=== PATIENT | male | born 1955 | race Caucasian/White ===

== ENCOUNTER 2022-10-05 17:05 | Emergency (ER) | payer MEDICARE ==
--- NOTE | 2022-10-05 17:11 | ERPHSYRPT ---
- History of Present Illness Time Seen by Provider: 10/05/22 17:11 Source: patient, family Exam Limitations: no limitations Physician History: This is a 67 y/o white male s/p right bka who fell this morning after getting his left foot caught in a truck when he was trying to get out. Patient did not hit his head and has no other pain complaints. Patient has a history of peripheral vascular disease, peripheral neuropathy, hyperlipidemia, coronary disease, gastroesophageal reflux disease and insulin-dependent diabetes. Occurred: this morning Reason for Fall: lost balance Injuries/Pain Location: lower extremity (left foot and ankle) Loss of Consciousness: no loss of consciousness Quality: aching Severity of Pain-Max: moderate Severity of Pain-Current: mild (to modrate) Associated Symptoms (Fall): extremity injury ( left foot and ankle) Allergies/Adverse Reactions: No Known Drug Allergies Allergy (Unverified 10/05/22 17:31) Home Medications: Fenofibrate 160 mg PO DAILY 10/05/22 [History] Gabapentin [Neurontin ] 300 mg PO DAILY 10/05/22 [History] Insulin Lispro 35 unit SQ UD 10/05/22 [History] Insulin Regular, Human [Humulin R U-500 Kwikpen] 0 unit SQ TID 10/05/22 [History] Isosorbide Mononitrate [Isosorbide Mononitrate ER] 60 mg PO DAILY 10/05/22 [History] PANTOPRAZOLE 40 mg Tablet [Protonix 40MG Tablet] 40 mg PO DAILY 10/05/22 [History] Semaglutide [Ozempic] 1 mg SQ WEEKLY 10/05/22 [History] Travel Risk - International Travel Have you traveled outside of the country in past 3 weeks: No - Coronavirus Screening Are you exhibiting any of the following symptoms?: No Close contact with a COVID-19 positive Pt in past 14-21 Days: No - Review of Systems Constitutional: No Symptoms Eyes: No Symptoms Ears, Nose, & Throat: No Symptoms Respiratory: No Symptoms Cardiac: No Symptoms Abdominal/Gastrointestinal: No Symptoms Genitourinary Symptoms: No Symptoms Musculoskeletal: Fall, Injury (Left foot and ankle) Skin: No Symptoms Neurological: No Symptoms Psychological: No Symptoms Endocrine: No Symptoms Hematologic/Lymphatic: No Symptoms Immunological/Allergic: No Symptoms All Other Systems: Reviewed and Negative - Past Medical History Pertinent Past Medical History: Yes Neurological History: Peripheral Neuropathy Cardiac History: Coronary Artery Disease, High Cholesterol, Hypertension, Peripheral Vascular Disease Respiratory History: No Pertinent History Endocrine Medical History: Diabetes Type II Musculoskeletal History: Arthritis Other Medical History: CABG 2014, BKA 2019, sugar read in abdomen. - Nursing Vital Signs Nursing Vital Signs: Initial Vital Signs Temperature 97.5 F 10/05/22 17:14 Pulse Rate 101 H 10/05/22 17:14 Blood Pressure 106/73 10/05/22 17:14 O2 Sat by Pulse Oximetry 98 10/05/22 17:14 Pain Scale Pain Intensity 5 - Sahil Coma Score Best Eye Response ([place]): (4) open spontaneously Best Verbal Response (Sahil): (5) oriented Best Motor Response ([place]): (6) obeys commands Sahil Total: 15 - Physical Exam General Appearance: no apparent distress, alert, anxiety Head Injury: no evidence of injury Eye Exam: PERRL/EOMI, eyes nml inspection ENT Exam: airway nml, nml ext.inspection, No evidence of ENT injury Neck Exam: supple, trachea midline, full range of motion, normal alignment, normal inspection Respiratory/Chest Exam: No chest tenderness, No respiratory distress Gastrointestinal Exam: No tenderness Rectal Exam: not done Back Exam: normal inspection, normal range of motion, No CVA tenderness, No vertebral tenderness Extremity Exam: normal inspection, normal range of motion, capillary refill <3 sec, pelvis stable, tenderness (Left foot and ankle), No evidence of injury Neurologic Exam: alert, oriented x 3, cooperative, 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 interpreted by me xray left foot no acute fx or dislocation. interpreted by me This patient's medical issue is 1 of low complexity. This is based on the review of the patient's past medical history, review of the patient's medication list, review of the patient's medical allergy list, review of the history of present illness and physical examination. Work-up includes x-ray of the patient's left foot and left ankle. I interpreted the results of the x-ray. There are no acute findings. Discharge plan is to wear the Butch wrap for comfort. Keep the left leg elevated above the level of heart. Ice pack to the tender areas. Use Tylenol and ibuprofen for pain control and swelling control. Medical Desision Making - Discussion of managment Agreed on:: Treatment plan, need for follow-up - Diagnostic Testing Diagnostic test were ordered, analyzed, and reviewed by me: Yes Radiological Interpretation: Interpreted by me - Risk of complications Low Risk: Low risk of morbidity from additional dx testing or treatment - Departure Departure Disposition: Home Clinical Impression: Left ankle sprain, Sprain of left foot Condition: Stable Critical Care Time: No Referrals: FARHAN OCAMPO MD [Primary Care Provider] - Follow up/PCP as directed Additional Instructions: Ice pack to area 3 times a day for the next 48 hours. Use Tylenol and ibuprofen for pain control. Wear the Butch wrap for comfort. Elevate the left lower extremity above the level of your heart when not ambulating to help control pain and swelling. Follow-up with your primary care provider for persistent pain and swelling.
[2022-10-05 17:31] VITALS: BP 106/73; PULSE 101; O2SAT 98
--- NOTE | 2022-10-06 08:49 | XRAY ---
Indication: Status post fall. Limited range of motion. Comparison: None 3 view left ankle demonstrates osteopenia, tiny heel spurs, moderate scattered vascular calcifications, mild lateral soft tissue swelling, and medial lower leg vascular clip. No other bony, articular, or soft tissue abnormalities.
--- NOTE | 2022-10-06 08:51 | XRAY ---
Indication: Status post fall. Limited range of motion. Comparison: None 3 nonweightbearing views left foot demonstrates osteopenia, tiny heel spurs, moderate scattered vascular calcifications, mild diffuse soft tissue swelling, and 1 cm linear foreign body plantar soft tissues between 4th/5th metatarsals. No other bony, articular, or soft tissue abnormalities.
== END 2022-10-05 18:56 | disposition home or self-care (01) ==
LOC: ED 17:05
DX: S93.402A Sprain of unspecified ligament of left ankle, initial encounter (principal); S93.602A Unspecified sprain of left foot, initial encounter; V58.4XXA Person boarding or alighting a pick-up truck or van injured in noncollision transport accident, initial encounter; Z89.511 Acquired absence of right leg below knee; E11.42 Type 2 diabetes mellitus with diabetic polyneuropathy; E78.5 Hyperlipidemia, unspecified; I10 Essential (primary) hypertension; Z79.4 Long term (current) use of insulin; Z79.899 Other long term (current) drug therapy; Z79.85 Long-term (current) use of injectable non-insulin antidiabetic drugs
CPT/HCPCS: 73610; 73630; 99283

== ENCOUNTER 2023-08-17 13:30 | Emergency (ER) | payer MEDICARE ==
[2023-08-17 13:53] VITALS: RESP 20; TEMP 99
[2023-08-17] MEDS ORDERED: NORCO 5/325 MG ONE ×2 (16:44→19:20)
[2023-08-17] MEDS: NORCO 5/325 MG PO ONE ×2 (16:46→19:20)
[2023-08-17 17:14] LABS: Absolute Neutrophil Ct (ANC) 4.43 x10^3/uL (1.4-6.9); BASOPHIL % 0.9 % (0.0-0.4); Basophil (Absolute #) 0.07 x10^3/uL (0-0.4); Eosinophil % 2.5 % (0.00-5.0); Hematocrit 41.3 % (42-50); Hemoglobin 13.3 g/dL (12.5-18.0); IMMATURE GRAN # 0.04 x10^3u/L (0.00-0.03); IMMATURE GRAN % 0.5 % (0.00-0.4); Lymphocyte (Absolute #) 2.55 x10^3/uL (1.0-4.6); Lymphocytes % 32.4 % (24.0-44.0); Mean Cell Volume 85.7 fL (78-100); Mean Corpuscular Hemoglobin 27.6 pg (26-32); Mean Corpuscular Hgb Concent. 32.2 g/dL (32-36); Mean Platelet Volume 9.4 fL (7.5-11.0); Monocyte (Absolute #) 0.57 x10^3/uL (0.0-1.3); Monocytes % 7.3 % (0.0-12.0); Neutrophil % 56.4 % (36.0-66.0); Platelet Count 220 x10^3/uL (150-450); Red Blood Count 4.82 x10^6/uL (4.1-5.6); White Blood Count 7.9 x10^3/uL (4.0-10.5)
[2023-08-17 17:30] LABS: ALBUMIN 4.8 g/dL (3.5-5.0); ANION GAP 14.7 MEQ/L (5-15); BILIRUBIN,TOTAL 0.6 mg/dL (0.2-1.3); Calcium 10.9 mg/dL (8.4-10.2); Creatinine 1 1.2 mg/dL (0.66-1.25); EST GLOMERULAR FILTRATION RATE 65.5 ML/MIN; Potassium 4.2 mmol/L (3.5-5.1); Total Protein 7.5 g/dL (6.3-8.2)
--- NOTE | 2023-08-17 18:41 | ERPHSYRPT ---
- History of Present Illness Time Seen by Provider: 08/17/23 16:26 Source: patient, family Exam Limitations: physical impairment Patient Subjective Stated Complaint: Pt states "My left foot is red and I have been trying to take care of it but for the past two weeks the pain is horrible." Triage Nursing Assessment: Pt presented alert and oriented X 3, skin pwd. Pt able to speak in clear full sentences. Pt right foot amutated just above ankle, pt left foot has closed wounds with scabs and foot is red, hot, tender and swollen. Physician History: 68-year-old male with history of diabetes mellitus with right below-knee amputation, hypertension, contractures, limited mobility presented in the ER with 2 weeks history of left foot swelling and redness. He has been seen outpatient and has finished course of Omnicef with no significant relief. Patient denies any fever or chills but does report having increasing pain. No fall or trauma to the foot/ankle reported. No obvious skin break. Allergies/Adverse Reactions: No Known Drug Allergies Allergy (Verified 08/17/23 13:53) Home Medications: Fenofibrate 160 mg PO DAILY 10/05/22 [History] Gabapentin [Neurontin ] 300 mg PO DAILY 10/05/22 [History] Insulin Lispro 35 unit SQ UD 10/05/22 [History] Insulin Regular, Human [Humulin R U-500 Kwikpen] 0 unit SQ TID 10/05/22 [History] Isosorbide Mononitrate [Isosorbide Mononitrate ER] 60 mg PO DAILY 10/05/22 [History] PANTOPRAZOLE 40 mg Tablet [Protonix 40MG Tablet] 40 mg PO DAILY 10/05/22 [History] Clopidogrel Bisulfate [Clopidogrel] 75 mg PO DAILY 08/17/23 [History] Metoprolol Succinate [Toprol Xl] 25 mg PO DAILY 08/17/23 [History] Hx Tetanus, Diphtheria Vaccination/Date Given: No (couple years) Hx Influenza Vaccination/Date Given: Yes Hx Pneumococcal Vaccination/Date Given: Yes Immunizations Up to Date: Yes Travel Risk - International Travel Have you traveled outside of the country in past 3 weeks: No - Coronavirus Screening Are you exhibiting any of the following symptoms?: No Close contact with a COVID-19 positive Pt in past 14-21 Days: No - Vaccine Status Have you recieved a Covid-19 vaccination: Yes School Custodian: [employer] - Vaccination Dates Date of 2cond Vaccination (if applicable): 2020 - Review of Systems Constitutional: No Symptoms Eyes: No Symptoms Respiratory: No Symptoms Cardiac: No Symptoms Abdominal/Gastrointestinal: No Symptoms Genitourinary Symptoms: No Symptoms Skin: Cellulitis, Rash Neurological: No Symptoms Endocrine: No Symptoms Hematologic/Lymphatic: No Symptoms - Past Medical History Pertinent Past Medical History: Yes Neurological History: Other Cardiac History: Hypertension, Myocardial Infarction ([place]) Respiratory History: No Pertinent History Endocrine Medical History: Diabetes Type II, Other Musculoskeletal History: No Pertinent History Other Medical History: GABAPENTIN, MEDICATION FOR PHANTOM PAINS. CABCX3, STINTS. [place] X2. R BKA. - Past Surgical History Past Surgical History: Yes Cardiac: Other Musculoskeletal: Amputation Other Surgical History: Rt hand tendons. triple bypass. rt leg amputation 2019 - Social History Smoking Status: Former smoker Exposure to second hand smoke: No Drug Use: none Patient Lives Alone: Yes - Nursing Vital Signs Nursing Vital Signs: Initial Vital Signs Temperature 99.0 F 08/17/23 13:48 Pulse Rate 110 H 08/17/23 13:48 Respiratory Rate 20 08/17/23 13:48 Blood Pressure 112/63 08/17/23 13:48 O2 Sat by Pulse Oximetry 97 08/17/23 13:48 Pain Scale Pain Intensity 0 - Physical Exam General Appearance: no apparent distress, alert Eye Exam: PERRL/EOMI Ears, Nose, Throat Exam: normal ENT inspection Neck Exam: normal inspection, full range of motion Respiratory Exam: normal breath sounds, lungs clear Cardiovascular Exam: regular rate/rhythm, normal heart sounds Extremity Exam: other (Right below-knee amputation, left foot swelling with mild erythema. Mild tenderness. Minimal increase in the temperature. 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 Skin Exam: normal color SpO2 Interpretation: normal SpO2: 96 O2 Delivery: Room Air Ordered Tests: Active Orders 24 hr Category Date Time Status BLOOD CULTURE Stat Lab 08/17/23 16:58 Received CBC W DIFF Stat Lab 08/17/23 16:58 Completed CMP Stat Lab 08/17/23 16:58 Completed Lactic Acid Stat Lab 08/17/23 16:40 Completed PROCALCITONIN Stat Lab 08/17/23 16:58 Completed Medication Summary Discontinued Medications Generic Name Dose Route Start Last Admin Trade Name Claritza PRN Reason Stop Dose Admin Hydrocodone Bitart/Acetaminophen 2 tab 08/17/23 16:40 08/17/23 16:46 Hydrocodone/Apap 5/325 1 Tab Tablet PO 08/17/23 16:41 2 tab STAT ONE Administration Hydrocodone Bitart/Acetaminophen Confirm 08/17/23 16:44 Hydrocodone/Apap 5/325 1 Tab Tablet Administered 08/17/23 16:45 Dose 2 tab .ROUTE .STK-MED ONE Lab/Rad Data: Laboratory Result Diagrams 08/17/23 16:58 08/17/23 16:58 Laboratory Results 08/17/23 08/17/23 08/17/23 Range/Units 16:58 16:58 16:58 WBC 7.9 (4.0-10.5) x10^3/uL RBC 4.82 (4.1-5.6) x10^6/uL Hgb 13.3 (12.5-18.0) g/dL Hct 41.3 L (42-50) % MCV 85.7 (78-100) fL MCH 27.6 (26-32) pg MCHC 32.2 (32-36) g/dL RDW 14.0 (11.5-14.0) % Plt Count 220 (150-450) x10^3/uL MPV 9.4 (7.5-11.0) fL Gran % 56.4 (36.0-66.0) % Immature Gran % (Auto) 0.5 H (0.00-0.4) % Nucleat RBC Rel Count 0.0 (0.00-0.1) % Eos # (Auto) 0.20 (0-0.5) x10^3/uL Immature Gran # (Auto) 0.04 H (0.00-0.03) x10^3u/L Absolute Lymphs (auto) 2.55 (1.0-4.6) x10^3/uL Absolute Monos (auto) 0.57 (0.0-1.3) x10^3/uL Absolute Nucleated RBC 0.00 (0.00-0.01) x10^3u/L Lymphocytes % 32.4 (24.0-44.0) % Monocytes % 7.3 (0.0-12.0) % Eosinophils % 2.5 (0.00-5.0) % Basophils % 0.9 (0.0-0.4) % Absolute Granulocytes 4.43 (1.4-6.9) x10^3/uL Basophils # 0.07 (0-0.4) x10^3/uL Sodium 139 (137-145) mmol/L Potassium 4.2 (3.5-5.1) mmol/L Chloride 106 (98-107) mmol/L Carbon Dioxide 22 (22-30) mmol/L Anion Gap 14.7 (5-15) MEQ/L BUN 33 H (9-20) mg/dL Creatinine 1.20 (0.66-1.25) mg/dL Estimated GFR 65.5 ML/MIN Glucose 139 H (74-106) mg/dL Lactic Acid (0.4-2.0) Calcium 10.9 H (8.4-10.2) mg/dL Total Bilirubin 0.60 (0.2-1.3) mg/dL AST 36 (17-59) U/L ALT 41 (0-50) U/L Alkaline Phosphatase 60 (38-126) U/L Serum Total Protein 7.5 (6.3-8.2) g/dL Albumin 4.8 (3.5-5.0) g/dL Procalcitonin 0.120 H (0.030-0.080) ng/mL 08/17/23 Range/Units 16:40 WBC (4.0-10.5) x10^3/uL RBC (4.1-5.6) x10^6/uL Hgb (12.5-18.0) g/dL Hct (42-50) % MCV (78-100) fL MCH (26-32) pg MCHC (32-36) g/dL RDW (11.5-14.0) % Plt Count (150-450) x10^3/uL MPV (7.5-11.0) fL Gran % (36.0-66.0) % Immature Gran % (Auto) (0.00-0.4) % Nucleat RBC Rel Count (0.00-0.1) % Eos # (Auto) (0-0.5) x10^3/uL Immature Gran # (Auto) (0.00-0.03) x10^3u/L Absolute Lymphs (auto) (1.0-4.6) x10^3/uL Absolute Monos (auto) (0.0-1.3) x10^3/uL Absolute Nucleated RBC (0.00-0.01) x10^3u/L Lymphocytes % (24.0-44.0) % Monocytes % (0.0-12.0) % Eosinophils % (0.00-5.0) % Basophils % (0.0-0.4) % Absolute Granulocytes (1.4-6.9) x10^3/uL Basophils # (0-0.4) x10^3/uL Sodium (137-145) mmol/L Potassium (3.5-5.1) mmol/L Chloride (98-107) mmol/L Carbon Dioxide (22-30) mmol/L Anion Gap (5-15) MEQ/L BUN (9-20) mg/dL Creatinine (0.66-1.25) mg/dL Estimated GFR ML/MIN Glucose (74-106) mg/dL Lactic Acid 1.8 (0.4-2.0) Calcium (8.4-10.2) mg/dL Total Bilirubin (0.2-1.3) mg/dL AST (17-59) U/L ALT (0-50) U/L Alkaline Phosphatase (38-126) U/L Serum Total Protein (6.3-8.2) g/dL Albumin (3.5-5.0) g/dL Procalcitonin (0.030-0.080) ng/mL - Progress Progress: improved, pain not gone completely Progress Note: 08/17/23 18:38 68-year-old is evaluated in the ER for right foot swelling and concern for cellulitis. Patient has no fever. Mild tenderness and increased temperature. Minimal redness of the distal foot. Patient has finished course of Omnicef. Workup showed normal white count, normal lactate, mildly elevated procalcitonin. I will start him on doxycycline. Do not think patient needs to be admitted or needs imaging. Recommended outpatient follow-up. Discussed signs symptoms of worsening needing return to ER which she seems understanding. Stable for discharge. Counseled pt/family regarding: lab results, diagnosis, need for follow-up Medical Desision Making - Independent Historian Additional History obtained from: Relative/friend - Diagnostic Testing Diagnostic test were ordered, analyzed, and reviewed by me: Yes - Risk of complications The pt has a mod risk of morbidity or mortality based on: Need for prescription drug management - Departure Departure Disposition: Home Clinical Impression: Cellulitis of foot Condition: Stable Critical Care Time: No Referrals: BRIAN STONE MD [Primary Care Provider] - Follow up with PCP 1 day Instructions: Cellulitis (Skin Infection), Adult (DC) Additional Instructions: Tylenol/ibuprofen as needed. Keep it elevated. Follow-up with primary care for reevaluation in 1 to 2 days. Return to ER for increasing pain swelling redness, fever chills etc. Prescriptions: Doxycycline Hyclate 100 mg [Vibramycin 100 MG] 100 mg PO BID #14 tab
[2023-08-17] MEDS ORDERED: Vibramycin 100 MG ONE (19:15)
[2023-08-17] MEDS: Vibramycin 100 MG PO ONE (19:16)
[2023-08-17 19:18] VITALS: BP 124/65; PULSE 91; O2SAT 95
== END 2023-08-17 19:25 | disposition home or self-care (01) ==
LOC: ED 13:30
DX: L03.116 Cellulitis of left lower limb (principal); M79.605 Pain in left leg; E11.9 Type 2 diabetes mellitus without complications; I10 Essential (primary) hypertension; Z79.4 Long term (current) use of insulin; Z79.02 Long term (current) use of antithrombotics/antiplatelets; Z79.899 Other long term (current) drug therapy; Z89.511 Acquired absence of right leg below knee
CPT/HCPCS: 36415; 80053; 83605; 84145; 85025; 87040; 99283; A9270-GY

== ENCOUNTER 2023-12-15 10:37 | Emergency (ER) | payer MEDICARE ==
[2023-12-15 10:59] VITALS: TEMP 97.6
[2023-12-15 12:04] LABS: Absolute Neutrophil Ct (ANC) 5.12 x10^3/uL (1.78-5.38); BASOPHIL % 0.9 % (0.2-1.2); Basophil (Absolute #) 0.07 x10^3/uL (0.01-0.08); Eosinophil % 2.1 % (0.8-7.0); Eosinophil (Absolute #) 0.16 x10^3/uL (0.04-0.54); Hematocrit 41.4 % (40.1-51.0); Hemoglobin 13.4 g/dL (13.7-17.5); IMMATURE GRAN # 0.04 x10^3u/L (0.001-0.031); IMMATURE GRAN % 0.5 % (0.001-0.429); Lymphocyte (Absolute #) 1.69 x10^3/uL (1.32-3.57); Lymphocytes % 22.5 % (21.8-53.1); Mean Cell Volume 85.4 fL (79.0-92.2); Mean Corpuscular Hemoglobin 27.6 pg (25.7-32.2); Mean Corpuscular Hgb Concent. 32.4 g/dL (32.3-36.5); Mean Platelet Volume 9.2 fL (9.4-12.4); Monocyte (Absolute #) 0.42 x10^3/uL (0.30-0.82); Monocytes % 5.6 % (5.3-12.2); Neutrophil % 68.4 % (34.0-67.9); Platelet Count 211 x10^3/uL (163-337); Red Blood Count 4.85 x10^6/uL (4.63-6.08); White Blood Count 7.5 x10^3/uL (4.23-9.07)
--- NOTE | 2023-12-15 12:22 | XRAY ---
Indication: Swelling. Osteomyelitis. Comparison: October 05, 2022 3 portable views left foot unchanged again demonstrating osteopenia, tiny heel spurs, moderate scattered vascular calcifications, mild diffuse soft tissue swelling, and 1 cm linear foreign body plantar soft tissues. No new bony, articular, or soft tissue abnormalities.
[2023-12-15 12:26] LABS: ISTAT K 4.1 mmol/L (3.5-4.9); ISTAT iCA 1.31 mmol/L (1.12-1.32)
[2023-12-15 12:27] LABS: ISTAT CREA 1.4 mg/dL (0.6-1.3)
[2023-12-15 13:19] LABS: ALBUMIN 4.6 g/dL (3.5-5.0); ANION GAP 14.1 MEQ/L (5-15); BILIRUBIN,TOTAL 0.5 mg/dL (0.2-1.3); Calcium 10.6 mg/dL (8.4-10.2); Creatinine 1 1.3 mg/dL (0.66-1.25); EST GLOMERULAR FILTRATION RATE 59.5 ML/MIN; Potassium 4.2 mmol/L (3.5-5.1); Total Protein 7.5 g/dL (6.3-8.2)
--- NOTE | 2023-12-15 13:46 | ERPHSYRPT ---
- History of Present Illness Time Seen by Provider: 12/15/23 10:51 Source: patient Exam Limitations: no limitations Patient Subjective Stated Complaint: Pt c/o of left foot sores from diabetes and has pain that goes up to his left knee Triage Nursing Assessment: Pt was brought to the ER by nataliia Samuel, rates pain as 5/10, came to the hospital for a blood draw but decided to check into the ER to have his foot looked at due to last time he was here he was told that if it didn't improve that he would be placed in the hospital next time, pt has multiple ulcers on his left foot and has a BTK amputation on the right, left pulse barely felt, Physician History: 68-year-old male with a history of hypertension, hyperlipidemia, diabetes mellitus with right below-knee amputations who presented in the ER with complaint of left foot swelling and toes blisters. Patient reports dull aching mild to moderate pain at times on the distal foot with some redness and swelling. Occasionally pain radiates to the ankle and lower leg. Patient denies any fever or chills. Has multiple ulcers/lesions on the foot. Denies any fall or trauma recently. Patient was here for prior blood draw for routine workup and decided to be seen in the ER as he did get cellulitis few months ago. Allergies/Adverse Reactions: No Known Drug Allergies Allergy (Verified 12/15/23 10:58) Home Medications: Fenofibrate 180 mg PO DAILY 10/05/22 [History] Gabapentin [Neurontin ] 300 mg PO TID 10/05/22 [History] Insulin Lispro 40 unit SQ UD 10/05/22 [History] Insulin Regular, Human [Humulin R U-500 Kwikpen] 0 unit SQ TID 10/05/22 [History] Isosorbide Mononitrate [Isosorbide Mononitrate ER] 60 mg PO DAILY 10/05/22 [History] PANTOPRAZOLE 40 mg Tablet [Protonix 40MG Tablet] 40 mg PO DAILY 10/05/22 [History] Clopidogrel Bisulfate [Clopidogrel] 75 mg PO DAILY 08/17/23 [History] Metoprolol Succinate [Toprol Xl] 25 mg PO DAILY 08/17/23 [History] Aspirin 81 gm Chew [Baby Aspirin 81 mg Chew] 81 mg PO QAM 06/13/24 [History] Atorvastatin Calcium 80 mg PO DAILY 12/15/23 [History] Clopidogrel Bisulfate [Clopidogrel] 75 mg PO DAILY 12/15/23 [History] Dapagliflozin Propanediol [Farxiga] 10 mg PO DAILY 12/15/23 [History] Duloxetine HCl 60 mg PO DAILY 12/15/23 [History] Isosorbide Mononitrate [Isosorbide Mononitrate ER] 60 mg PO DAILY 12/15/23 [History] Lisinopril 10 mg [Zestril 10 MG] 10 mg PO DAILY 12/15/23 [History] Tamsulosin HCl 0.4 mg [Flomax 0.4 MG] 0.4 mg PO DAILY 12/15/23 [History] Hx Tetanus, Diphtheria Vaccination/Date Given: No (couple years) Hx Influenza Vaccination/Date Given: Yes Hx Pneumococcal Vaccination/Date Given: Yes Travel Risk - International Travel Have you traveled outside of the country in past 3 weeks: No - Emerging Infectious Disease Are you exhibiting symptoms associated with any current EIDs: No - Review of Systems Constitutional: No Symptoms Ears, Nose, & Throat: No Symptoms Respiratory: No Symptoms Cardiac: No Symptoms Abdominal/Gastrointestinal: No Symptoms Musculoskeletal: Arthralgias Skin: Cellulitis, Rash, Skin Lesions Neurological: No Symptoms Psychological: No Symptoms Endocrine: No Symptoms - Past Medical History Pertinent Past Medical History: Yes Neurological History: Other Cardiac History: Hypertension, Myocardial Infarction ([place]) Respiratory History: No Pertinent History Endocrine Medical History: Diabetes Type II, Other Musculoskeletal History: No Pertinent History Other Medical History: GABAPENTIN, MEDICATION FOR PHANTOM PAINS. CABCX3, STINTS. [place] X2. R BKA. - Past Surgical History Past Surgical History: Yes Cardiac: Other Musculoskeletal: Amputation Other Surgical History: Rt hand tendons. triple bypass. rt leg amputation 2019 - Social History Smoking Status: Former smoker Exposure to second hand smoke: No Drug Use: none Patient Lives Alone: Yes - Social Determinants of Health Will the patient participate in the screening: Yes Do you worry about a steady place to live?: No Do you have any problems with any of the following?: No known problems In the past 12 months,have you had to go without utilities?: No Transportation Issues: No Has anyone in your support network made you feel unsafe?: No Have you or anyone in your house had to go without enough: No - Nursing Vital Signs Nursing Vital Signs: Initial Vital Signs Temperature 97.6 F 12/15/23 10:46 Pulse Rate 96 H 12/15/23 10:46 Blood Pressure 136/68 12/15/23 10:46 O2 Sat by Pulse Oximetry 99 12/15/23 10:46 Pain Scale Pain Intensity 0 - Physical Exam General Appearance: no apparent distress, alert Eyes, Ears, Nose, Throat Exam: normal ENT inspection Neck Exam: normal inspection, supple, full range of motion Cardiovascular/Respiratory Exam: chest non-tender, normal breath sounds Gastrointestinal/Abdominal Exam: non-tender, soft Legs Exam: right leg: other (Right below-knee amputation) Knees Exam: bilateral knee: normal range of motion, no evidence of injury Ankle Exam: left ankle: non-tender, normal inspection, normal range of motion Foot Exam: left foot: abrasions/lacerations, pain, soft tissue tenderness, swelling (Distal foot and toes with blistering second and third toe) Neuro/Tendon Exam: normal motor functions Mental Status Exam: alert, oriented x 3, cooperative Skin Exam: normal color SpO2 Interpretation: normal SpO2: 98 O2 Delivery: Room Air Ordered Tests: Active Orders 24 hr Category Date Time Status FOOT (MINIMUM 3 VIEWS) Stat Exams 12/15/23 11:14 Completed BLOOD CULTURE Stat Lab 12/15/23 11:56 Received CBC W DIFF Stat Lab 12/15/23 11:44 Completed CMP Stat Lab 12/15/23 11:44 Completed Erythrocyte Sedimentation Rate Stat Lab 12/15/23 11:44 Completed Lactic Acid Stat Lab 12/15/23 11:14 Completed Lactic Acid Stat Lab 12/15/23 13:45 Received PROCALCITONIN Stat Lab 12/15/23 11:44 Received Medication Summary Discontinued Medications Generic Name Dose Route Start Last Admin Trade Name Freq PRN Reason Stop Dose Admin Doxycycline Hyclate 100 mg 12/15/23 13:44 Doxycycline Hyclate 100 Mg Tablet PO 12/15/23 13:45 STAT ONE Doxycycline Hyclate Confirm 12/15/23 13:49 Doxycycline Hyclate 100 Mg Tablet Administered 12/15/23 13:50 Dose 100 mg .ROUTE .[facility] Lab/Rad Data: Laboratory Result Diagrams 12/15/23 11:44 12/15/23 11:44 Laboratory Results 12/15/23 12/15/23 12/15/23 Range/Units 11:44 11:44 11:44 WBC (4.23-9.07) x10^3/uL RBC (4.63-6.08) x10^6/uL Hgb (13.7-17.5) g/dL Hct (40.1-51.0) % MCV (79.0-92.2) fL MCH (25.7-32.2) pg MCHC (32.3-36.5) g/dL RDW (11.6-14.4) % Plt Count (163-337) x10^3/uL MPV (9.4-12.4) fL Gran % (34.0-67.9) % Immature Gran % (Auto) (0.001-0.429) % Nucleat RBC Rel Count (0.00-0.2) % Eos # (Auto) (0.04-0.54) x10^3/uL Immature Gran # (Auto) (0.001-0.031) x10^3u/L Absolute Lymphs (auto) (1.32-3.57) x10^3/uL Absolute Monos (auto) (0.30-0.82) x10^3/uL Absolute Nucleated RBC (0.00-0.012) x10^3u/L Lymphocytes % (21.8-53.1) % Monocytes % (5.3-12.2) % Eosinophils % (0.8-7.0) % Basophils % (0.2-1.2) % Absolute Granulocytes (1.78-5.38) x10^3/uL Basophils # (0.01-0.08) x10^3/uL ESR 12 (0-15) mm/hr Sodium 142 (135-145) mmol/L Sodium Direct 141 (138-146) mmol/L Potassium 4.2 (3.5-5.1) mmol/L Chloride 105 (98-107) mmol/L Carbon Dioxide 27 (22-30) mmol/L Anion Gap 14.1 (5-15) MEQ/L BUN 26 H (9-20) mg/dL Venous BUN 31 H (8-26) mg/dL Creatinine 1.30 H (0.66-1.25) mg/dL Estimated GFR 59.5 ML/MIN Glucose 156 H (74-106) mg/dL Lactic Acid (0.4-2.0) Calcium 10.6 H (8.4-10.2) mg/dL Ionized Calcium 1.31 (1.12-1.32) mmol/L Total Bilirubin 0.50 (0.2-1.3) mg/dL AST 37 (17-59) U/L ALT 30 (0-50) U/L Alkaline Phosphatase 50 (38-126) U/L Serum Total Protein 7.5 (6.3-8.2) g/dL Albumin 4.6 (3.5-5.0) g/dL Procalcitonin 0.072 (0.030-0.080) ng/mL 12/15/23 12/15/23 Range/Units 11:44 11:14 WBC 7.5 (4.23-9.07) x10^3/uL RBC 4.85 (4.63-6.08) x10^6/uL Hgb 13.4 L (13.7-17.5) g/dL Hct 41.4 (40.1-51.0) % MCV 85.4 (79.0-92.2) fL MCH 27.6 (25.7-32.2) pg MCHC 32.4 (32.3-36.5) g/dL RDW 14.0 (11.6-14.4) % Plt Count 211 (163-337) x10^3/uL MPV 9.2 L (9.4-12.4) fL Gran % 68.4 H (34.0-67.9) % Immature Gran % (Auto) 0.5 H (0.001-0.429) % Nucleat RBC Rel Count 0.0 (0.00-0.2) % Eos # (Auto) 0.16 (0.04-0.54) x10^3/uL Immature Gran # (Auto) 0.04 H (0.001-0.031) x10^3u/L Absolute Lymphs (auto) 1.69 (1.32-3.57) x10^3/uL Absolute Monos (auto) 0.42 (0.30-0.82) x10^3/uL Absolute Nucleated RBC 0.00 (0.00-0.012) x10^3u/L Lymphocytes % 22.5 (21.8-53.1) % Monocytes % 5.6 (5.3-12.2) % Eosinophils % 2.1 (0.8-7.0) % Basophils % 0.9 (0.2-1.2) % Absolute Granulocytes 5.12 (1.78-5.38) x10^3/uL Basophils # 0.07 (0.01-0.08) x10^3/uL ESR (0-15) mm/hr Sodium (135-145) mmol/L Sodium Direct (138-146) mmol/L Potassium (3.5-5.1) mmol/L Chloride (98-107) mmol/L Carbon Dioxide (22-30) mmol/L Anion Gap (5-15) MEQ/L BUN (9-20) mg/dL Venous BUN (8-26) mg/dL Creatinine (0.66-1.25) mg/dL Estimated GFR ML/MIN Glucose (74-106) mg/dL Lactic Acid 2.1 H (0.4-2.0) Calcium (8.4-10.2) mg/dL Ionized Calcium (1.12-1.32) mmol/L Total Bilirubin (0.2-1.3) mg/dL AST (17-59) U/L ALT (0-50) U/L Alkaline Phosphatase (38-126) U/L Serum Total Protein (6.3-8.2) g/dL Albumin (3.5-5.0) g/dL Procalcitonin (0.030-0.080) ng/mL - Progress Progress: unchanged Progress Note: 12/15/23 13:52 68-year-old diabetic with history of right below-knee amputation is evaluated in the ER for left foot swelling, blistering of toes and some ulcerations. Patient has minimal tenderness. No increased temperature in the distal foot. Has fluid-filled blister on the toes which I believe is secondary to friction with the shoes. He is recommended to use soft shoes. Workup showed normal white count, lactate of 2.1 and a normal procalcitonin. Stable CKD. X-rays negative for acute osseous findings. Patient has mild cellulitis of the toes and distal foot, started on doxycycline. Outpatient podiatry follow-up recommended. Do not think patient needs to be admitted and can be discharged with outpatient follow-up. Discussed signs symptoms of worsening needing return to ER which she seems understanding. Stable for discharge. Medical Desision Making - Diagnostic Testing Diagnostic test were ordered, analyzed, and reviewed by me: Yes Radiological Interpretation: Reviewed by me - Risk of complications The pt has a mod risk of morbidity or mortality based on: Need for prescription drug management - Departure Departure Disposition: Home Clinical Impression: Cellulitis of foot Condition: Stable Critical Care Time: No Referrals: BRIAN STONE MD [Primary Care Provider] - Follow up with PCP 1 day JUAN MANUEL HIGH DPM [ACTIVE STAFF] - Follow up/PCP as directed Instructions: Cellulitis (skin infection) in adults - Discharge instructions Additional Instructions: Use soft shoes, follow-up with podiatry for reevaluation as recommended. Also follow-up with primary care. Monitor your glucose regularly with a strict control. Return to ER for increasing swelling redness, fever chills/pain etc. Prescriptions: Doxycycline Hyclate 100 mg [Vibramycin 100 MG] 100 mg PO BID #14 tab
[2023-12-15] MEDS ORDERED: Vibramycin 100 MG ONE (13:49)
[2023-12-15] MEDS: Vibramycin 100 MG PO ONE (13:50)
[2023-12-15 14:14] VITALS: BP 139/80; PULSE 86; O2SAT 99
== END 2023-12-15 14:23 | disposition home or self-care (01) ==
LOC: ED 10:37
DX: L03.116 Cellulitis of left lower limb (principal); M79.672 Pain in left foot; I10 Essential (primary) hypertension; E78.5 Hyperlipidemia, unspecified; E11.9 Type 2 diabetes mellitus without complications; Z79.4 Long term (current) use of insulin; Z79.02 Long term (current) use of antithrombotics/antiplatelets; Z79.84 Long term (current) use of oral hypoglycemic drugs; Z79.899 Other long term (current) drug therapy
CPT/HCPCS: 36415; 73630; 80047; 80053; 83605; 84145; 85025; 85652; 87040; 99283; A9270-GY

== ENCOUNTER 2024-01-25 13:20 | Inpatient (IN) | payer MEDICARE ==
--- NOTE | 2024-01-25 13:35 | PCM.HP ---
History of Present Illness - Chief Complaint Chief Complaint: Arterial ulcer/wet gangrene Date: 01/25/24 History of Present Illness: is a 68 year old male with a pmhx CAD, HTN, DM, right foot amputation, and CKD patient of Dr. Jacobsen (podiatry) direct admit for arterial ulcer with wet gangrene to the left foot. Patient reports that symptoms started approximately 6 months-1year ago with failed OP treatments. He voices no complaints at this time but does reports constant pain to the affected left foot. He describes the pain as aching/sharp/moderate. Denies trauma. Plan is for MRI LLE/ IV abx with vanc/zosyn, dressing changes, and possible amputation per podiatry. Denies fever,cough, sob, cp, abdominal pain, STRONG, dizziness, N/V/D. - Review of Systems Constitutional: No Symptoms Eyes: No Symptoms Ears, Nose, & Throat: No Symptoms Respiratory: No Symptoms Cardiac: No Symptoms Abdominal/Gastrointestinal: No Symptoms Genitourinary Symptoms: No Symptoms Musculoskeletal: Joint Pain (Left ext ) Skin: Cellulitis (LLE) Neurological: Other (neuropathy LLE) Psychological: No Symptoms Endocrine: No Symptoms Hematologic/Lymphatic: No Symptoms Immunological/Allergic: No Symptoms All Other Systems: Reviewed and Negative Medications & Allergies Home Medications: Home Medication List Fenofibrate 180 mg PO DAILY 10/05/22 [History Confirmed 12/15/23] Gabapentin [Neurontin ] 300 mg PO TID 10/05/22 [History Confirmed 12/15/23] Insulin Lispro 40 unit SQ UD 10/05/22 [History Confirmed 12/15/23] Insulin Regular, Human [Humulin R U-500 Kwikpen] 0 unit SQ TID 10/05/22 [History Confirmed 12/15/23] PANTOPRAZOLE 40 mg Tablet [Protonix 40MG Tablet] 40 mg PO DAILY 10/05/22 [History Confirmed 12/15/23] Metoprolol Succinate [Toprol Xl] 25 mg PO DAILY 08/17/23 [History Confirmed 12/15/23] Aspirin 81 gm Chew [Baby Aspirin 81 mg Chew] 81 mg PO QAM 12/15/23 [History Confirmed 12/15/23] Atorvastatin Calcium 80 mg PO DAILY 12/15/23 [History Confirmed 12/15/23] Clopidogrel Bisulfate [Clopidogrel] 75 mg PO DAILY 12/15/23 [History Confirmed 12/15/23] Dapagliflozin Propanediol [Farxiga] 10 mg PO DAILY 12/15/23 [History Confirmed 12/15/23] Doxycycline Hyclate 100 mg [Vibramycin 100 MG] 100 mg PO BID #14 tab 12/15/23 [Rx] Duloxetine HCl 60 mg PO DAILY 12/15/23 [History Confirmed 12/15/23] Isosorbide Mononitrate [Isosorbide Mononitrate ER] 60 mg PO DAILY 12/15/23 [History Confirmed 12/15/23] Lisinopril 10 mg [Zestril 10 MG] 10 mg PO DAILY 12/15/23 [History Confirmed 12/15/23] Tamsulosin HCl 0.4 mg [Flomax 0.4 MG] 0.4 mg PO DAILY 12/15/23 [History Confirmed 12/15/23] Allergies/Adverse Reactions: Allergies Allergy/AdvReac Type Severity Reaction Status Date / Time No Known Drug Allergies Allergy Verified 01/25/24 13:35 - Past Medical History Past Medical History: Yes Neurological History: Other Cardiac History: Hypertension, Myocardial Infarction ([place]) Respiratory History: No Pertinent History Endocrine Medical History: Diabetes Type II, Other Musculoskelatal History: No Pertinent History Comment: GABAPENTIN, MEDICATION FOR PHANTOM PAINS. CABCX3, STINTS. [place] X2. R BKA. - Past Surgical History Past Surgical History: Yes Cardiac History: Other Musculskeletal Surgical Hx: Amputation Other Surgical History: Rt hand tendons. triple bypass. rt leg amputation 2019 - Social History Smoking Status: Former smoker Exposure to second hand smoke: No Alcohol: None Drug Use: none - Social Determinants of Health Will the patient participate in the screening: Yes Do you worry about a steady place to live?: No In the past 12 months,have you had to go without utilities?: No Have you or anyone in your house had to go without enough: No Transportation Issues: No Has anyone in your support network made you feel unsafe?: No - Physical Exam General Appearance: no apparent distress Neurologic Exam: alert, oriented x 3, cooperative Eye Exam: PERRL/EOMI Ears, Nose, Throat Exam: normal ENT inspection Neck Exam: normal inspection Respiratory Exam: normal breath sounds, lungs clear Cardiovascular Exam: regular rate/rhythm, normal heart sounds Gastrointestinal/Abdomen Exam: soft, normal bowel sounds Rectal Exam: deferred Back Exam: normal inspection Extremity Exam: amputations (Right foot), other (LLE wrapped) Assessment/Plan (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 No new/acute bony, articular, or soft tissue abnormalities. -Arterial US showing Stable mild/moderate scattered arteriosclerotic disease throughout left leg as detailed. -MRI LLE pending -ativan 30 mins prior -cmp, cbc, pt, CXR Code(s): E11.52 - TYPE 2 DIABETES W DIABETIC PERIPHERAL ANGIOPATHY W GANGRENE (2) CAD (coronary artery disease) Current Visit: Yes Status: Acute Assessment & Plan: -noted, patient reports three bypass surgeries -continue home meds Code(s): I25.10 - ATHSCL HEART DISEASE OF [place] CORONARY ARTERY W/O ANG PCTRS (3) Type 2 diabetes mellitus Current Visit: Yes Status: Acute Assessment & Plan: -SSI -ADA diet -A1c (4) HTN (hypertension) Current Visit: Yes Status: Acute Code(s): I10 - ESSENTIAL (PRIMARY) HYPERTENSION (5) Chronic renal disease Current Visit: Yes Status: Acute Assessment & Plan: -baseline creat at 1.3 -follows with Dr. Jeffrey -Monitor renal/lytes daily -Avoid nephrotoxic meds VTE: hold for surgery PPI: protonix Dispo 3-5 days Code(s): N18.9 - CHRONIC KIDNEY DISEASE, UNSPECIFIED
[2024-01-25] MEDS ORDERED: Zofran 4 MG/2 ML VIAL IV PRN (13:59)
--- NOTE | 2024-01-25 14:27 | XRAY ---
Indication: Short of breath. Comparison: None Portable chest clear with incidental tiny right base calcified granuloma. Heart not enlarged with incidental CABG. Bony thorax intact with mild degenerative changes. Impression: Nonacute chest with chronic features.
[2024-01-25 14:28] LABS: Absolute Neutrophil Ct (ANC) 11.53 x10^3/uL (1.78-5.38); BASOPHIL % 0.4 % (0.2-1.2); Basophil (Absolute #) 0.06 x10^3/uL (0.01-0.08); Eosinophil % 0.1 % (0.8-7.0); Eosinophil (Absolute #) 0.02 x10^3/uL (0.04-0.54); Hematocrit 37.5 % (40.1-51.0); Hemoglobin 12.2 g/dL (13.7-17.5); IMMATURE GRAN # 0.07 x10^3u/L (0.001-0.031); IMMATURE GRAN % 0.5 % (0.001-0.429); Lymphocyte (Absolute #) 1.39 x10^3/uL (1.32-3.57); Lymphocytes % 9.9 % (21.8-53.1); Mean Cell Volume 84.3 fL (79.0-92.2); Mean Corpuscular Hemoglobin 27.4 pg (25.7-32.2); Mean Corpuscular Hgb Concent. 32.5 g/dL (32.3-36.5); Mean Platelet Volume 8.9 fL (9.4-12.4); Monocyte (Absolute #) 1.03 x10^3/uL (0.30-0.82); Monocytes % 7.3 % (5.3-12.2); Neutrophil % 81.8 % (34.0-67.9); Platelet Count 265 x10^3/uL (163-337); Red Blood Count 4.45 x10^6/uL (4.63-6.08); Red Cell Distribution Width 14.2 % (11.6-14.4); White Blood Count 14.1 x10^3/uL (4.23-9.07)
[2024-01-25] MEDS: PHARMACY DOSING REQUEST MC ONE (14:37)
[2024-01-25 14:44] LABS: ALBUMIN 4.6 g/dL (3.5-5.0); ANION GAP 16.7 MEQ/L (5-15); BILIRUBIN,TOTAL 1.1 mg/dL (0.2-1.3); Calcium 10.5 mg/dL (8.4-10.2); Creatinine 1 1.28 mg/dL (0.66-1.25); EST GLOMERULAR FILTRATION RATE 60.6 ML/MIN; Potassium 3.8 mmol/L (3.5-5.1); Total Protein 8.1 g/dL (6.3-8.2)
[2024-01-25 15:09] LABS: INR 1.07 (0.8-3.0); PROTIME 11.6 SECONDS (9.4-12.5); PTT 28.4 SECONDS (25.1-36.5)
[2024-01-25] MEDS: Cymbalta 30 MG Capsule PO SCH (16:26)
[2024-01-25] MEDS: NORCO 5/325 MG PO PRN (16:27)
[2024-01-25] MEDS: NEURONTIN PO SCH (16:27)
--- NOTE | 2024-01-25 17:28 | PCM.CONS ---
Podiatry HPI - Consult Date of Consultation Date: 01/25/24 Reason for Consult: Wet gangrene left leg Consulting Provider: JUAN MANUEL HIGH DPM - [facility] History of Present Illness: is a 68 year old male with a pmhx CAD, HTN, DM, right foot amputation, and CKD with direct admit for arterial ulcer with wet gangrene to the left foot. Patient reports that symptoms started approximately 6 months-1year ago with failed OP treatments. He voices no complaints at this time but does reports constant pain to the affected left foot. He describes the pain as aching/sharp/moderate. Denies trauma. Plan is for MRI LLE/ IV abx with vanc/zosyn, dressing changes, and possible amputation. Denies fever,cough, sob, cp, abdominal pain, STRONG, dizziness, N/V/D. Medications & Allergies Home Medications: Home Medication List Fenofibrate 180 mg PO HS 10/05/22 [History Confirmed 01/25/24] Gabapentin [Neurontin ] 300 mg PO TID 10/05/22 [History Confirmed 01/25/24] Insulin Lispro 40 unit SQ UD 10/05/22 [History Confirmed 01/25/24] Insulin Regular, Human [Humulin R U-500 Kwikpen] 0 unit SQ TID 10/05/22 [History Confirmed 01/25/24] PANTOPRAZOLE 40 mg Tablet [Protonix 40MG Tablet] 40 mg PO DAILY 10/05/22 [History Confirmed 01/25/24] Metoprolol Succinate [Toprol Xl] 25 mg PO DAILY 08/17/23 [History Confirmed 01/25/24] Aspirin 81 gm Chew [Baby Aspirin 81 mg Chew] 81 mg PO DAILY 12/15/23 [History Confirmed 01/25/24] Atorvastatin Calcium 80 mg PO HS 12/15/23 [History Confirmed 01/25/24] Clopidogrel Bisulfate [Clopidogrel] 75 mg PO DAILY 12/15/23 [History Confirmed 01/25/24] Dapagliflozin Propanediol [Farxiga] 10 mg PO DAILY 12/15/23 [History Confirmed 01/25/24] Doxycycline Hyclate 100 mg [Vibramycin 100 MG] 100 mg PO BID #14 tab 12/15/23 [Rx Confirmed 01/25/24] Duloxetine HCl 60 mg PO DAILY 12/15/23 [History Confirmed 01/25/24] Isosorbide Mononitrate [Isosorbide Mononitrate ER] 60 mg PO DAILY 12/15/23 [History Confirmed 01/25/24] Lisinopril 10 mg [Zestril 10 MG] 10 mg PO DAILY 12/15/23 [History Confirmed 01/25/24] Tamsulosin HCl 0.4 mg [Flomax 0.4 MG] 0.4 mg PO HS 12/15/23 [History Confirmed 01/25/24] Allergies/Adverse Reactions: Allergies Allergy/AdvReac Type Severity Reaction Status Date / Time No Known Drug Allergies Allergy Verified 01/25/24 13:35 - Past Medical History Past Medical History: Yes Neurological History: Other ENT History: Other Cardiac History: Hypertension, Myocardial Infarction (IN) Respiratory History: No Pertinent History Endocrine Medical History: Diabetes Type II, Other Musculoskelatal History: No Pertinent History GI Medical History: GERD History: Renal Disease Comment: GABAPENTIN, MEDICATION FOR PHANTOM PAINS. CABCX3, STINTS. IN X2. R BKA. - Past Surgical History Past Surgical History: Yes Cardiac History: Other GI Surgical History: No Pertinent History Genitourinary Surgical Hx: No Pertinent History Musculskeletal Surgical Hx: Amputation Male Surgical History: No Pertinent History Other Surgical History: Rt hand tendons. triple bypass. rt leg amputation 2019 - Social History Smoking Status: Former smoker How long have you smoked: 40+ Exposure to second hand smoke: No Alcohol: None Drug Use: none - Social Determinants of Health Will the patient participate in the screening: Yes Do you worry about a steady place to live?: No Do you have any problems with any of the following?: No known problems In the past 12 months,have you had to go without utilities?: No Have you or anyone in your house had to go without enough: No Transportation Issues: No Has anyone in your support network made you feel unsafe?: No Does the patient want assistance with any of the above?: No Physical Exam - Narrative Narrative Physical Exam: Podiatry Physical Exam Results - Labs Lab/Micro Results: Lab Results-Last 24 Hours 07/24/24 07/24/24 07/24/24 Range/Units 14:20 14:20 14:20 WBC 14.1 H (4.23-9.07) x10^3/uL RBC 4.45 L (4.63-6.08) x10^6/uL Hgb 12.2 L (13.7-17.5) g/dL Hct 37.5 L (40.1-51.0) % MCV 84.3 (79.0-92.2) fL MCH 27.4 (25.7-32.2) pg MCHC 32.5 (32.3-36.5) g/dL RDW 14.2 (11.6-14.4) % Plt Count 265 (163-337) x10^3/uL MPV 8.9 L (9.4-12.4) fL Gran % 81.8 H (34.0-67.9) % Immature Gran % (Auto) 0.5 H (0.001-0.429) % Nucleat RBC Rel Count 0.0 (0.00-0.2) % Eos # (Auto) 0.02 L (0.04-0.54) x10^3/uL Immature Gran # (Auto) 0.07 H (0.001-0.031) x10^3u/L Absolute Lymphs (auto) 1.39 (1.32-3.57) x10^3/uL Absolute Monos (auto) 1.03 H (0.30-0.82) x10^3/uL Absolute Nucleated RBC 0.00 (0.00-0.012) x10^3u/L Lymphocytes % 9.9 L (21.8-53.1) % Monocytes % 7.3 (5.3-12.2) % Eosinophils % 0.1 L (0.8-7.0) % Basophils % 0.4 (0.2-1.2) % Absolute Granulocytes 11.53 H (1.78-5.38) x10^3/uL Basophils # 0.06 (0.01-0.08) x10^3/uL ESR 82 H (0-15) mm/hr PT (9.4-12.5) SECONDS INR (0.8-3.0) APTT (25.1-36.5) SECONDS Sodium 138 (135-145) mmol/L Potassium 3.8 (3.5-5.1) mmol/L Chloride 102 (98-107) mmol/L Carbon Dioxide 23 (22-30) mmol/L Anion Gap 16.7 H (5-15) MEQ/L BUN 31 H (9-20) mg/dL Creatinine 1.28 H (0.66-1.25) mg/dL Estimated GFR 60.6 ML/MIN Glucose 123 H (74-106) mg/dL POC Glucometer (74 to 106) mg/dL Lactic Acid (0.4-2.0) Calcium 10.5 H (8.4-10.2) mg/dL Total Bilirubin 1.10 (0.2-1.3) mg/dL AST 38 (17-59) U/L ALT 37 (0-50) U/L Alkaline Phosphatase 82 (38-126) U/L Serum Total Protein 8.1 (6.3-8.2) g/dL Albumin 4.6 (3.5-5.0) g/dL 01/25/24 01/25/24 01/25/24 Range/Units 14:20 14:40 16:19 WBC (4.23-9.07) x10^3/uL RBC (4.63-6.08) x10^6/uL Hgb (13.7-17.5) g/dL Hct (40.1-51.0) % MCV (79.0-92.2) fL MCH (25.7-32.2) pg MCHC (32.3-36.5) g/dL RDW (11.6-14.4) % Plt Count (163-337) x10^3/uL MPV (9.4-12.4) fL Gran % (34.0-67.9) % Immature Gran % (Auto) (0.001-0.429) % Nucleat RBC Rel Count (0.00-0.2) % Eos # (Auto) (0.04-0.54) x10^3/uL Immature Gran # (Auto) (0.001-0.031) x10^3u/L Absolute Lymphs (auto) (1.32-3.57) x10^3/uL Absolute Monos (auto) (0.30-0.82) x10^3/uL Absolute Nucleated RBC (0.00-0.012) x10^3u/L Lymphocytes % (21.8-53.1) % Monocytes % (5.3-12.2) % Eosinophils % (0.8-7.0) % Basophils % (0.2-1.2) % Absolute Granulocytes (1.78-5.38) x10^3/uL Basophils # (0.01-0.08) x10^3/uL ESR (0-15) mm/hr PT 11.6 (9.4-12.5) SECONDS INR 1.07 (0.8-3.0) APTT 28.4 (25.1-36.5) SECONDS Sodium (135-145) mmol/L Potassium (3.5-5.1) mmol/L Chloride (98-107) mmol/L Carbon Dioxide (22-30) mmol/L Anion Gap (5-15) MEQ/L BUN (9-20) mg/dL Creatinine (0.66-1.25) mg/dL Estimated GFR ML/MIN Glucose (74-106) mg/dL POC Glucometer 108 H (74 to 106) mg/dL Lactic Acid 1.6 (0.4-2.0) Calcium (8.4-10.2) mg/dL Total Bilirubin (0.2-1.3) mg/dL AST (17-59) U/L ALT (0-50) U/L Alkaline Phosphatase (38-126) U/L Serum Total Protein (6.3-8.2) g/dL Albumin (3.5-5.0) g/dL Accuchecks Date 01/25/24 Time 16:21 - Radiology Impressions Radiology Exams & Impressions: Radiology Procedures Category Date Time Status CHEST 1 VIEW (PORTABLE) Routine Exams 01/25/24 13:59 Completed MRI LOW EXT JOINT W/O CONTRAST [MRI] Stat Exams 01/26/24 08:00 Ordered Assessment/Plan (1) Peripheral vascular disease due to secondary diabetes mellitus Current Visit: Yes Status: Acute Assessment & Plan: Patient examination and evaluation Direct admission to medicine PICC placement tomorrow. blood cultures anticipated Start Vancomycin/Zosyn once placed. WBCs elevated to ~14 trend Patient with severe peripheral vascular disease JOSLYN's measured to be .56 and monophasic pulses Will plan for source control at this time with likely open transmetatarsal amputation with plans for delayed closure of wound at a later date. Patient will need urgent follow up with his vascular specialist following discharge for intervention CTA with abdominal runoff following procedure NPO at midnight Consent for surgical intervention. Code(s): E13.51 - OTH DIABETES W DIABETIC PERIPHERAL ANGIOPATHY W/O GANGRENE (2) Sprain of left foot Current Visit: No Status: Acute Code(s): S93.602A - UNSPECIFIED SPRAIN OF LEFT FOOT, INITIAL ENCOUNTER (3) Cellulitis of foot Current Visit: No Status: Acute Code(s): L03.119 - CELLULITIS OF UNSPECIFIED PART OF LIMB (4) Diabetic wet gangrene of the foot Current Visit: Yes Status: Acute Code(s): E11.52 - TYPE 2 DIABETES W DIABETIC PERIPHERAL ANGIOPATHY W GANGRENE (5) CAD (coronary artery disease) Current Visit: Yes Status: Acute Code(s): I25.10 - ATHSCL HEART DISEASE OF [place] CORONARY ARTERY W/O ANG PCTRS
[2024-01-25] MEDS: Tricor 145 MG PO SCH (21:31)
[2024-01-25] MEDS: ZOCOR 20MG PO SCH (21:31)
[2024-01-25] MEDS: HUMALOG SQ PRN (21:31)
[2024-01-25] MEDS: Flomax 0.4 MG PO SCH (21:31)
[2024-01-25] MEDS: PIPERACILLIN/TAZOBACTAM 4.5 GM in Sodium Chloride 100ML MINI-BAG PLUS 100 ML IV SCH (21:36)
[2024-01-25] MEDS ORDERED: NON-FORMULARY ITEM (Atorvastatin Calcium [Atorvastatin Calcium] 80 MG Tablet) PO SCH (22:00)
[2024-01-25] MEDS ORDERED: NON-FORMULARY ITEM (Fenofibrate [Fenofibrate] 160 MG Tablet) PO SCH (22:00)
[2024-01-25] MEDS: VANCOMYCIN 1 GRAM/200 ML BAG 1 GM/200 ML PIGGYBACK IV SCH (22:05)
[2024-01-26 00:54] LABS: Appearance Clear (Clear); Bacteria None Seen /HPF (None Seen); Bilirubin Negative (Negative); Blood Negative (Negative); Epithelial Cells None Seen /HPF (None Seen); Glucose, Urine >=1000 mg/dL (Negative); Hyaline Casts NONE SEEN /LPF (0-2); Ketones Negative (Negative); Leukocyte Esterase Negative (Negative); Nitrite Negative (Negative); Protein,Urine Dip Negative (Negative); RBC 0-2 /HPF (0-5); Specific Gravity >=1.030 (1.005-1.030); WBC 0-2 /HPF (0-5)
[2024-01-26 01:02] LABS: ADD URINE CULTURE? NO (NO)
--- NOTE | 2024-01-26 05:09 | PCM.NOTE ---
Date and Time: 01/26/24 0504 Subjective Assessment: is a 68 year old male with a pmhx CAD, HTN, DM, right foot amputation, and CKD with direct admit for arterial ulcer with wet gangrene to the left foot. Patient reports that symptoms started approximately 6 months-1year ago with failed OP treatments. He voices no complaints at this time but does reports constant pain to the affected left foot. He describes the pain as aching/sharp/moderate. Denies trauma. Plan per podiatry is for MRI LLE/ IV abx with vanc/zosyn, dressing changes, and source control with likely open transmetatarsal amputation with plans for delayed closure of wound at a later date. Patient will need urgent follow up with his vascular specialist following discharge for intervention CTA with abdominal runoff following procedure 01/26/24: Met with patient bedside. Endorses continued LLE pain 8/ this morning. Was unable to tolerate MRI. Plan for surgical intervention today with podiatry. Denies fever,cough, sob, cp, abdominal pain, STRONG, dizziness, N/V/D. - Review of Systems Constitutional: No Symptoms Eyes: No Symptoms Ears, Nose, & Throat: No Symptoms Respiratory: No Symptoms Cardiac: No Symptoms Abdominal/Gastrointestinal: No Symptoms Genitourinary Symptoms: No Symptoms Musculoskeletal: Other (LLE/ foot pain) Skin: Skin Lesions, Other (see wound assessment/pics in chart) Neurological: No Symptoms Psychological: No Symptoms Endocrine: No Symptoms Hematologic/Lymphatic: No Symptoms Immunological/Allergic: No Symptoms Objective Exam General Appearance: no apparent distress Neurologic Exam: alert, oriented x 3, cooperative Skin Exam: other (LLE wrapped see wound assessment) Wound Assessment: Skin/Wound Assessment Wound/Incision Assessment Start: 01/25/24 17:18 Text: Status: Active Freq: Q6H Protocol: Document 01/26/24 02:00 AK (Rec: 01/26/24 02:29 AK [id number]) Wound/Incision Assessment Left 5th Toe Wound Assessment Shift Assessment Wound Type Scab Wound Stage Non Pressure Wound Dressing Status Dry & Intact Length (cm) (cm) 0.6 Width (cm) (cm) 1.1 Comment bulky dressing CDI - FÉLIX wound - remains true Left 3rd Toe Wound Assessment Shift Assessment Wound Type Scab Wound Stage Non Pressure Wound Length (cm) (cm) 0.5 Width (cm) (cm) 0.6 Comment bulky dressing CDI - FÉLIX wound - remains true Left 2nd Toe Wound Assessment Shift Assessment Wound Type arterial ulcer Wound Stage Non Pressure Wound Dressing Status Dry & Intact Length (cm) (cm) 1.7 Width (cm) (cm) 1.2 Comment bulky dressing CDI - FÉLIX wound - remains true Left 1st Toe Wound Assessment Shift Assessment Wound Type Ulcer Wound Stage Non Pressure Wound Dressing Status Dry & Intact Length (cm) (cm) 0.6 Width (cm) (cm) 0.6 Comment bulky dressing CDI - FÉLIX wound - remains true Left Medial Foot Wound Assessment Shift Assessment Wound Type Ulcer Wound Stage Non Pressure Wound Dressing Status Dry & Intact Length (cm) (cm) 1.5 Width (cm) (cm) 1.8 Comment bulky dresing CDI - FÉLIX wound - remains true Eye Exam: PERRL Ears, Nose, Throat Exam: normal ENT inspection Neck Exam: normal inspection Respiratory Exam: normal breath sounds, lungs clear Cardiovascular Exam: regular rate/rhythm, normal heart sounds Gastrointestinal/Abdomen Exam: soft, normal bowel sounds Extremity Exam: amputations Back Exam: normal inspection Male Genitalia Exam: deferred Rectal Exam: deferred Objective Data Vital Signs: Vital Signs - 24 hr Temp Pulse Resp BP Pulse Ox 01/26/24 03:52 97.8 F 104 H 20 144/65 95 01/26/24 00:00 97.7 F 108 H 20 163/71 96 01/25/24 19:51 97.3 F 94 H 19 125/71 94 L 01/25/24 15:44 98.0 F 102 H 16 141/63 95 01/25/24 13:41 97.9 F 113 H 16 132/67 93 L 01/25/24 13:26 97.9 F 113 H 16 132/67 93 L Pain Assessment - Last Documented Pain Intensity 0 Pain Scale Used 0-10 Pain Scale Intake and Output: Intake & Output 01/23/24 01/24/24 01/25/24 01/26/24 11:59 11:59 11:59 11:59 Intake Total 700 Output Total 1700 Balance -1000 Weight 109.2 kg Lab Results: Lab Results-Last 24 Hours 01/25/24 01/25/24 01/25/24 Range/Units 14:20 14:20 14:20 WBC 14.1 H (4.23-9.07) x10^3/uL RBC 4.45 L (4.63-6.08) x10^6/uL Hgb 12.2 L (13.7-17.5) g/dL Hct 37.5 L (40.1-51.0) % MCV 84.3 (79.0-92.2) fL MCH 27.4 (25.7-32.2) pg MCHC 32.5 (32.3-36.5) g/dL RDW 14.2 (11.6-14.4) % Plt Count 265 (163-337) x10^3/uL MPV 8.9 L (9.4-12.4) fL Gran % 81.8 H (34.0-67.9) % Immature Gran % (Auto) 0.5 H (0.001-0.429) % Nucleat RBC Rel Count 0.0 (0.00-0.2) % Eos # (Auto) 0.02 L (0.04-0.54) x10^3/uL Immature Gran # (Auto) 0.07 H (0.001-0.031) x10^3u/L Absolute Lymphs (auto) 1.39 (1.32-3.57) x10^3/uL Absolute Monos (auto) 1.03 H (0.30-0.82) x10^3/uL Absolute Nucleated RBC 0.00 (0.00-0.012) x10^3u/L Lymphocytes % 9.9 L (21.8-53.1) % Monocytes % 7.3 (5.3-12.2) % Eosinophils % 0.1 L (0.8-7.0) % Basophils % 0.4 (0.2-1.2) % Absolute Granulocytes 11.53 H (1.78-5.38) x10^3/uL Basophils # 0.06 (0.01-0.08) x10^3/uL ESR 82 H (0-15) mm/hr PT (9.4-12.5) SECONDS INR (0.8-3.0) APTT (25.1-36.5) SECONDS Sodium 138 (135-145) mmol/L Potassium 3.8 (3.5-5.1) mmol/L Chloride 102 (98-107) mmol/L Carbon Dioxide 23 (22-30) mmol/L Anion Gap 16.7 H (5-15) MEQ/L BUN 31 H (9-20) mg/dL Creatinine 1.28 H (0.66-1.25) mg/dL Estimated GFR 60.6 ML/MIN Glucose 123 H (74-106) mg/dL POC Glucometer (74 to 106) mg/dL Lactic Acid (0.4-2.0) Calcium 10.5 H (8.4-10.2) mg/dL Total Bilirubin 1.10 (0.2-1.3) mg/dL AST 38 (17-59) U/L ALT 37 (0-50) U/L Alkaline Phosphatase 82 (38-126) U/L Serum Total Protein 8.1 (6.3-8.2) g/dL Albumin 4.6 (3.5-5.0) g/dL Urine Color (Yellow) Urine Appearance (Clear) Urine pH (4.6-8.0) Ur Specific [place] (1.005-1.030) Urine Protein (Negative) Urine Glucose (UA) (Negative) mg/dL Urine Ketones (Negative) Urine Blood (Negative) Urine Nitrite (Negative) Urine Bilirubin (Negative) Urine Urobilinogen (0.2) mg/dL Ur Leukocyte Esterase (Negative) U Hyaline Cast (Auto) (0-2) /LPF Urine Microscopic RBC (0-5) /HPF Urine Microscopic WBC (0-5) /HPF Ur Epithelial Cells (None Seen) /HPF Urine Bacteria (None Seen) /HPF Urine Culture Reflexed (NO) 01/25/24 01/25/24 01/25/24 Range/Units 14:20 14:40 16:19 WBC (4.23-9.07) x10^3/uL RBC (4.63-6.08) x10^6/uL Hgb (13.7-17.5) g/dL Hct (40.1-51.0) % MCV (79.0-92.2) fL MCH (25.7-32.2) pg MCHC (32.3-36.5) g/dL RDW (11.6-14.4) % Plt Count (163-337) x10^3/uL MPV (9.4-12.4) fL Gran % (34.0-67.9) % Immature Gran % (Auto) (0.001-0.429) % Nucleat RBC Rel Count (0.00-0.2) % Eos # (Auto) (0.04-0.54) x10^3/uL Immature Gran # (Auto) (0.001-0.031) x10^3u/L Absolute Lymphs (auto) (1.32-3.57) x10^3/uL Absolute Monos (auto) (0.30-0.82) x10^3/uL Absolute Nucleated RBC (0.00-0.012) x10^3u/L Lymphocytes % (21.8-53.1) % Monocytes % (5.3-12.2) % Eosinophils % (0.8-7.0) % Basophils % (0.2-1.2) % Absolute Granulocytes (1.78-5.38) x10^3/uL Basophils # (0.01-0.08) x10^3/uL ESR (0-15) mm/hr PT 11.6 (9.4-12.5) SECONDS INR 1.07 (0.8-3.0) APTT 28.4 (25.1-36.5) SECONDS Sodium (135-145) mmol/L Potassium (3.5-5.1) mmol/L Chloride (98-107) mmol/L Carbon Dioxide (22-30) mmol/L Anion Gap (5-15) MEQ/L BUN (9-20) mg/dL Creatinine (0.66-1.25) mg/dL Estimated GFR ML/MIN Glucose (74-106) mg/dL POC Glucometer 108 H (74 to 106) mg/dL Lactic Acid 1.6 (0.4-2.0) Calcium (8.4-10.2) mg/dL Total Bilirubin (0.2-1.3) mg/dL AST (17-59) U/L ALT (0-50) U/L Alkaline Phosphatase (38-126) U/L Serum Total Protein (6.3-8.2) g/dL Albumin (3.5-5.0) g/dL Urine Color (Yellow) Urine Appearance (Clear) Urine pH (4.6-8.0) Ur Specific [place] (1.005-1.030) Urine Protein (Negative) Urine Glucose (UA) (Negative) mg/dL Urine Ketones (Negative) Urine Blood (Negative) Urine Nitrite (Negative) Urine Bilirubin (Negative) Urine Urobilinogen (0.2) mg/dL Ur Leukocyte Esterase (Negative) U Hyaline Cast (Auto) (0-2) /LPF Urine Microscopic RBC (0-5) /HPF Urine Microscopic WBC (0-5) /HPF Ur Epithelial Cells (None Seen) /HPF Urine Bacteria (None Seen) /HPF Urine Culture Reflexed (NO) 01/25/24 01/26/24 Range/Units 20:56 00:30 WBC (4.23-9.07) x10^3/uL RBC (4.63-6.08) x10^6/uL Hgb (13.7-17.5) g/dL Hct (40.1-51.0) % MCV (79.0-92.2) fL MCH (25.7-32.2) pg MCHC (32.3-36.5) g/dL RDW (11.6-14.4) % Plt Count (163-337) x10^3/uL MPV (9.4-12.4) fL Gran % (34.0-67.9) % Immature Gran % (Auto) (0.001-0.429) % Nucleat RBC Rel Count (0.00-0.2) % Eos # (Auto) (0.04-0.54) x10^3/uL Immature Gran # (Auto) (0.001-0.031) x10^3u/L Absolute Lymphs (auto) (1.32-3.57) x10^3/uL Absolute Monos (auto) (0.30-0.82) x10^3/uL Absolute Nucleated RBC (0.00-0.012) x10^3u/L Lymphocytes % (21.8-53.1) % Monocytes % (5.3-12.2) % Eosinophils % (0.8-7.0) % Basophils % (0.2-1.2) % Absolute Granulocytes (1.78-5.38) x10^3/uL Basophils # (0.01-0.08) x10^3/uL ESR (0-15) mm/hr PT (9.4-12.5) SECONDS INR (0.8-3.0) APTT (25.1-36.5) SECONDS Sodium (135-145) mmol/L Potassium (3.5-5.1) mmol/L Chloride (98-107) mmol/L Carbon Dioxide (22-30) mmol/L Anion Gap (5-15) MEQ/L BUN (9-20) mg/dL Creatinine (0.66-1.25) mg/dL Estimated GFR ML/MIN Glucose (74-106) mg/dL POC Glucometer 199 H (74 to 106) mg/dL Lactic Acid (0.4-2.0) Calcium (8.4-10.2) mg/dL Total Bilirubin (0.2-1.3) mg/dL AST (17-59) U/L ALT (0-50) U/L Alkaline Phosphatase (38-126) U/L Serum Total Protein (6.3-8.2) g/dL Albumin (3.5-5.0) g/dL Urine Color Yellow (Yellow) Urine Appearance Clear (Clear) Urine pH 5.0 (4.6-8.0) Ur Specific [place] >=1.030 A (1.005-1.030) Urine Protein Negative (Negative) Urine Glucose (UA) >=1000 A (Negative) mg/dL Urine Ketones Negative (Negative) Urine Blood Negative (Negative) Urine Nitrite Negative (Negative) Urine Bilirubin Negative (Negative) Urine Urobilinogen 1.0 A (0.2) mg/dL Ur Leukocyte Esterase Negative (Negative) U Hyaline Cast (Auto) NONE SEEN (0-2) /LPF Urine Microscopic RBC 0-2 (0-5) /HPF Urine Microscopic WBC 0-2 (0-5) /HPF Ur Epithelial Cells None Seen (None Seen) /HPF Urine Bacteria None Seen (None Seen) /HPF Urine Culture Reflexed NO (NO) Radiology Exams: Radiology Procedures Category Date Time Status CHEST 1 VIEW (PORTABLE) Routine Exams 01/25/24 13:59 Completed CHEST 1 VIEW (PORTABLE) Stat Exams 01/25/24 18:38 Taken MRI LOW EXT JOINT W/O CONTRAST [MRI] Stat Exams 01/26/24 08:00 Ordered Assessment/Plan (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 No new/acute bony, articular, or soft tissue abnormalities. -Arterial US showing Stable mild/moderate scattered arteriosclerotic disease throughout left leg as detailed. -severe peripheral vascular disease JOSLYN's measured to be .56 and monophasic pulses -MRI LLE pending -ativan 30 mins prior -cmp, cbc, pt, CXR 01/25: -Podiatry note reviewed, agree with plan for source control at this time with likely open transmetatarsal amputation with plans for delayed closure of wound at a later date. -urgent follow up with his vascular specialist following discharge for intervention CTA with abdominal runoff following procedure -Unable to obtain MRI Code(s): E11.52 - TYPE 2 DIABETES W DIABETIC PERIPHERAL ANGIOPATHY W GANGRENE (2) CAD (coronary artery disease) Current Visit: Yes Status: Acute Assessment & Plan: -noted, patient reports three bypass surgeries -continue home meds Code(s): I25.10 - ATHSCL HEART DISEASE OF [place] CORONARY ARTERY W/O ANG PCTRS (3) Type 2 diabetes mellitus Current Visit: Yes Status: Acute Assessment & Plan: -SSI -ADA diet -A1c 7.19 (4) HTN (hypertension) Current Visit: Yes Status: Acute Code(s): I10 - ESSENTIAL (PRIMARY) HYPERTENSION (5) Chronic renal disease Current Visit: Yes Status: Acute Assessment & Plan: -baseline creat at 1.3 - WNL today -follows with Dr. Jeffrey -Monitor renal/lytes daily -Avoid nephrotoxic meds VTE: hold for surgery PPI: protonix Dispo 3-5 days Code(s): E11.52 - TYPE 2 DIABETES W DIABETIC PERIPHERAL ANGIOPATHY W GANGRENE (2) CAD (coronary artery disease) Current Visit: Yes Status: Acute Code(s): I25.10 - ATHSCL HEART DISEASE OF [place] CORONARY ARTERY W/O ANG PCTRS (3) Type 2 diabetes mellitus Current Visit: Yes Status: Acute (4) HTN (hypertension) Current Visit: Yes Status: Acute Code(s): I10 - ESSENTIAL (PRIMARY) HYPERTENSION (5) Chronic renal disease Current Visit: Yes Status: Acute Code(s): N18.9 - CHRONIC KIDNEY DISEASE, UNSPECIFIED
[2024-01-26 06:17] LABS: Absolute Neutrophil Ct (ANC) 9.13 x10^3/uL (1.78-5.38); BASOPHIL % 0.4 % (0.2-1.2); Basophil (Absolute #) 0.05 x10^3/uL (0.01-0.08); Eosinophil % 0.5 % (0.8-7.0); Eosinophil (Absolute #) 0.06 x10^3/uL (0.04-0.54); Hematocrit 35.4 % (40.1-51.0); Hemoglobin 11.5 g/dL (13.7-17.5); IMMATURE GRAN # 0.04 x10^3u/L (0.001-0.031); IMMATURE GRAN % 0.4 % (0.001-0.429); Lymphocyte (Absolute #) 1.22 x10^3/uL (1.32-3.57); Lymphocytes % 10.7 % (21.8-53.1); Mean Cell Volume 85.7 fL (79.0-92.2); Mean Corpuscular Hemoglobin 27.8 pg (25.7-32.2); Mean Corpuscular Hgb Concent. 32.5 g/dL (32.3-36.5); Monocyte (Absolute #) 0.92 x10^3/uL (0.30-0.82); Monocytes % 8.1 % (5.3-12.2); Neutrophil % 79.9 % (34.0-67.9); Platelet Count 154 x10^3/uL (163-337); Red Blood Count 4.13 x10^6/uL (4.63-6.08); Red Cell Distribution Width 14.3 % (11.6-14.4); White Blood Count 11.4 x10^3/uL (4.23-9.07)
[2024-01-26 06:21] LABS: ALBUMIN 3.5 g/dL (3.5-5.0); ANION GAP 14.4 MEQ/L (5-15); Calcium 9.3 mg/dL (8.4-10.2); Creatinine 1 0.97 mg/dL (0.66-1.25); EST GLOMERULAR FILTRATION RATE 84.5 ML/MIN; Total Protein 6.1 g/dL (6.3-8.2)
[2024-01-26 06:27] LABS: Potassium 4.6 mmol/L (3.5-5.1)
[2024-01-26] MEDS: Ativan 2 MG/1 ML VIAL IV ONE (07:18)
[2024-01-26] MEDS: HUMALOG SQ SCH (07:31)
--- NOTE | 2024-01-26 08:41 | XRAY ---
Indication: PICC line placement. Comparison: Taken earlier in the day. Portable chest demonstrates new left arm PICC line with tip projecting over atriocaval junction. Remaining heart and lungs unremarkable again with incidental right base calcified granuloma and CABG.
[2024-01-26] MEDS: Imdur 60MG PO SCH (08:57)
[2024-01-26] MEDS: Protonix 40MG Tablet PO SCH (08:57)
[2024-01-26] MEDS: Zestril 10 MG PO SCH (08:57)
[2024-01-26] MEDS: Toprol-Xl 25MG Tablets PO SCH (08:57)
[2024-01-26] MEDS ORDERED: NON-FORMULARY ITEM (Duloxetine Hcl [Duloxetine Hcl] 60 MG Capsule.Dr) PO SCH (10:00)
[2024-01-26] MEDS: Lactated Ringers 1,000 ML IV SCH (10:23)
[2024-01-26] MEDS ORDERED: DIPRIVAN 200 MG/20 ML IV ONE (10:42)
[2024-01-26] MEDS ORDERED: SUBLIMAZE 100 MCG/2 ML ONE (10:42)
[2024-01-26] MEDS ORDERED: Xylocaine 1% Vial 30 ML PF IJ ONE (10:59)
[2024-01-26] MEDS ORDERED: Sensorcaine 0.25% 10 ML ONE (10:59)
[2024-01-26] MEDS ORDERED: VANCOCIN INJECTION IV ONE (10:59)
[2024-01-26] MEDS ORDERED: Marcaine Mpf 0.5% Vial 30 Ml ONE (10:59)
[2024-01-26] MEDS ORDERED: LOPRESSOR INJECTION IV ONE (11:16)
--- NOTE | 2024-01-26 11:51 | XRAY ---
Indication: Left foot transmetatarsal amputation. Intraoperative fluoroscopy provided for 1 second. Single digital spot image submitted for interpretation demonstrates amputation all mid to distal metatarsals and all phalanges. Correlate with intraoperative findings/report.
[2024-01-26] MEDS ORDERED: PHENYLEPHRINE HCL ONE (12:00)
--- NOTE | 2024-01-26 13:12 | XRAY ---
One second of fluoroscopy was used in surgery for a left foot transmetatarsal amputation.
--- NOTE | 2024-01-27 05:05 | PCM.NOTE ---
Date and Time: 01/27/24 0504 Subjective Assessment: is a 68 year old male with a pmhx CAD, HTN, DM, right foot amputation, and CKD with direct admit for arterial ulcer with wet gangrene to the left foot. Patient reports that symptoms started approximately 6 months-1year ago with failed OP treatments. He voices no complaints at this time but does reports constant pain to the affected left foot. He describes the pain as aching/sharp/moderate. Denies trauma. Plan per podiatry is for MRI LLE/ IV abx with vanc/zosyn, dressing changes, and source control with likely open transmetatarsal amputation with plans for delayed closure of wound at a later date. Patient will need urgent follow up with his vascular specialist following discharge for intervention CTA with abdominal runoff following procedure 01/26/24: Met with patient bedside. Endorses continued LLE pain 8/10 this morning. Was unable to tolerate MRI. Plan for surgical intervention today with podiatry. Denies fever,cough, sob, cp, abdominal pain, STRONG, dizziness, N/V/D. 01/26: No overnight events noted. S/P transmetatarsal amputation PODS#1. Patient endorsing 7/10 sharp/aching pain. Cultures showing enterobacter clocae complex and raulotella kleb ornithinolytica - both which are sensitive to levaquin. Discussed case with podiatry. Will start levaquin. PT to evaluate patient today, will most likely need placement for rehab. DC vanc/zosyn. - Review of Systems Constitutional: No Symptoms Eyes: No Symptoms Ears, Nose, & Throat: No Symptoms Respiratory: No Symptoms Cardiac: No Symptoms Abdominal/Gastrointestinal: No Symptoms Genitourinary Symptoms: No Symptoms Musculoskeletal: Other (Left foot pain ) Skin: Other (transmetatarsal amputation to the left foot covered in surgical dressing) Neurological: No Symptoms Psychological: No Symptoms Endocrine: No Symptoms Hematologic/Lymphatic: No Symptoms Immunological/Allergic: No Symptoms Objective Exam General Appearance: no apparent distress Neurologic Exam: alert, oriented x 3, cooperative Skin Exam: other (see wound assessment) Wound Assessment: Skin/Wound Assessment Wound/Incision Assessment Start: 01/25/24 17:18 Text: Status: Active Freq: Q6H Protocol: Document 01/27/24 02:00 MP (Rec: 01/27/24 02:49 MP [id number]) Wound/Incision Assessment Left Ankle Wound Assessment Shift Assessment Wound Type Incision Wound Stage Non Pressure Wound Dressing Status Dry & Intact Drainage Amount None Drainage Odor None/Absent Comment TRANSMETATARSAL AMPUTATION POST OP DESSING INTACT PER DR ZAMBRANO, ORDERS TO NOT ALTER DRESSING, MAY REINFORCE IF NEEDED Wound Photo Photo Taken No Date: 01/25/24 Time: 14:00 Comment: PRE SURGERY PICS IN CHART, Eye Exam: PERRL Ears, Nose, Throat Exam: normal ENT inspection Neck Exam: normal inspection Respiratory Exam: normal breath sounds, lungs clear Cardiovascular Exam: regular rate/rhythm, normal heart sounds Gastrointestinal/Abdomen Exam: soft, normal bowel sounds Extremity Exam: amputations (BLE), other (transmetatarsal amputation to the left foot covered in surgical dressing) Back Exam: normal inspection Male Genitalia Exam: deferred Rectal Exam: deferred Objective Data Vital Signs: Vital Signs - 24 hr Temp Pulse Resp BP BP Pulse Ox 01/27/24 04:00 97.8 F 91 H 19 120/55 94 L 01/27/24 00:00 97.7 F 85 19 115/54 97 01/26/24 19:50 97.7 F 85 19 98/53 98 01/26/24 16:58 97.1 F 73 19 100/55 96 01/26/24 14:52 97.2 F 86 18 99/54 96 01/26/24 14:22 97.2 F 86 18 99/54 96 01/26/24 13:52 96.8 F 87 18 107/60 95 01/26/24 13:37 97.2 F 91 H 19 124/58 96 01/26/24 13:22 97 F 89 20 119/55 96 01/26/24 10:24 100 H 18 139/70 01/26/24 07:18 100 H 18 139/70 01/26/24 06:58 96.0 F 100 H 17 139/70 94 L Pain Assessment - Last Documented Pain Intensity 4 Pain Scale Used 0-10 Pain Scale Intake and Output: Intake & Output 01/24/24 01/25/24 01/26/24 01/27/24 11:59 11:59 11:59 11:59 Intake Total 1091 2685 Output Total 2100 25 Balance -1009 2660 Weight 109 kg Lab Results: Lab Results-Last 24 Hours 01/25/24 01/26/24 01/26/24 Range/Units 14:20 04:45 04:45 WBC 11.4 H (4.23-9.07) x10^3/uL RBC 4.13 L (4.63-6.08) x10^6/uL Hgb 11.5 L (13.7-17.5) g/dL Hct 35.4 L (40.1-51.0) % MCV 85.7 (79.0-92.2) fL MCH 27.8 (25.7-32.2) pg MCHC 32.5 (32.3-36.5) g/dL RDW 14.3 (11.6-14.4) % Plt Count 154 L D (163-337) x10^3/uL MPV 10.0 (9.4-12.4) fL Gran % 79.9 H (34.0-67.9) % Immature Gran % (Auto) 0.4 (0.001-0.429) % Nucleat RBC Rel Count 0.0 (0.00-0.2) % Eos # (Auto) 0.06 (0.04-0.54) x10^3/uL Immature Gran # (Auto) 0.04 H (0.001-0.031) x10^3u/L Absolute Lymphs (auto) 1.22 L (1.32-3.57) x10^3/uL Absolute Monos (auto) 0.92 H (0.30-0.82) x10^3/uL Absolute Nucleated RBC 0.00 (0.00-0.012) x10^3u/L Lymphocytes % 10.7 L (21.8-53.1) % Monocytes % 8.1 (5.3-12.2) % Eosinophils % 0.5 L (0.8-7.0) % Basophils % 0.4 (0.2-1.2) % Absolute Granulocytes 9.13 H (1.78-5.38) x10^3/uL Basophils # 0.05 (0.01-0.08) x10^3/uL Sodium 134 L (135-145) mmol/L Potassium 4.6 D (3.5-5.1) mmol/L Chloride 103 (98-107) mmol/L Carbon Dioxide 20 L (22-30) mmol/L Anion Gap 14.4 (5-15) MEQ/L BUN 24 H (9-20) mg/dL Creatinine 0.97 (0.66-1.25) mg/dL Estimated GFR 84.5 ML/MIN Glucose 181 H (74-106) mg/dL POC Glucometer (74 to 106) mg/dL Hemoglobin A1c (4.5-6.0) % Calcium 9.3 (8.4-10.2) mg/dL Total Bilirubin 1.00 (0.2-1.3) mg/dL AST 79 H (17-59) U/L ALT 44 (0-50) U/L Alkaline Phosphatase 108 (38-126) U/L C-Reactive Prot, Quant 260 H (0-10) mg/L Serum Total Protein 6.1 L (6.3-8.2) g/dL Albumin 3.5 (3.5-5.0) g/dL 01/26/24 01/26/24 01/26/24 Range/Units 04:45 06:47 12:26 WBC (4.23-9.07) x10^3/uL RBC (4.63-6.08) x10^6/uL Hgb (13.7-17.5) g/dL Hct (40.1-51.0) % MCV (79.0-92.2) fL MCH (25.7-32.2) pg MCHC (32.3-36.5) g/dL RDW (11.6-14.4) % Plt Count (163-337) x10^3/uL MPV (9.4-12.4) fL Gran % (34.0-67.9) % Immature Gran % (Auto) (0.001-0.429) % Nucleat RBC Rel Count (0.00-0.2) % Eos # (Auto) (0.04-0.54) x10^3/uL Immature Gran # (Auto) (0.001-0.031) x10^3u/L Absolute Lymphs (auto) (1.32-3.57) x10^3/uL Absolute Monos (auto) (0.30-0.82) x10^3/uL Absolute Nucleated RBC (0.00-0.012) x10^3u/L Lymphocytes % (21.8-53.1) % Monocytes % (5.3-12.2) % Eosinophils % (0.8-7.0) % Basophils % (0.2-1.2) % Absolute Granulocytes (1.78-5.38) x10^3/uL Basophils # (0.01-0.08) x10^3/uL Sodium (135-145) mmol/L Potassium (3.5-5.1) mmol/L Chloride (98-107) mmol/L Carbon Dioxide (22-30) mmol/L Anion Gap (5-15) MEQ/L BUN (9-20) mg/dL Creatinine (0.66-1.25) mg/dL Estimated GFR ML/MIN Glucose (74-106) mg/dL POC Glucometer 188 H 181 H (74 to 106) mg/dL Hemoglobin A1c 7.09 H (4.5-6.0) % Calcium (8.4-10.2) mg/dL Total Bilirubin (0.2-1.3) mg/dL AST (17-59) U/L ALT (0-50) U/L Alkaline Phosphatase (38-126) U/L C-Reactive Prot, Quant (0-10) mg/L Serum Total Protein (6.3-8.2) g/dL Albumin (3.5-5.0) g/dL 01/26/24 01/26/24 01/26/24 Range/Units 13:31 16:48 21:08 WBC (4.23-9.07) x10^3/uL RBC (4.63-6.08) x10^6/uL Hgb (13.7-17.5) g/dL Hct (40.1-51.0) % MCV (79.0-92.2) fL MCH (25.7-32.2) pg MCHC (32.3-36.5) g/dL RDW (11.6-14.4) % Plt Count (163-337) x10^3/uL MPV (9.4-12.4) fL Gran % (34.0-67.9) % Immature Gran % (Auto) (0.001-0.429) % Nucleat RBC Rel Count (0.00-0.2) % Eos # (Auto) (0.04-0.54) x10^3/uL Immature Gran # (Auto) (0.001-0.031) x10^3u/L Absolute Lymphs (auto) (1.32-3.57) x10^3/uL Absolute Monos (auto) (0.30-0.82) x10^3/uL Absolute Nucleated RBC (0.00-0.012) x10^3u/L Lymphocytes % (21.8-53.1) % Monocytes % (5.3-12.2) % Eosinophils % (0.8-7.0) % Basophils % (0.2-1.2) % Absolute Granulocytes (1.78-5.38) x10^3/uL Basophils # (0.01-0.08) x10^3/uL Sodium (135-145) mmol/L Potassium (3.5-5.1) mmol/L Chloride (98-107) mmol/L Carbon Dioxide (22-30) mmol/L Anion Gap (5-15) MEQ/L BUN (9-20) mg/dL Creatinine (0.66-1.25) mg/dL Estimated GFR ML/MIN Glucose (74-106) mg/dL POC Glucometer 193 H 204 H 181 H (74 to 106) mg/dL Hemoglobin A1c (4.5-6.0) % Calcium (8.4-10.2) mg/dL Total Bilirubin (0.2-1.3) mg/dL AST (17-59) U/L ALT (0-50) U/L Alkaline Phosphatase (38-126) U/L C-Reactive Prot, Quant (0-10) mg/L Serum Total Protein (6.3-8.2) g/dL Albumin (3.5-5.0) g/dL Radiology Exams: Radiology Procedures Category Date Time Status CHEST 1 VIEW (PORTABLE) Routine Exams 01/25/24 13:59 Completed CHEST 1 VIEW (PORTABLE) Stat Exams 01/25/24 18:38 Completed FLUOROSCOPY UP TO 1 HR Routine Exams 01/26/24 11:06 Completed FOOT (MINIMUM 3 VIEWS) Routine Exams 01/26/24 11:06 Completed Multi-Disciplinary Progress Notes: Multi-Disciplinary Progress Notes 01/26/24 19:40 Physical Therapy Note by Marie(L#[id number]),Nevin WILL EVAL FOR P.T. ON 01/27/24. Initialized on 01/26/24 19:40 - END OF NOTE Assessment/Plan (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 No new/acute bony, articular, or soft tissue abnormalities. -Arterial US showing Stable mild/moderate scattered arteriosclerotic disease throughout left leg as detailed. -severe peripheral vascular disease JOSLYN's measured to be .56 and monophasic pulses -MRI LLE pending -ativan 30 mins prior -cmp, cbc, pt, CXR 01/25: -Podiatry note reviewed, agree with plan for source control at this time with likely open transmetatarsal amputation with plans for delayed closure of wound at a later date. -urgent follow up with his vascular specialist following discharge for intervention CTA with abdominal runoff following procedure -Unable to obtain MRI 01/26: -Cultures showing enterobacter clocae complex and raulotella kleb ornithinolytica - both which are sensitive to levaquin. Discussed case with podiatry. Will start levaquin. -Antimicrobal history: -Vanc/Zosyn 01/25/24-01/27/24 -Levaquin 01/27/24 -PT to evaluate patient today, will most likely need placement for rehab. DC vanc/zosyn. -Podiatry to reach out to vascular regarding patient Code(s): E11.52 - TYPE 2 DIABETES W DIABETIC PERIPHERAL ANGIOPATHY W GANGRENE (2) CAD (coronary artery disease) Current Visit: Yes Status: Acute Assessment & Plan: -noted, patient reports three bypass surgeries -continue home meds Code(s): I25.10 - ATHSCL HEART DISEASE OF [place] CORONARY ARTERY W/O ANG PCTRS (3) Type 2 diabetes mellitus Current Visit: Yes Status: Acute Assessment & Plan: -SSI -ADA diet -A1c 7.19 (4) HTN (hypertension) Current Visit: Yes Status: Acute Code(s): I10 - ESSENTIAL (PRIMARY) HYPERTENSION (5) Chronic renal disease Current Visit: Yes Status: Acute Assessment & Plan: -baseline creat at 1.3 - WNL today -follows with Dr. Jeffrey -Monitor renal/lytes daily -Avoid nephrotoxic meds VTE: hold for surgery PPI: protonix Dispo 3-5 days Code(s): E11.52 - TYPE 2 DIABETES W DIABETIC PERIPHERAL ANGIOPATHY W GANGRENE Code(s): E11.52 - TYPE 2 DIABETES W DIABETIC PERIPHERAL ANGIOPATHY W GANGRENE (2) CAD (coronary artery disease) Current Visit: Yes Status: Acute Code(s): I25.10 - ATHSCL HEART DISEASE OF [place] CORONARY ARTERY W/O [place]AV[place] PCTRS (3) Type 2 diabetes mellitus Current Visit: Yes Status: Acute (4) HTN (hypertension) Current Visit: Yes Status: Acute Code(s): I10 - ESSENTIAL (PRIMARY) HYPERTENSION (5) Chronic renal disease Current Visit: Yes Status: Acute Code(s): N18.9 - CHRONIC KIDNEY DISEASE, UNSPECIFIED
[2024-01-27 05:24] LABS: Absolute Neutrophil Ct (ANC) 7.52 x10^3/uL (1.78-5.38); BASOPHIL % 0.5 % (0.2-1.2); Basophil (Absolute #) 0.05 x10^3/uL (0.01-0.08); Eosinophil % 1.5 % (0.8-7.0); Eosinophil (Absolute #) 0.14 x10^3/uL (0.04-0.54); Hematocrit 31.7 % (40.1-51.0); Hemoglobin 10.2 g/dL (13.7-17.5); IMMATURE GRAN # 0.03 x10^3u/L (0.001-0.031); IMMATURE GRAN % 0.3 % (0.001-0.429); Lymphocyte (Absolute #) 1.05 x10^3/uL (1.32-3.57); Mean Cell Volume 84.8 fL (79.0-92.2); Mean Corpuscular Hemoglobin 27.3 pg (25.7-32.2); Mean Corpuscular Hgb Concent. 32.2 g/dL (32.3-36.5); Mean Platelet Volume 9.5 fL (9.4-12.4); Monocyte (Absolute #) 0.76 x10^3/uL (0.30-0.82); Neutrophil % 78.7 % (34.0-67.9); Platelet Count 242 x10^3/uL (163-337); Red Blood Count 3.74 x10^6/uL (4.63-6.08); Red Cell Distribution Width 14.1 % (11.6-14.4); White Blood Count 9.6 x10^3/uL (4.23-9.07)
[2024-01-27 05:27] LABS: ALBUMIN 3.5 g/dL (3.5-5.0); ANION GAP 12.4 MEQ/L (5-15); BILIRUBIN,TOTAL 0.6 mg/dL (0.2-1.3); Calcium 8.9 mg/dL (8.4-10.2); Creatinine 1 1.22 mg/dL (0.66-1.25); EST GLOMERULAR FILTRATION RATE 64.2 ML/MIN; Potassium 4.1 mmol/L (3.5-5.1); Total Protein 6.1 g/dL (6.3-8.2)
[2024-01-27] MEDS: ENOXAPARIN SODIUM SQ SCH (08:14)
[2024-01-27] MEDS: NORCO 10-325 MG PO PRN (17:17)
[2024-01-27] MEDS: TYLENOL 325 MG PO PRN (21:30)
[2024-01-28 05:48] LABS: Absolute Neutrophil Ct (ANC) 7.12 x10^3/uL (1.78-5.38); BASOPHIL % 0.4 % (0.2-1.2); Basophil (Absolute #) 0.04 x10^3/uL (0.01-0.08); Eosinophil % 1.6 % (0.8-7.0); Eosinophil (Absolute #) 0.15 x10^3/uL (0.04-0.54); Hemoglobin 10.1 g/dL (13.7-17.5); IMMATURE GRAN # 0.03 x10^3u/L (0.001-0.031); IMMATURE GRAN % 0.3 % (0.001-0.429); Lymphocyte (Absolute #) 1.26 x10^3/uL (1.32-3.57); Lymphocytes % 13.5 % (21.8-53.1); Mean Cell Volume 83.8 fL (79.0-92.2); Mean Corpuscular Hemoglobin 27.3 pg (25.7-32.2); Mean Corpuscular Hgb Concent. 32.6 g/dL (32.3-36.5); Mean Platelet Volume 9.2 fL (9.4-12.4); Monocyte (Absolute #) 0.73 x10^3/uL (0.30-0.82); Monocytes % 7.8 % (5.3-12.2); Neutrophil % 76.4 % (34.0-67.9); Platelet Count 237 x10^3/uL (163-337); Red Cell Distribution Width 14.1 % (11.6-14.4); White Blood Count 9.3 x10^3/uL (4.23-9.07)
[2024-01-28 05:57] LABS: ALBUMIN 3.5 g/dL (3.5-5.0); ANION GAP 10.8 MEQ/L (5-15); BILIRUBIN,TOTAL 0.5 mg/dL (0.2-1.3); Calcium 9.2 mg/dL (8.4-10.2); Creatinine 1 0.9 mg/dL (0.66-1.25); EST GLOMERULAR FILTRATION RATE 92.5 ML/MIN; Total Protein 6.3 g/dL (6.3-8.2)
[2024-01-28] MEDS: HUMALOG SQ SCH (08:44)
--- NOTE | 2024-01-28 10:44 | PCM.NOTE ---
Date and Time: 01/28/24 1039 Subjective Assessment: is a 68 year old male with a pmhx CAD, HTN, DM, right foot amputation, and CKD with direct admit for arterial ulcer with wet gangrene to the left foot. Patient reports that symptoms started approximately 6 months-1year ago with failed OP treatments. He voices no complaints at this time but does reports constant pain to the affected left foot. He describes the pain as aching/sharp/moderate. Denies trauma. Plan per podiatry is for MRI LLE/ IV abx with vanc/zosyn, dressing changes, and source control with likely open transmetatarsal amputation with plans for delayed closure of wound at a later date. Patient will need urgent follow up with his vascular specialist following discharge for intervention CTA with abdominal runoff following procedure 01/26/24: Met with patient bedside. Endorses continued LLE pain 8/10 this morning. Was unable to tolerate MRI. Plan for surgical intervention today with podiatry. Denies fever,cough, sob, cp, abdominal pain, STRONG, dizziness, N/V/D. 01/26: No overnight events noted. S/P transmetatarsal amputation PODS#1. Patient endorsing 7/10 sharp/aching pain. Cultures showing enterobacter clocae complex and raulotella kleb ornithinolytica - both which are sensitive to levaquin. Discussed case with podiatry. Will start levaquin. PT to evaluate patient today, will most likely need placement for rehab. DC vanc/zosyn. 01/28/24: Pain much improved today. S/P transmetatarsal amputation PODS#2. Plan for transfer to [facility] for vascular intervention. Dr. Sammy You accepting - bed pending. Continue levofloxacin for now. - Review of Systems Constitutional: No Symptoms Eyes: No Symptoms Ears, Nose, & Throat: No Symptoms Respiratory: No Symptoms Cardiac: No Symptoms Abdominal/Gastrointestinal: No Symptoms Genitourinary Symptoms: No Symptoms Musculoskeletal: Joint Pain (Left foot) Skin: Other (surgical wound to Left foot s/p transmetatarsal amputation-covered ) Neurological: No Symptoms Psychological: No Symptoms Endocrine: No Symptoms Hematologic/Lymphatic: No Symptoms Immunological/Allergic: No Symptoms Objective Exam General Appearance: no apparent distress Neurologic Exam: alert, oriented x 3, cooperative Skin Exam: normal color, other (surgical wound to Left foot s/p transmetatarsal amputation-covered) Wound Assessment: Skin/Wound Assessment Wound/Incision Assessment Start: 01/25/24 17:18 Text: Status: Active Freq: Q6H Protocol: Document 01/28/24 08:00 AR (Rec: 01/28/24 08:55 AR [id number]) Wound/Incision Assessment Left Ankle Wound Assessment Shift Assessment Wound Type Incision Wound Stage Non Pressure Wound Dressing Status Dry & Intact Comment cdi Wound Photo Photo Taken No Date: 01/25/24 Time: 14:00 Comment: PRE SURGERY PICS IN CHART, Eye Exam: PERRL Ears, Nose, Throat Exam: normal ENT inspection Neck Exam: normal inspection Respiratory Exam: normal breath sounds, lungs clear Cardiovascular Exam: regular rate/rhythm, normal heart sounds Gastrointestinal/Abdomen Exam: soft, normal bowel sounds Extremity Exam: amputations, other (see wound assessment) Back Exam: normal inspection Male Genitalia Exam: deferred Rectal Exam: deferred Objective Data Vital Signs: Vital Signs - 24 hr Temp Pulse Resp BP Pulse Ox 01/28/24 08:00 97.8 F 96 H 18 145/68 98 01/28/24 04:00 96.2 F 90 16 133/67 98 01/28/24 00:00 87 16 95 01/27/24 20:00 96.1 F 83 16 128/60 97 01/27/24 16:00 97.2 F 90 19 122/58 97 01/27/24 11:26 96.1 F 91 H 19 124/58 97 Pain Assessment - Last Documented Pain Intensity 2 Pain Scale Used 0-10 Pain Scale Intake and Output: Intake & Output 01/25/24 01/26/24 01/27/24 01/28/24 11:59 11:59 11:59 11:59 Intake Total 1091 3105 2360 Output Total 2100 525 1600 Balance -1009 2580 760 Weight 109 kg 111.8 kg 111.1 kg Lab Results: Lab Results-Last 24 Hours 01/27/24 01/27/24 01/27/24 Range/Units 11:13 16:21 21:17 WBC (4.23-9.07) x10^3/uL RBC (4.63-6.08) x10^6/uL Hgb (13.7-17.5) g/dL Hct (40.1-51.0) % MCV (79.0-92.2) fL MCH (25.7-32.2) pg MCHC (32.3-36.5) g/dL RDW (11.6-14.4) % Plt Count (163-337) x10^3/uL MPV (9.4-12.4) fL Gran % (34.0-67.9) % Immature Gran % (Auto) (0.001-0.429) % Nucleat RBC Rel Count (0.00-0.2) % Eos # (Auto) (0.04-0.54) x10^3/uL Immature Gran # (Auto) (0.001-0.031) x10^3u/L Absolute Lymphs (auto) (1.32-3.57) x10^3/uL Absolute Monos (auto) (0.30-0.82) x10^3/uL Absolute Nucleated RBC (0.00-0.012) x10^3u/L Lymphocytes % (21.8-53.1) % Monocytes % (5.3-12.2) % Eosinophils % (0.8-7.0) % Basophils % (0.2-1.2) % Absolute Granulocytes (1.78-5.38) x10^3/uL Basophils # (0.01-0.08) x10^3/uL Sodium (135-145) mmol/L Potassium (3.5-5.1) mmol/L Chloride (98-107) mmol/L Carbon Dioxide (22-30) mmol/L Anion Gap (5-15) MEQ/L BUN (9-20) mg/dL Creatinine (0.66-1.25) mg/dL Estimated GFR ML/MIN Glucose (74-106) mg/dL POC Glucometer 241 H 164 H 211 H (74 to 106) mg/dL Calcium (8.4-10.2) mg/dL Total Bilirubin (0.2-1.3) mg/dL AST (17-59) U/L ALT (0-50) U/L Alkaline Phosphatase (38-126) U/L Serum Total Protein (6.3-8.2) g/dL Albumin (3.5-5.0) g/dL 01/28/24 01/28/24 01/28/24 Range/Units 05:35 05:35 06:55 WBC 9.3 H (4.23-9.07) x10^3/uL RBC 3.70 L (4.63-6.08) x10^6/uL Hgb 10.1 L (13.7-17.5) g/dL Hct 31.0 L (40.1-51.0) % MCV 83.8 (79.0-92.2) fL MCH 27.3 (25.7-32.2) pg MCHC 32.6 (32.3-36.5) g/dL RDW 14.1 (11.6-14.4) % Plt Count 237 (163-337) x10^3/uL MPV 9.2 L (9.4-12.4) fL Gran % 76.4 H (34.0-67.9) % Immature Gran % (Auto) 0.3 (0.001-0.429) % Nucleat RBC Rel Count 0.0 (0.00-0.2) % Eos # (Auto) 0.15 (0.04-0.54) x10^3/uL Immature Gran # (Auto) 0.03 (0.001-0.031) x10^3u/L Absolute Lymphs (auto) 1.26 L (1.32-3.57) x10^3/uL Absolute Monos (auto) 0.73 (0.30-0.82) x10^3/uL Absolute Nucleated RBC 0.00 (0.00-0.012) x10^3u/L Lymphocytes % 13.5 L (21.8-53.1) % Monocytes % 7.8 (5.3-12.2) % Eosinophils % 1.6 (0.8-7.0) % Basophils % 0.4 (0.2-1.2) % Absolute Granulocytes 7.12 H (1.78-5.38) x10^3/uL Basophils # 0.04 (0.01-0.08) x10^3/uL Sodium 137 (135-145) mmol/L Potassium 4.0 (3.5-5.1) mmol/L Chloride 105 (98-107) mmol/L Carbon Dioxide 25 (22-30) mmol/L Anion Gap 10.8 (5-15) MEQ/L BUN 16 (9-20) mg/dL Creatinine 0.90 (0.66-1.25) mg/dL Estimated GFR 92.5 ML/MIN Glucose 229 H (74-106) mg/dL POC Glucometer 237 H (74 to 106) mg/dL Calcium 9.2 (8.4-10.2) mg/dL Total Bilirubin 0.50 (0.2-1.3) mg/dL AST 65 H (17-59) U/L ALT 73 H (0-50) U/L Alkaline Phosphatase 113 (38-126) U/L Serum Total Protein 6.3 (6.3-8.2) g/dL Albumin 3.5 (3.5-5.0) g/dL Radiology Exams: Radiology Procedures Category Date Time Status FLUOROSCOPY UP TO 1 HR Routine Exams 01/26/24 11:06 Completed FOOT (MINIMUM 3 VIEWS) Routine Exams 01/26/24 11:06 Completed Multi-Disciplinary Progress Notes: Multi-Disciplinary Progress Notes 01/27/24 12:56 Case Management Note by Natalie Parikh PATIENT WISHES TO GO TO REHAB AT [facility], REFERRAL WITH [facility] FAXED TO THEM WITH ANTICIPATED DC DATE OF 01/29 Initialized on 01/27/24 12:56 - END OF NOTE Assessment/Plan (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 No new/acute bony, articular, or soft tissue abnormalities. -Arterial US showing Stable mild/moderate scattered arteriosclerotic disease throughout left leg as detailed. -severe peripheral vascular disease JOSLYN's measured to be .56 and monophasic pulses -MRI LLE pending -ativan 30 mins prior -cmp, cbc, pt, CXR 01/25: -Podiatry note reviewed, agree with plan for source control at this time with likely open transmetatarsal amputation with plans for delayed closure of wound at a later date. -urgent follow up with his vascular specialist following discharge for intervention CTA with abdominal runoff following procedure -Unable to obtain MRI 01/26: -Cultures showing enterobacter clocae complex and raulotella kleb ornithinolytica - both which are sensitive to levaquin. Discussed case with podiatry. Will start levaquin. -Antimicrobal history: -Vanc/Zosyn 01/25/24-01/27/24 -Levaquin 01/27/24 -PT to evaluate patient today, will most likely need placement for rehab. DC vanc/zosyn. -Podiatry to reach out to vascular regarding patient 01/27: -Patient to transfer for vascular intervention - Dr. Elias You accepting at [facility] - may be Tuesday before bed is available -continue pain control/levaquin Code(s): E11.52 - TYPE 2 DIABETES W DIABETIC PERIPHERAL ANGIOPATHY W GANGRENE (2) CAD (coronary artery disease) Current Visit: Yes Status: Acute Assessment & Plan: -noted, patient reports three bypass surgeries -continue home meds Code(s): I25.10 - ATHSCL HEART DISEASE OF [place] CORONARY ARTERY W/O ANG PCTRS (3) Type 2 diabetes mellitus Current Visit: Yes Status: Acute Assessment & Plan: -SSI -ADA diet -A1c 7.19 -Blood glucose levels elevated, will add meal time insulin - monitor (4) HTN (hypertension) Current Visit: Yes Status: Acute Code(s): I10 - ESSENTIAL (PRIMARY) HYPERTENSION (5) Chronic renal disease Current Visit: Yes Status: Acute Assessment & Plan: -baseline creat at 1.3 - WNL today -follows with Dr. Jeffrey -Monitor renal/lytes daily -Avoid nephrotoxic meds VTE: hold for surgery PPI: protonix Dispo 3-5 days Code(s): E11.52 - TYPE 2 DIABETES W DIABETIC PERIPHERAL ANGIOPATHY W GANGRENE (2) CAD (coronary artery disease) Current Visit: Yes Status: Acute Code(s): I25.10 - ATHSCL HEART DISEASE OF [place] CORONARY ARTERY W/O ANG PCTRS (3) Type 2 diabetes mellitus Current Visit: Yes Status: Acute (4) HTN (hypertension) Current Visit: Yes Status: Acute Code(s): I10 - ESSENTIAL (PRIMARY) HYPERTENSION (5) Chronic renal disease Current Visit: Yes Status: Acute Code(s): N18.9 - CHRONIC KIDNEY DISEASE, UNSPECIFIED
[2024-01-28] MEDS: LEVOFLOXACIN 750MG/150ML D5W 750 MG/150 ML BAG IV SCH (11:03)
--- NOTE | 2024-01-28 15:07 | PCM.DS ---
Discharge Summary Date of Admission: 01/25/24 13:20 Date of Discharge: 01/28/24 Admitting Physician: LIZETTE HERBERT MD Primary Care Provider: BRIAN STONE Allergies Allergies No Known Drug Allergies Allergy (Verified 01/25/24 13:35) Hospital Summary - Hospital Course Hospital Course: is a 68 year old male with a pmhx CAD, HTN, DM, right foot amputation, and CKD with direct admit for arterial ulcer with wet gangrene to the left foot. Patient reports that symptoms started approximately 6 months-1year ago with failed OP treatments. He voices no complaints at this time but does reports constant pain to the affected left foot. He describes the pain as aching/sharp/moderate. Denies trauma. Plan per podiatry is for MRI LLE/ IV abx with vanc/zosyn, dressing changes, and source control with likely open transmetatarsal amputation with plans for delayed closure of wound at a later date. Patient will need urgent follow up with his vascular specialist following discharge for intervention CTA with abdominal runoff following procedure 01/26/24: Met with patient bedside. Endorses continued LLE pain 8/10 this morning. Was unable to tolerate MRI. Plan for surgical intervention today with podiatry. Denies fever,cough, sob, cp, abdominal pain, STRONG, dizziness, N/V/D. 01/26: No overnight events noted. S/P transmetatarsal amputation PODS#1. Patient endorsing 7/10 sharp/aching pain. Cultures showing enterobacter clocae complex and raulotella kleb ornithinolytica - both which are sensitive to levaquin. Discussed case with podiatry. Will start levaquin. PT to evaluate patient today, will most likely need placement for rehab. DC vanc/zosyn. 01/28/24: Pain much improved today. S/P transmetatarsal amputation PODS#2. Plan for transfer to [facility] for vascular intervention. Dr. Annalee You accepting - bed pending. Continue levofloxacin for now Discharge Note (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 No new/acute bony, articular, or soft tissue abnormalities. -Arterial US showing Stable mild/moderate scattered arteriosclerotic disease throughout left leg as detailed. -severe peripheral vascular disease JOSLYN's measured to be .56 and monophasic pulses -MRI LLE pending -ativan 30 mins prior -cmp, cbc, pt, CXR 01/25: -Podiatry note reviewed, agree with plan for source control at this time with likely open transmetatarsal amputation with plans for delayed closure of wound at a later date. -urgent follow up with his vascular specialist following discharge for intervention CTA with abdominal runoff following procedure -Unable to obtain MRI 01/26: -Cultures showing enterobacter clocae complex and raulotella kleb ornithinolytica - both which are sensitive to levaquin. Discussed case with podiatry. Will start levaquin. -Antimicrobal history: -Vanc/Zosyn 01/25/24-01/27/24 -Levaquin 01/27/24 -PT to evaluate patient today, will most likely need placement for rehab. DC vanc/zosyn. -Podiatry to reach out to vascular regarding patient 01/27: -Patient to transfer for vascular intervention - Dr. Elias You accepting at [facility] - may be Tuesday before bed is available -continue pain control/levaquin Code(s): E11.52 - TYPE 2 DIABETES W DIABETIC PERIPHERAL ANGIOPATHY W [place] (2) CAD (coronary artery disease) Current Visit: Yes Status: Acute Assessment & Plan: -noted, patient reports three bypass surgeries -continue home meds Code(s): I25.10 - ATHSCL HEART DISEASE OF [place] CORONARY ARTERY W/O ANG PCTRS (3) Type 2 diabetes mellitus Current Visit: Yes Status: Acute Assessment & Plan: -SSI -ADA diet -A1c 7.19 -Blood glucose levels elevated, will add meal time insulin - monitor (4) HTN (hypertension) Current Visit: Yes Status: Acute Code(s): I10 - ESSENTIAL (PRIMARY) HYPERTENSION (5) Chronic renal disease Current Visit: Yes Status: Acute Assessment & Plan: -baseline creat at 1.3 - WNL today -follows with Dr. Jeffrey -Monitor renal/lytes daily -Avoid nephrotoxic meds VTE: hold for surgery PPI: protonix Dispo 3-5 days Code(s): E11.52 - TYPE 2 DIABETES W DIABETIC PERIPHERAL ANGIOPATHY W [place] I spent 35 minutes [id number] with the patient on the day of discharge performing discharge exam, discussing hospital stay and discharge instructions with patient and caregivers, preparation of discharge records, prescriptions & referral forms and addressing any questions/concerns the patient had as docume nted above. - Vitals & Intake/Output Vital Signs: Vital Signs Temperature 96.6 F 01/28/24 11:42 Pulse Rate 88 01/28/24 11:42 Respiratory Rate 20 01/28/24 11:42 Blood Pressure 138/84 01/28/24 11:42 O2 Sat by Pulse Oximetry 97 01/28/24 11:42 Intake & Output: Intake & Output 01/26/24 01/27/24 01/28/24 01/29/24 11:59 11:59 11:59 11:59 Intake Total 1091 3105 2360 360 Output Total 2100 525 1600 600 Balance -1009 2580 760 -240 Weight 109 kg 111.8 kg 111.1 kg - Lab Result Diagrams: 01/28/24 05:35 01/28/24 05:35 Lab Results-Last 24 Hrs: Lab Results-Last 24 Hours 01/27/24 01/27/24 01/28/24 Range/Units 16:21 21:17 05:35 WBC 9.3 H (4.23-9.07) x10^3/uL RBC 3.70 L (4.63-6.08) x10^6/uL Hgb 10.1 L (13.7-17.5) g/dL Hct 31.0 L (40.1-51.0) % MCV 83.8 (79.0-92.2) fL MCH 27.3 (25.7-32.2) pg MCHC 32.6 (32.3-36.5) g/dL RDW 14.1 (11.6-14.4) % Plt Count 237 (163-337) x10^3/uL MPV 9.2 L (9.4-12.4) fL Gran % 76.4 H (34.0-67.9) % Immature Gran % (Auto) 0.3 (0.001-0.429) % Nucleat RBC Rel Count 0.0 (0.00-0.2) % Eos # (Auto) 0.15 (0.04-0.54) x10^3/uL Immature Gran # (Auto) 0.03 (0.001-0.031) x10^3u/L Absolute Lymphs (auto) 1.26 L (1.32-3.57) x10^3/uL Absolute Monos (auto) 0.73 (0.30-0.82) x10^3/uL Absolute Nucleated RBC 0.00 (0.00-0.012) x10^3u/L Lymphocytes % 13.5 L (21.8-53.1) % Monocytes % 7.8 (5.3-12.2) % Eosinophils % 1.6 (0.8-7.0) % Basophils % 0.4 (0.2-1.2) % Absolute Granulocytes 7.12 H (1.78-5.38) x10^3/uL Basophils # 0.04 (0.01-0.08) x10^3/uL Sodium (135-145) mmol/L Potassium (3.5-5.1) mmol/L Chloride (98-107) mmol/L Carbon Dioxide (22-30) mmol/L Anion Gap (5-15) MEQ/L BUN (9-20) mg/dL Creatinine (0.66-1.25) mg/dL Estimated GFR ML/MIN Glucose (74-106) mg/dL POC Glucometer 164 H 211 H (74 to 106) mg/dL Calcium (8.4-10.2) mg/dL Total Bilirubin (0.2-1.3) mg/dL AST (17-59) U/L ALT (0-50) U/L Alkaline Phosphatase (38-126) U/L Serum Total Protein (6.3-8.2) g/dL Albumin (3.5-5.0) g/dL 01/28/24 01/28/24 01/28/24 Range/Units 05:35 06:55 11:05 WBC (4.23-9.07) x10^3/uL RBC (4.63-6.08) x10^6/uL Hgb (13.7-17.5) g/dL Hct (40.1-51.0) % MCV (79.0-92.2) fL MCH (25.7-32.2) pg MCHC (32.3-36.5) g/dL RDW (11.6-14.4) % Plt Count (163-337) x10^3/uL MPV (9.4-12.4) fL Gran % (34.0-67.9) % Immature Gran % (Auto) (0.001-0.429) % Nucleat RBC Rel Count (0.00-0.2) % Eos # (Auto) (0.04-0.54) x10^3/uL Immature Gran # (Auto) (0.001-0.031) x10^3u/L Absolute Lymphs (auto) (1.32-3.57) x10^3/uL Absolute Monos (auto) (0.30-0.82) x10^3/uL Absolute Nucleated RBC (0.00-0.012) x10^3u/L Lymphocytes % (21.8-53.1) % Monocytes % (5.3-12.2) % Eosinophils % (0.8-7.0) % Basophils % (0.2-1.2) % Absolute Granulocytes (1.78-5.38) x10^3/uL Basophils # (0.01-0.08) x10^3/uL Sodium 137 (135-145) mmol/L Potassium 4.0 (3.5-5.1) mmol/L Chloride 105 (98-107) mmol/L Carbon Dioxide 25 (22-30) mmol/L Anion Gap 10.8 (5-15) MEQ/L BUN 16 (9-20) mg/dL Creatinine 0.90 (0.66-1.25) mg/dL Estimated GFR 92.5 ML/MIN Glucose 229 H (74-106) mg/dL POC Glucometer 237 H 233 H (74 to 106) mg/dL Calcium 9.2 (8.4-10.2) mg/dL Total Bilirubin 0.50 (0.2-1.3) mg/dL AST 65 H (17-59) U/L ALT 73 H (0-50) U/L Alkaline Phosphatase 113 (38-126) U/L Serum Total Protein 6.3 (6.3-8.2) g/dL Albumin 3.5 (3.5-5.0) g/dL Micro Results-Entire Visit: Microbiology 01/25/24 17:50 Blood Culture - Preliminary Blood 01/25/24 14:20 Blood Culture - Preliminary Blood Accuchecks Date 01/28/24 Date 01/28/24 Date 01/27/24 Date 01/27/24 Time 21:00 Time 16:31 - Procedures and Test Procedures and Tests throughout Hospitalization: Therapy Orders & Screens 01/25/24 16:53 PT Eval & Treat (MD Order) ONCE Reason for Eval:: weakness Diagnosis: Arterial ulcer/wet gangrene 01/26/24 10:50 EKG ONCE Comment: Diagnosis: Arterial ulcer/wet gangrene Discharge Exam General Appearance: no apparent distress Neurologic Exam: alert, oriented x 3, cooperative Eye Exam: PERRL Ears, Nose, Throat Exam: normal ENT inspection Neck Exam: normal inspection Respiratory Exam: normal breath sounds, lungs clear Cardiovascular Exam: regular rate/rhythm, normal heart sounds Gastrointestinal/Abdomen Exam: soft, normal bowel sounds Male Genitalia Exam: deferred Rectal Exam: deferred Back Exam: normal inspection Extremity Exam: amputations, other (surgical wound to Left foot s/p transmetatarsal amputation-covered) Wound Assessment: Skin/Wound Assessment Wound/Incision Assessment Start: 01/25/24 17:18 Text: Status: Active Freq: Q6H Protocol: Document 01/28/24 08:00 AR (Rec: 01/28/24 08:55 AR [id number]) Wound/Incision Assessment Left Ankle Wound Assessment Shift Assessment Wound Type Incision Wound Stage Non Pressure Wound Dressing Status Dry & Intact Comment cdi Wound Photo Photo Taken No Date: 01/25/24 Time: 14:00 Comment: PRE SURGERY PICS IN CHART, Final Diagnosis/Problem List - Final Discharge Diagnosis/Problem (1) Diabetic wet gangrene of the foot Current Visit: Yes Status: Acute Code(s): E11.52 - TYPE 2 DIABETES W DIABETIC PERIPHERAL ANGIOPATHY W [place]GR[place] (2) CAD (coronary artery disease) Current Visit: Yes Status: Acute Code(s): I25.10 - ATHSCL HEART DISEASE OF [place] CORONARY ARTERY W/O ANG PCTRS (3) Type 2 diabetes mellitus Current Visit: Yes Status: Acute (4) HTN (hypertension) Current Visit: Yes Status: Acute Code(s): I10 - ESSENTIAL (PRIMARY) HYPERTENSION (5) Chronic renal disease Current Visit: Yes Status: Acute Code(s): N18.9 - CHRONIC KIDNEY DISEASE, UNSPECIFIED - Discharge Disposition: DC TO [facility] Condition: Stable Prescriptions: New Enoxaparin Sodium [Enoxaparin Sodium] 40 mg SQ DAILY Levofloxacin [Levofloxacin 750Mg/150Ml D5w] 750 mg IV Q24H10 Ondansetron HCl 4 mg/2 ml [Zofran 4 MG/2 ML VIAL] 4 mg IV Q6H PRN PRN PRN Reason: Nausea/Vomiting Continue Insulin Lispro 40 unit SQ UD Insulin Regular, Human [Humulin R U-500 Kwikpen] 0 unit SQ TID Gabapentin [Neurontin ] 300 mg PO TID Fenofibrate 180 mg PO HS PANTOPRAZOLE 40 mg Tablet [Protonix 40MG Tablet] 40 mg PO DAILY Metoprolol Succinate [Toprol Xl] 25 mg PO DAILY Tamsulosin HCl 0.4 mg [Flomax 0.4 MG] 0.4 mg PO HS Atorvastatin Calcium 80 mg PO HS Lisinopril 10 mg [Zestril 10 MG] 10 mg PO DAILY Clopidogrel Bisulfate [Clopidogrel] 75 mg PO DAILY Duloxetine HCl 60 mg PO DAILY Dapagliflozin Propanediol [Farxiga] 10 mg PO DAILY Aspirin 81 gm Chew [Baby Aspirin 81 mg Chew] 81 mg PO DAILY Isosorbide Mononitrate [Isosorbide Mononitrate ER] 60 mg PO DAILY Tirzepatide [Mounjaro] 0 ml SQ WEEKLY Discontinued Doxycycline Hyclate 100 mg [Vibramycin 100 MG] 100 mg PO BID #14 tab Follow up with: JUAN MANUEL HIGH DPM [ACTIVE STAFF] - ANNALEE YOU MD [CONSULTING PHYSICIAN] - Office will call patient BRIAN STONE MD [Primary Care Provider] - 02/06/24 2:00 pm
--- NOTE | 2024-01-29 05:11 | PCM.NOTE ---
Date and Time: 01/29/24 0510 Subjective Assessment: is a 68 year old male with a pmhx CAD, HTN, DM, right foot amputation, and CKD with direct admit for arterial ulcer with wet gangrene to the left foot. Patient reports that symptoms started approximately 6 months-1year ago with failed OP treatments. He voices no complaints at this time but does reports constant pain to the affected left foot. He describes the pain as aching/sharp/moderate. Denies trauma. Plan per podiatry is for MRI LLE/ IV abx with vanc/zosyn, dressing changes, and source control with likely open transmetatarsal amputation with plans for delayed closure of wound at a later date. Patient will need urgent follow up with his vascular specialist following discharge for intervention CTA with abdominal runoff following procedure 01/26/24: Met with patient bedside. Endorses continued LLE pain 8/10 this morning. Was unable to tolerate MRI. Plan for surgical intervention today with podiatry. Denies fever,cough, sob, cp, abdominal pain, STRONG, dizziness, N/V/D. 01/26: No overnight events noted. S/P transmetatarsal amputation PODS#1. Patient endorsing 7/10 sharp/aching pain. Cultures showing enterobacter clocae complex and raulotella kleb ornithinolytica - both which are sensitive to levaquin. Discussed case with podiatry. Will start levaquin. PT to evaluate patient today, will most likely need placement for rehab. DC vanc/zosyn. 01/28/24: Pain much improved today. S/P transmetatarsal amputation PODS#2. Plan for transfer to [place] for vascular intervention. Dr. Sammy You accepting - bed pending. Continue levofloxacin for now Objective Exam Wound Assessment: Skin/Wound Assessment Wound/Incision Assessment Start: 01/25/24 17:18 Text: Status: Active Freq: Q6H Protocol: Document 01/29/24 02:00 MP (Rec: 01/29/24 04:24 MP [id number]) Wound/Incision Assessment Left Ankle Wound Assessment Shift Assessment Wound Type Incision Wound Stage Non Pressure Wound Dressing Status Dry & Intact Comment cdi Wound Photo Photo Taken No Date: 01/25/24 Time: 14:00 Comment: PRE SURGERY PICS IN CHART, Objective Data Vital Signs: Vital Signs - 24 hr Temp Pulse Resp BP Pulse Ox 01/29/24 03:53 97.0 F 86 22 156/68 95 01/28/24 23:58 97.8 F 93 H 24 156/71 96 01/28/24 20:00 97.6 F 94 H 26 H 141/60 95 01/28/24 16:00 97.5 F 93 H 18 135/60 96 01/28/24 11:42 96.6 F 88 20 138/84 97 01/28/24 08:00 97.8 F 96 H 18 145/68 98 Pain Assessment - Last Documented Pain Intensity 4 Pain Scale Used 0-10 Pain Scale Intake and Output: Intake & Output 01/26/24 01/27/24 01/28/24 01/29/24 11:59 11:59 11:59 11:59 Intake Total 1091 3105 2360 1091 Output Total 2100 525 1600 1375 Balance -1009 2580 760 -284 Weight 109 kg 111.8 kg 111.1 kg Lab Results: Lab Results-Last 24 Hours 01/28/24 01/28/24 01/28/24 Range/Units 05:35 05:35 06:55 WBC 9.3 H (4.23-9.07) x10^3/uL RBC 3.70 L (4.63-6.08) x10^6/uL Hgb 10.1 L (13.7-17.5) g/dL Hct 31.0 L (40.1-51.0) % MCV 83.8 (79.0-92.2) fL MCH 27.3 (25.7-32.2) pg MCHC 32.6 (32.3-36.5) g/dL RDW 14.1 (11.6-14.4) % Plt Count 237 (163-337) x10^3/uL MPV 9.2 L (9.4-12.4) fL Gran % 76.4 H (34.0-67.9) % Immature Gran % (Auto) 0.3 (0.001-0.429) % Nucleat RBC Rel Count 0.0 (0.00-0.2) % Eos # (Auto) 0.15 (0.04-0.54) x10^3/uL Immature Gran # (Auto) 0.03 (0.001-0.031) x10^3u/L Absolute Lymphs (auto) 1.26 L (1.32-3.57) x10^3/uL Absolute Monos (auto) 0.73 (0.30-0.82) x10^3/uL Absolute Nucleated RBC 0.00 (0.00-0.012) x10^3u/L Lymphocytes % 13.5 L (21.8-53.1) % Monocytes % 7.8 (5.3-12.2) % Eosinophils % 1.6 (0.8-7.0) % Basophils % 0.4 (0.2-1.2) % Absolute Granulocytes 7.12 H (1.78-5.38) x10^3/uL Basophils # 0.04 (0.01-0.08) x10^3/uL Sodium 137 (135-145) mmol/L Potassium 4.0 (3.5-5.1) mmol/L Chloride 105 (98-107) mmol/L Carbon Dioxide 25 (22-30) mmol/L Anion Gap 10.8 (5-15) MEQ/L BUN 16 (9-20) mg/dL Creatinine 0.90 (0.66-1.25) mg/dL Estimated GFR 92.5 ML/MIN Glucose 229 H (74-106) mg/dL POC Glucometer 237 H (74 to 106) mg/dL Calcium 9.2 (8.4-10.2) mg/dL Total Bilirubin 0.50 (0.2-1.3) mg/dL AST 65 H (17-59) U/L ALT 73 H (0-50) U/L Alkaline Phosphatase 113 (38-126) U/L Serum Total Protein 6.3 (6.3-8.2) g/dL Albumin 3.5 (3.5-5.0) g/dL 01/28/24 01/28/24 01/28/24 Range/Units 11:05 16:58 21:24 WBC (4.23-9.07) x10^3/uL RBC (4.63-6.08) x10^6/uL Hgb (13.7-17.5) g/dL Hct (40.1-51.0) % MCV (79.0-92.2) fL MCH (25.7-32.2) pg MCHC (32.3-36.5) g/dL RDW (11.6-14.4) % Plt Count (163-337) x10^3/uL MPV (9.4-12.4) fL Gran % (34.0-67.9) % Immature Gran % (Auto) (0.001-0.429) % Nucleat RBC Rel Count (0.00-0.2) % Eos # (Auto) (0.04-0.54) x10^3/uL Immature Gran # (Auto) (0.001-0.031) x10^3u/L Absolute Lymphs (auto) (1.32-3.57) x10^3/uL Absolute Monos (auto) (0.30-0.82) x10^3/uL Absolute Nucleated RBC (0.00-0.012) x10^3u/L Lymphocytes % (21.8-53.1) % Monocytes % (5.3-12.2) % Eosinophils % (0.8-7.0) % Basophils % (0.2-1.2) % Absolute Granulocytes (1.78-5.38) x10^3/uL Basophils # (0.01-0.08) x10^3/uL Sodium (135-145) mmol/L Potassium (3.5-5.1) mmol/L Chloride (98-107) mmol/L Carbon Dioxide (22-30) mmol/L Anion Gap (5-15) MEQ/L BUN (9-20) mg/dL Creatinine (0.66-1.25) mg/dL Estimated GFR ML/MIN Glucose (74-106) mg/dL POC Glucometer 233 H 241 H 248 H (74 to 106) mg/dL Calcium (8.4-10.2) mg/dL Total Bilirubin (0.2-1.3) mg/dL AST (17-59) U/L ALT (0-50) U/L Alkaline Phosphatase (38-126) U/L Serum Total Protein (6.3-8.2) g/dL Albumin (3.5-5.0) g/dL Assessment/Plan (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 No new/acute bony, articular, or soft tissue abnormalities. -Arterial US showing Stable mild/moderate scattered arteriosclerotic disease throughout left leg as detailed. -severe peripheral vascular disease JOSLYN's measured to be .56 and monophasic pulses -MRI LLE pending -ativan 30 mins prior -cmp, cbc, pt, CXR 01/25: -Podiatry note reviewed, agree with plan for source control at this time with likely open transmetatarsal amputation with plans for delayed closure of wound at a later date. -urgent follow up with his vascular specialist following discharge for intervention CTA with abdominal runoff following procedure -Unable to obtain MRI 01/26: -Cultures showing enterobacter clocae complex and raulotella kleb ornithinolytica - both which are sensitive to levaquin. Discussed case with podiatry. Will start levaquin. -Antimicrobal history: -Vanc/Zosyn 01/25/24-01/27/24 -Levaquin 01/27/24 -PT to evaluate patient today, will most likely need placement for rehab. DC vanc/zosyn. -Podiatry to reach out to vascular regarding patient 01/27: -Patient to transfer for vascular intervention - Dr. Elias You accepting at [facility] - may be Tuesday before bed is available -continue pain control/levaquin Code(s): E11.52 - TYPE 2 DIABETES W DIABETIC PERIPHERAL ANGIOPATHY W [place] (2) CAD (coronary artery disease) Current Visit: Yes Status: Acute Assessment & Plan: -noted, patient reports three bypass surgeries -continue home meds Code(s): I25.10 - ATHSCL HEART DISEASE OF [place] CORONARY ARTERY W/O ANG PCTRS (3) Type 2 diabetes mellitus Current Visit: Yes Status: Acute Assessment & Plan: -SSI -ADA diet -A1c 7.19 -Blood glucose levels elevated, will add meal time insulin - monitor (4) HTN (hypertension) Current Visit: Yes Status: Acute Code(s): I10 - ESSENTIAL (PRIMARY) HYPERTENSION -stable -continue home meds (5) Chronic renal disease Current Visit: Yes Status: Acute Assessment & Plan: -baseline creat at 1.3 - WNL today -follows with Dr. Jeffrey -Monitor renal/lytes daily -Avoid nephrotoxic meds VTE: hold for surgery PPI: protonix Dispo 3-5 days Code(s): E11.52 - TYPE 2 DIABETES W DIABETIC PERIPHERAL ANGIOPATHY W [place] (2) CAD (coronary artery disease) Current Visit: Yes Status: Acute Code(s): I25.10 - ATHSCL HEART DISEASE OF [place] CORONARY ARTERY W/O ANG PCTRS (3) Type 2 diabetes mellitus Current Visit: Yes Status: Acute (4) HTN (hypertension) Current Visit: Yes Status: Acute Code(s): I10 - ESSENTIAL (PRIMARY) HYPERTENSION (5) Chronic renal disease Current Visit: Yes Status: Acute Code(s): N18.9 - CHRONIC KIDNEY DISEASE, UNSPECIFIED
[2024-01-29 05:36] LABS: Absolute Neutrophil Ct (ANC) 7.56 x10^3/uL (1.78-5.38); BASOPHIL % 0.4 % (0.2-1.2); Basophil (Absolute #) 0.04 x10^3/uL (0.01-0.08); Eosinophil % 1.2 % (0.8-7.0); Eosinophil (Absolute #) 0.12 x10^3/uL (0.04-0.54); Hemoglobin 9.9 g/dL (13.7-17.5); IMMATURE GRAN # 0.08 x10^3u/L (0.001-0.031); IMMATURE GRAN % 0.8 % (0.001-0.429); Lymphocyte (Absolute #) 1.51 x10^3/uL (1.32-3.57); Mean Cell Volume 84.5 fL (79.0-92.2); Mean Corpuscular Hgb Concent. 31.9 g/dL (32.3-36.5); Mean Platelet Volume 8.6 fL (9.4-12.4); Monocyte (Absolute #) 0.78 x10^3/uL (0.30-0.82); Monocytes % 7.7 % (5.3-12.2); Neutrophil % 74.9 % (34.0-67.9); Platelet Count 246 x10^3/uL (163-337); Red Blood Count 3.67 x10^6/uL (4.63-6.08); Red Cell Distribution Width 14.3 % (11.6-14.4); White Blood Count 10.1 x10^3/uL (4.23-9.07)
[2024-01-29 05:52] LABS: ALBUMIN 3.5 g/dL (3.5-5.0); ANION GAP 11.6 MEQ/L (5-15); BILIRUBIN,TOTAL 0.5 mg/dL (0.2-1.3); Calcium 9.4 mg/dL (8.4-10.2); Creatinine 1 1.01 mg/dL (0.66-1.25); EST GLOMERULAR FILTRATION RATE 80.5 ML/MIN; Potassium 4.2 mmol/L (3.5-5.1); Total Protein 6.3 g/dL (6.3-8.2)
--- NOTE | 2024-01-29 07:57 | PCM.DS ---
Discharge Summary Date of Admission: 01/25/24 13:20 Date of Discharge: 01/29/24 Admitting Physician: LIZETTE HERBERT MD Primary Care Provider: BRIAN STONE Allergies Allergies No Known Drug Allergies Allergy (Verified 01/25/24 13:35) Hospital Summary - Hospital Course Hospital Course: is a 68 year old male with a pmhx CAD, HTN, DM, right foot amputation, and CKD with direct admit for arterial ulcer with wet gangrene to the left foot. Patient reports that symptoms started approximately 6 months-1year ago with failed OP treatments. He voices no complaints at this time but does reports constant pain to the affected left foot. He describes the pain as aching/sharp/moderate. Denies trauma. Plan per podiatry is for MRI LLE/ IV abx with vanc/zosyn, dressing changes, and source control with likely open transmetatarsal amputation with plans for delayed closure of wound at a later date. Patient will need urgent follow up with his vascular specialist following discharge for intervention CTA with abdominal runoff following procedure 01/26/24: Met with patient bedside. Endorses continued LLE pain 8/10 this morning. Was unable to tolerate MRI. Plan for surgical intervention today with podiatry. Denies fever,cough, sob, cp, abdominal pain, STRONG, dizziness, N/V/D. 01/26: No overnight events noted. S/P transmetatarsal amputation PODS#1. Patient endorsing 7/10 sharp/aching pain. Cultures showing enterobacter clocae complex and raulotella kleb ornithinolytica - both which are sensitive to levaquin. Discussed case with podiatry. Will start levaquin. PT to evaluate patient today, will most likely need placement for rehab. DC vanc/zosyn. 01/28/24: Pain much improved today. S/P transmetatarsal amputation PODS#2. Plan for transfer to [place] for vascular intervention. Dr. Annalee You accepting - bed pending. Continue levofloxacin for now Discharge Note (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 No new/acute bony, articular, or soft tissue abnormalities. -Arterial US showing Stable mild/moderate scattered arteriosclerotic disease throughout left leg as detailed. -severe peripheral vascular disease JOSLYN's measured to be .56 and monophasic pulses -MRI LLE pending -ativan 30 mins prior -cmp, cbc, pt, CXR 01/25: -Podiatry note reviewed, agree with plan for source control at this time with likely open transmetatarsal amputation with plans for delayed closure of wound at a later date. -urgent follow up with his vascular specialist following discharge for intervention CTA with abdominal runoff following procedure -Unable to obtain MRI 01/26: -Cultures showing enterobacter clocae complex and raulotella kleb ornithinolytica - both which are sensitive to levaquin. Discussed case with podiatry. Will start levaquin. -Antimicrobal history: -Vanc/Zosyn 01/25/24-01/27/24 -Levaquin 01/27/24 -PT to evaluate patient today, will most likely need placement for rehab. DC vanc/zosyn. -Podiatry to reach out to vascular regarding patient 01/27: -Patient to transfer for vascular intervention - Dr. Elias You accepting at [place] - may be Tuesday before bed is available -continue pain control/levaquin Code(s): E11.52 - TYPE 2 DIABETES W DIABETIC PERIPHERAL ANGIOPATHY W GANGRENE (2) CAD (coronary artery disease) Current Visit: Yes Status: Acute Assessment & Plan: -noted, patient reports three bypass surgeries -continue home meds Code(s): I25.10 - ATHSCL HEART DISEASE OF [place] CORONARY ARTERY W/O ANG PCTRS (3) Type 2 diabetes mellitus Current Visit: Yes Status: Acute Assessment & Plan: -SSI -ADA diet -A1c 7.19 -Blood glucose levels elevated, will add meal time insulin - monitor (4) HTN (hypertension) Current Visit: Yes Status: Acute Code(s): I10 - ESSENTIAL (PRIMARY) HYPERTENSION (5) Chronic renal disease Current Visit: Yes Status: Acute Assessment & Plan: -baseline creat at 1.3 - WNL today -follows with Dr. Jeffrey -Monitor renal/lytes daily -Avoid nephrotoxic meds VTE: hold for surgery PPI: protonix Dispo 3-5 days - Vitals & Intake/Output Vital Signs: Vital Signs Temperature 97.0 F 01/29/24 03:53 Pulse Rate 86 01/29/24 03:53 Respiratory Rate 22 01/29/24 03:53 Blood Pressure 156/68 01/29/24 03:53 O2 Sat by Pulse Oximetry 95 01/29/24 03:53 Intake & Output: Intake & Output 01/26/24 01/27/24 01/28/24 01/29/24 11:59 11:59 11:59 11:59 Intake Total 1091 3105 2360 1091 Output Total 2100 525 1600 1375 Balance -1009 5430 760 -284 Weight 109 kg 111.8 kg 111.1 kg - Lab Result Diagrams: 01/29/24 05:36 01/29/24 05:36 Lab Results-Last 24 Hrs: Lab Results-Last 24 Hours 01/28/24 01/28/24 01/28/24 Range/Units 11:05 16:58 21:24 WBC (4.23-9.07) x10^3/uL RBC (4.63-6.08) x10^6/uL Hgb (13.7-17.5) g/dL Hct (40.1-51.0) % MCV (79.0-92.2) fL MCH (25.7-32.2) pg MCHC (32.3-36.5) g/dL RDW (11.6-14.4) % Plt Count (163-337) x10^3/uL MPV (9.4-12.4) fL Gran % (34.0-67.9) % Immature Gran % (Auto) (0.001-0.429) % Nucleat RBC Rel Count (0.00-0.2) % Eos # (Auto) (0.04-0.54) x10^3/uL Immature Gran # (Auto) (0.001-0.031) x10^3u/L Absolute Lymphs (auto) (1.32-3.57) x10^3/uL Absolute Monos (auto) (0.30-0.82) x10^3/uL Absolute Nucleated RBC (0.00-0.012) x10^3u/L Lymphocytes % (21.8-53.1) % Monocytes % (5.3-12.2) % Eosinophils % (0.8-7.0) % Basophils % (0.2-1.2) % Absolute Granulocytes (1.78-5.38) x10^3/uL Basophils # (0.01-0.08) x10^3/uL Sodium (135-145) mmol/L Potassium (3.5-5.1) mmol/L Chloride (98-107) mmol/L Carbon Dioxide (22-30) mmol/L Anion Gap (5-15) MEQ/L BUN (9-20) mg/dL Creatinine (0.66-1.25) mg/dL Estimated GFR ML/MIN Glucose (74-106) mg/dL POC Glucometer 233 H 241 H 248 H (74 to 106) mg/dL Calcium (8.4-10.2) mg/dL Total Bilirubin (0.2-1.3) mg/dL AST (17-59) U/L ALT (0-50) U/L Alkaline Phosphatase (38-126) U/L Serum Total Protein (6.3-8.2) g/dL Albumin (3.5-5.0) g/dL 01/29/24 01/29/24 01/29/24 Range/Units 05:36 05:36 06:53 WBC 10.1 H (4.23-9.07) x10^3/uL RBC 3.67 L (4.63-6.08) x10^6/uL Hgb 9.9 L (13.7-17.5) g/dL Hct 31.0 L (40.1-51.0) % MCV 84.5 (79.0-92.2) fL MCH 27.0 (25.7-32.2) pg MCHC 31.9 L (32.3-36.5) g/dL RDW 14.3 (11.6-14.4) % Plt Count 246 (163-337) x10^3/uL MPV 8.6 L (9.4-12.4) fL Gran % 74.9 H (34.0-67.9) % Immature Gran % (Auto) 0.8 H (0.001-0.429) % Nucleat RBC Rel Count 0.0 (0.00-0.2) % Eos # (Auto) 0.12 (0.04-0.54) x10^3/uL Immature Gran # (Auto) 0.08 H (0.001-0.031) x10^3u/L Absolute Lymphs (auto) 1.51 (1.32-3.57) x10^3/uL Absolute Monos (auto) 0.78 (0.30-0.82) x10^3/uL Absolute Nucleated RBC 0.00 (0.00-0.012) x10^3u/L Lymphocytes % 15.0 L (21.8-53.1) % Monocytes % 7.7 (5.3-12.2) % Eosinophils % 1.2 (0.8-7.0) % Basophils % 0.4 (0.2-1.2) % Absolute Granulocytes 7.56 H (1.78-5.38) x10^3/uL Basophils # 0.04 (0.01-0.08) x10^3/uL Sodium 138 (135-145) mmol/L Potassium 4.2 (3.5-5.1) mmol/L Chloride 103 (98-107) mmol/L Carbon Dioxide 27 (22-30) mmol/L Anion Gap 11.6 (5-15) MEQ/L BUN 16 (9-20) mg/dL Creatinine 1.01 (0.66-1.25) mg/dL Estimated GFR 80.5 ML/MIN Glucose 235 H (74-106) mg/dL POC Glucometer 210 H (74 to 106) mg/dL Calcium 9.4 (8.4-10.2) mg/dL Total Bilirubin 0.50 (0.2-1.3) mg/dL AST 49 (17-59) U/L ALT 67 H (0-50) U/L Alkaline Phosphatase 117 (38-126) U/L Serum Total Protein 6.3 (6.3-8.2) g/dL Albumin 3.5 (3.5-5.0) g/dL Micro Results-Entire Visit: Microbiology 01/25/24 17:50 Blood Culture - Preliminary Blood 01/25/24 14:20 Blood Culture - Preliminary Blood Accuchecks Date 01/28/24 Date 01/28/24 - Procedures and Test Procedures and Tests throughout Hospitalization: Therapy Orders & Screens 01/25/24 16:53 PT Eval & Treat (MD Order) ONCE Reason for Eval:: weakness Diagnosis: Arterial ulcer/wet gangrene 01/26/24 10:50 EKG ONCE Comment: Diagnosis: Arterial ulcer/wet gangrene Discharge Exam General Appearance: no apparent distress Neurologic Exam: alert, oriented x 3, cooperative Eye Exam: PERRL Ears, Nose, Throat Exam: normal ENT inspection Neck Exam: normal inspection Respiratory Exam: normal breath sounds, lungs clear Cardiovascular Exam: regular rate/rhythm, normal heart sounds Gastrointestinal/Abdomen Exam: soft, normal bowel sounds Male Genitalia Exam: deferred Rectal Exam: deferred Back Exam: normal inspection Extremity Exam: amputations, other (LLE s/p transmetatarsal amputation covered in dressing) Skin Exam: other (see wound assessment) Wound Assessment: Skin/Wound Assessment Wound/Incision Assessment Start: 01/25/24 17:18 Text: Status: Active Freq: Q6H Protocol: Document 01/29/24 02:00 MP (Rec: 01/29/24 04:24 MP [id number]) Wound/Incision Assessment Left Ankle Wound Assessment Shift Assessment Wound Type Incision Wound Stage Non Pressure Wound Dressing Status Dry & Intact Comment cdi Wound Photo Photo Taken No Date: 01/25/24 Time: 14:00 Comment: PRE SURGERY PICS IN CHART, Final Diagnosis/Problem List - Final Discharge Diagnosis/Problem (1) Diabetic wet gangrene of the foot Current Visit: Yes Status: Acute Code(s): E11.52 - TYPE 2 DIABETES W MARY BETIC PERIPHERAL ANGIOPATHY W GANGRENE (2) CAD (coronary artery disease) Current Visit: Yes Status: Acute Code(s): I25.10 - ATHSCL HEART DISEASE OF [place] CORONARY ARTERY W/O ANG PCTRS (3) Type 2 diabetes mellitus Current Visit: Yes Status: Acute (4) HTN (hypertension) Current Visit: Yes Status: Acute Code(s): I10 - ESSENTIAL (PRIMARY) H YPERTENSION (5) Chronic renal disease Current Visit: Yes Status: Acute Code(s): N18.9 - CHRONIC KIDNEY DISEASE, UNSPECIFIED - Discharge Disposition: DC TO [facility] Condition: Stable Prescriptions: New Enoxaparin Sodium [Enoxaparin Sodium] 40 mg SQ DAILY Levofloxacin [Levofloxacin 750Mg/150Ml D5w] 750 mg IV Q24H10 Ondansetron HCl 4 mg/2 ml [Zofran 4 MG/2 ML VIAL] 4 mg IV Q6H PRN PRN PRN Reason: Nausea/Vomiting Continue Insulin Lispro 40 unit SQ UD Insulin Regular, Human [Humulin R U-500 Kwikpen] 0 unit SQ TID Gabapentin [Neurontin ] 300 mg PO TID Fenofibrate 180 mg PO HS PANTOPRAZOLE 40 mg Tablet [Protonix 40MG Tablet] 40 mg PO DAILY Metoprolol Succinate [Toprol Xl] 25 mg PO DAILY Tamsulosin HCl 0.4 mg [Flomax 0.4 MG] 0.4 mg PO HS Atorvastatin Calcium 80 mg PO HS Lisinopril 10 mg [Zestril 10 MG] 10 mg PO DAILY Clopidogrel Bisulfate [Clopidogrel] 75 mg PO DAILY Duloxetine HCl 60 mg PO DAILY Dapagliflozin Propanediol [Farxiga] 10 mg PO DAILY Aspirin 81 gm Chew [Baby Aspirin 81 mg Chew] 81 mg PO DAILY Isosorbide Mononitrate [Isosorbide Mononitrate ER] 60 mg PO DAILY Tirzepatide [Mounjaro] 0 ml SQ WEEKLY Discontinued Doxycycline Hyclate 100 mg [Vibramycin 100 MG] 100 mg PO BID #14 tab Follow up with: JUAN MANUEL HIGH DPM [ACTIVE STAFF] - ANNALEE YOU MD [CONSULTING PHYSICIAN] - Office will call patient BRIAN STONE MD [Primary Care Provider] - 02/06/24 2:00 pm
[2024-01-29 07:58] VITALS: BP 169/77; PULSE 87; RESP 18; TEMP 96.9; O2SAT 94
--- NOTE | 2024-01-30 08:39 | OP ---
SURGERY DATE/TIME: 01/26/2024 1624 - 1195 PREOPERATIVE DIAGNOSES: 1) Diabetes mellitus. 2) Diabetic foot infection. 3) Severe peripheral vascular disease. 4) Osteomyelitis. 5) Sepsis. 6) Right lower extremity below-knee amputation. POSTOPERATIVE DIAGNOSES: 1) Diabetes mellitus. 2) Diabetic foot infection. 3) Severe peripheral vascular disease. 4) Osteomyelitis. 5) Sepsis. 6) Right lower extremity below-knee amputation. PROCEDURE: Open transmetatarsal amputation, left foot. SURGEON: Shaheen Jacobsen DPM CONSTITUTIONAL LAW PROFESSOR: None. ANESTHESIA: General. HEMOSTASIS: Pressure dressing. ESTIMATED BLOOD LOSS: Approximately 5 mL. MATERIALS: 2-0 nylon, 1/4-inch Iodoform packing. INJECTABLES: 30 mL of 1:1 mixture of 1% lidocaine plain and 0.5% bupivacaine plain injected in an ankle block-type fashion. INDICATIONS: The patient is a very pleasant 68-year-old male who presented to my service last week. At that time, patient had a longstanding history of complicated issues with a below-knee amputation to the right as a result of complications of diabetes and ulcerations that had started to the left lower extremity. The left lower extremity ulcers were arterial and there were no palpable pulses at that time; therefore, patient was set up for vascular studies to assess. In the short period of time in between visits and possible referral to vascular specialist, an infection took place aggressively. On his presentation to my service 1 week later, he had significant malodor to the wounds as well as purple discoloration to the wounds indicating some form of endotoxin and bacterial infection. From that standpoint, a decision was made for direct admission for IV antibiotics and an attempt at an MRI. Two attempts were made, one with no sedation and one with mild sedation; however, due to patient's severe neuropathy, patient was unable to stay still during the procedure. Clinical discussion was held with the patient and his sister, who at this time decided for aggressive source control and immediate referral to a vascular specialist following the procedure. Patient has been made aware of the risks and complications of this procedure. Unfortunately, given the patient's severe peripheral vascular disease, the infection has already entered his bloodstream and he is mounting an immune response so we do necessitate source control with an amputation at this time. However, there are no guarantees that this is where the procedure and/or amputation stop. There is a higher necessity for an attempt at limb salvage in this patient's case, given he already has a below-knee amputation to the right lower extremity. Patient at this time has been made aware of all risks, complications and benefits. At this time, it is planned to be a staged procedure and from that standpoint, multiple specialities will be working on him in order to save this leg. However, there are no guarantees at the end of this course, and a below-knee amputation may be the inevitable conclusion. Patient understands this risk. He has had plenty of time allowed for questions, which were answered to his apparent satisfaction. No guarantees were provided as to the outcome. It is at this time we decided to proceed. DESCRIPTION OF PROCEDURE AND FINDINGS: Patient was brought into the operating room, placed on the operating room table in the supine position. At this time, general anesthesia was administered until the patient was adequately sedated. At this time, the left lower extremity was prepped and draped in the typical sterile fashion and lowered onto the surgical field. At this time, surgical planning took place, identifying where the fishmouth incision would be planned out, being respective to where the infection is and making sure that the margins are outside of these landmarks. From that standpoint, a 10 blade was taken down to the level of bone following the line of this fishmouth incision circumferentially. Following this, disarticulation of the toes took place and this was handed off the field for pathological and microbiological assessment. At this time, Quiroz and Davis elevator were utilized to elevate the soft tissue in a full-thickness flap to the base of the metatarsals. A total joint saw was then utilized to resect the metatarsals, approximately one-third of the length of the metatarsal, resecting the metatarsals and then once again, handing them off the field for pathological assessment. At this time, attention was directed to the remaining soft tissue where any indications of infection or discolored tissue were resected. It was noted at this time that there was minor bleeding of the plantar medial and plantar lateral arteries; however, none at the dorsalis pedis. In respects to these types of amputations done without tourniquet, the blood flow was extraordinarily minimal. From that standpoint, copious Bactisure was utilized to flush the surgical site, and then 3 L of sterile saline were utilized to flush the remaining soft tissue. An elevation of the intrinsic musculature was performed at this time, making sure that we had enough distance on the musculature for a possible flap if patient was to proceed with the second stage of this procedure, which was adequate at that time. Following this, gloves were changed and all instrumentation was taken off the back table from a clean standpoint. Following this, loose approximation of the edges were carried out utilizing an [id number] stitch or a trauma suture 2-0 nylon, leaving the medial aspect of the wound slightly open for 1/4-inch Iodoform packing. Following this, dressing consisting of Betadine, Adaptic, 4 x 4, Kerlix, ABD and Butch was applied to the patient's left lower extremity. Patient was then reversed from anesthesia and returned to the postoperative anesthesia care unit with vital signs stable and vascular status intact. Patient handled the anesthesia as well as the procedure without significant complication. Postoperative orders as indicated in the patient's discharge chart.
== END 2024-01-29 10:38 | disposition home or self-care (01) | DRG 239 ==
LOC: MED SURG 13:20
PROVIDERS: ADMIT Internal Medicine; ATTEND Internal Medicine
PROC: 0Y6N0Z0 Detachment at Left Foot, Complete, Open Approach (ICD-10-PCS; principal; 2024-01-26)
DX: E11.52 Type 2 diabetes mellitus with diabetic peripheral angiopathy with gangrene (principal); A41.9 Sepsis, unspecified organism; M86.9 Osteomyelitis, unspecified; I25.10 Atherosclerotic heart disease of native coronary artery without angina pectoris; E11.22 Type 2 diabetes mellitus with diabetic chronic kidney disease; I12.9 Hypertensive chronic kidney disease with stage 1 through stage 4 chronic kidney disease, or unspecified chronic kidney disease; N18.9 Chronic kidney disease, unspecified; E11.51 Type 2 diabetes mellitus with diabetic peripheral angiopathy without gangrene; Z89.431 Acquired absence of right foot
CPT/HCPCS: 36415; 36573; 71045; 73630; 76000; 80053; 81001; 82947; 83036; 83605; 85025; 85610; 85652; 85730; 86140; 87040; 93005; 97161; 97530; A6260; Q3014; 28805; J1650; J1817; J1956; J2060; J2371; J2543; J2704; J3010; J3370; A9270-GY

== ENCOUNTER 2024-02-14 05:50 | Day surgery (SDC) | payer MEDICARE ==
[2024-02-14 06:19] VITALS: RESP 16
[2024-02-14 06:20] LABS: Absolute Neutrophil Ct (ANC) 5.56 x10^3/uL (1.78-5.38); BASOPHIL % 0.9 % (0.2-1.2); Basophil (Absolute #) 0.08 x10^3/uL (0.01-0.08); Eosinophil % 1.6 % (0.8-7.0); Eosinophil (Absolute #) 0.14 x10^3/uL (0.04-0.54); Hematocrit 35.9 % (40.1-51.0); Hemoglobin 11.5 g/dL (13.7-17.5); IMMATURE GRAN # 0.04 x10^3u/L (0.001-0.031); IMMATURE GRAN % 0.5 % (0.001-0.429); Lymphocyte (Absolute #) 2.23 x10^3/uL (1.32-3.57); Lymphocytes % 25.5 % (21.8-53.1); Mean Cell Volume 84.1 fL (79.0-92.2); Mean Corpuscular Hemoglobin 26.9 pg (25.7-32.2); Mean Platelet Volume 8.9 fL (9.4-12.4); Monocyte (Absolute #) 0.69 x10^3/uL (0.30-0.82); Monocytes % 7.9 % (5.3-12.2); Neutrophil % 63.6 % (34.0-67.9); Platelet Count 379 x10^3/uL (163-337); Red Blood Count 4.27 x10^6/uL (4.63-6.08); Red Cell Distribution Width 13.9 % (11.6-14.4); White Blood Count 8.7 x10^3/uL (4.23-9.07)
[2024-02-14] MEDS: TYLENOL EXTRA STRENGTH 500 MG PO ONE (06:20)
[2024-02-14] MEDS: Lactated Ringers 1,000 ML IV SCH (06:20)
[2024-02-14] MEDS ORDERED: Marcaine Mpf 0.5% Vial 30 Ml ONE (06:29)
[2024-02-14] MEDS ORDERED: Xylocaine 1% Vial 30 ML PF IJ ONE (06:29)
[2024-02-14] MEDS: CEFAZOLIN 2 GM/100 ML NaCl 2 GM/100 ML IVPB IV SCH (06:31)
[2024-02-14 06:35] LABS: INR 1.09 (0.8-3.0); PROTIME 11.8 SECONDS (9.4-12.5); PTT 29.4 SECONDS (25.1-36.5)
[2024-02-14 06:47] LABS: BILIRUBIN,TOTAL 0.6 mg/dL (0.2-1.3); Calcium 10.1 mg/dL (8.4-10.2); Creatinine 1 1.1 mg/dL (0.66-1.25); EST GLOMERULAR FILTRATION RATE 72.7 ML/MIN; Potassium 4.2 mmol/L (3.5-5.1); Total Protein 7.2 g/dL (6.3-8.2)
[2024-02-14] MEDS ORDERED: SUBLIMAZE 100 MCG/2 ML ONE (07:14)
[2024-02-14] MEDS ORDERED: Zofran 4 MG/2 ML VIAL ONE (07:14)
[2024-02-14] MEDS ORDERED: DIPRIVAN 200 MG/20 ML IV ONE (07:14)
[2024-02-14] MEDS ORDERED: Decadron 4 MG INJ ONE (07:14)
[2024-02-14] MEDS ORDERED: Xylocaine-Mpf 2% 5 Ml Vial ONE (07:14)
[2024-02-14] MEDS ORDERED: Versed 2 MG/2 ML Injection ONE (07:14)
[2024-02-14] MEDS ORDERED: Sodium Chloride 0.9% 1000 ML 1,000 ML ONE (08:23)
[2024-02-14] MEDS ORDERED: PITRESSIN 20 UNITS ONE (09:05)
--- NOTE | 2024-02-14 09:21 | XRAY ---
Indication: Surgery. Partial amputation left foot metatarsals. Intraoperative fluoroscopy was provided for 8 seconds. 3 digital spot images submitted for interpretation demonstrates total amputation of remaining metatarsals. Correlate with intraoperative findings/report.
[2024-02-14 10:35] VITALS: BP 116/59; PULSE 95; TEMP 97.4; O2SAT 95
--- NOTE | 2024-02-14 11:37 | XRAY ---
8 seconds of fluoroscopy was used in surgery for a partial amputation of left foot metatarsals.
--- NOTE | 2024-02-16 10:04 | OP ---
SURGERY DATE/TIME: 02/14/2024 PREOPERATIVE DIAGNOSES: 1) Osteomyelitis, left foot. 2) Status post transmetatarsal amputation, open. 3) Diabetes mellitus, uncontrolled. 4) Diabetic peripheral neuropathy. 5) Peripheral vascular disease (severe). 6) Difficulty with ambulation. 7) Below-knee amputation to the right lower extremity. POSTOPERATIVE DIAGNOSES: 1) Osteomyelitis, left foot. 2) Status post transmetatarsal amputation, open. 3) Diabetes mellitus, uncontrolled. 4) Diabetic peripheral neuropathy. 5) Peripheral vascular disease (severe). 6) Difficulty with ambulation. 7) Below-knee amputation to the right lower extremity. PROCEDURES: 1) Revision transmetatarsal amputation with partial metatarsal excision, left foot. 2) Intrinsic muscle flap, left foot. 3) Delayed primary closure of surgical wound, left foot. SURGEON: Shaheen Jacobsen DPM CABLE TECHNICIAN: None. ANESTHESIA: Monitored anesthesia care with a postoperative block. See injectables for details. HEMOSTASIS: Pressure dressing ESTIMATED BLOOD LOSS: Approximately 10 mL. MATERIALS: 2-0 Vicryl, 3-0 nylon, 2-0 nylon INJECTABLES: 20 mL of a 1:1 mixture of 1% lidocaine plain and 0.5% bupivacaine plain injected in an ankle block-type fashion. INDICATIONS: The patient is a very pleasant 68-year-old male who is well known to my service for peripheral vascular disease and diabetes. The patient presented to my office for the first time 1 week before his index procedure where there was seemingly no infection and only concern for peripheral vascular disease. At that time, the patient was set up for noninvasive vascular studies which demonstrated significant reduction in the blood flow past the level of the knee. The patient was scheduled for consultation with his vascular surgeon, Dr. Sammy You, at [place]. However, during this period of time, he developed an aggressive form of anaerobic infection and presented to my office with the infection. At that time, we decided to proceed with intervention given the patient was unable to sit still for an MRI. There was a positive probe to bone at the aspect of the first metatarsophalangeal joint as well as the second metatarsal. Given this, the best option for function if we were to limb salvage this patient's leg was to proceed with a transmetatarsal amputation. At that time, we went with an open amputation, and he was sent to Dr. You for an urgent revascularization. According to Dr. You's notes and discussion with him, he did have successful intervention resulting in fairly robust posterior tibial artery blood supply to the plantar aspect of the foot as well as to perforating peroneal. The dorsalis pedis does show some indications of blockage. However, 2-blood vessel runoff at this time should be adequate for the patient to heal. At this time, the patient has been made aware of all risks, complications, and benefits of surgical intervention at this time including, but not limited to, infection, hematoma, seroma, possibility of delayed wound healing, non-wound healing, possibility of failure of surgical intervention, possible need for further surgical intervention at a later date, possible loss of limb, and possible loss of life. The patient has been made aware of all of these. He has had plenty of time to ask questions, which were answered to his apparent satisfaction. We have also discussed risks with his sister, Dorothy, and she understands the potential risks and complications as well as the benefits of the procedure. It is at this time we decided to proceed. DESCRIPTION OF PROCEDURE AND FINDINGS: The patient was brought into the operating room and placed on the operating room table in the supine position. At this time, monitored anesthesia care was administered until the patient was adequately sedated. At this time, the left lower extremity was prepped and draped in typical sterile fashion and lowered onto the surgical field. At this time, a time-out was called identifying patient factors and antibiotics and the procedure to be performed. Following this, the procedure commenced. A 10-blade was utilized to remove the sutures from the surgical site revealing the intrinsic muscles. From that standpoint, a 10-blade was utilized to excise any demarcation of the dorsal aspect of the foot where there was approximately 1 to 1.5 cm of demarcation inspected at this time. Following this, inspection of the wound edges where all edges were incised utilizing the 10-blade and adequate blood flow was assessed upon incision. From that standpoint, closure planning was assessed. Decision was made utilizing a total joint saw to resect a further portion of the metatarsals. Once again this was assessed and deemed to be inadequate for closure. From that standpoint, we decided to go ahead and proceed with partial disarticulation of the first metatarsal and a further resection with the total joint saw until minimal tension was experienced over the closure of the site. From that standpoint, copious amounts of sterile saline were utilized to flush the surgical site utilizing Pulsavac. Once this was accomplished, 2-0 Vicryl was utilized to mobilize the intrinsic muscles and sutures to the dorsal aspect of the periosteum of the midfoot. Once secure, this was once again assessed. Edges were incised and checked for healthy bleeding as well as assessing for dog-ears. From that standpoint, 2-0 Vicryl was then utilized to coapt the subcutaneous edges in a simple buried interrupted-type fashion. Following this, a 3-0 nylon was utilized in a horizontal mattress-type fashion which was interposed with a simple interrupted utilizing 2-0 nylon through the remainder of the incision closure. Following this, the foot was cleansed with sterile saline and dried. A dressing consisting of Betadine, Adaptic, 4 x 4, Kerlix, ABD, and 4-inch and 6-inch Butch applied with minimal compression was applied to the lower extremity. Prior to the dressing being placed, a block consisting of 20 mL of a 1:1 mixture of 1% lidocaine plain and 0.5% bupivacaine plain was injected in an ankle block-type fashion, then we put the dressing on. The patient was then reversed from anesthesia and returned to the postoperative anesthesia care unit with vital signs stable and vascular status intact. The patient handled the anesthesia as well as the procedure without significant complication. Postoperative orders as indicated in the patient's discharge chart.
== END 2024-02-14 11:04 | disposition home or self-care (01) ==
LOC: SDC 05:50
PROVIDERS: ATTEND Podiatrist Foot & Ankle Surgery
DX: M86.9 Osteomyelitis, unspecified (principal); E11.65 Type 2 diabetes mellitus with hyperglycemia; E11.42 Type 2 diabetes mellitus with diabetic polyneuropathy; I73.9 Peripheral vascular disease, unspecified; R26.2 Difficulty in walking, not elsewhere classified; Z89.511 Acquired absence of right leg below knee; Z47.81 Encounter for orthopedic aftercare following surgical amputation; Z79.01 Long term (current) use of anticoagulants
CPT/HCPCS: 13160; 15738; 28122; 36415; 73630; 76000; 80053; 82947; 85025; 85610; 85730; 93005; J0690; J1100; J2250; J2405; J2704; J3010; A9270-GY

== ENCOUNTER 2024-03-13 07:18 | Day surgery (SDC) | payer MEDICARE ==
[2024-03-13] MEDS ORDERED: Sodium Chloride 0.9% 1000 ML 1,000 ML ONE (07:48)
[2024-03-13] MEDS ORDERED: CEFAZOLIN 2 GM/100 ML NaCl 2 GM/100 ML IVPB IV ONE (07:48)
[2024-03-13] MEDS: Sodium Chloride 0.9% 1000 ML 1,000 ML IV STA (08:00)
[2024-03-13] MEDS: CEFAZOLIN 2 GM/100 ML NaCl 2 GM/100 ML IVPB IV SCH (08:00)
[2024-03-13 08:30] LABS: Absolute Neutrophil Ct (ANC) 3.98 x10^3/uL (1.78-5.38); BASOPHIL % 0.9 % (0.2-1.2); Basophil (Absolute #) 0.06 x10^3/uL (0.01-0.08); Eosinophil % 2.2 % (0.8-7.0); Eosinophil (Absolute #) 0.14 x10^3/uL (0.04-0.54); Hematocrit 30.2 % (40.1-51.0); Hemoglobin 9.3 g/dL (13.7-17.5); IMMATURE GRAN # 0.06 x10^3u/L (0.001-0.031); IMMATURE GRAN % 0.9 % (0.001-0.429); Lymphocyte (Absolute #) 1.71 x10^3/uL (1.32-3.57); Lymphocytes % 26.7 % (21.8-53.1); Mean Corpuscular Hemoglobin 25.5 pg (25.7-32.2); Mean Corpuscular Hgb Concent. 30.8 g/dL (32.3-36.5); Mean Platelet Volume 8.7 fL (9.4-12.4); Monocyte (Absolute #) 0.46 x10^3/uL (0.30-0.82); Monocytes % 7.2 % (5.3-12.2); Neutrophil % 62.1 % (34.0-67.9); Platelet Count 304 x10^3/uL (163-337); Red Blood Count 3.64 x10^6/uL (4.63-6.08); Red Cell Distribution Width 14.6 % (11.6-14.4); White Blood Count 6.4 x10^3/uL (4.23-9.07)
[2024-03-13 08:34] LABS: ALBUMIN 3.4 g/dL (3.5-5.0); ANION GAP 12.3 MEQ/L (5-15); BILIRUBIN,TOTAL 0.4 mg/dL (0.2-1.3); Calcium 9.8 mg/dL (8.4-10.2); Creatinine 1 0.94 mg/dL (0.66-1.25); EST GLOMERULAR FILTRATION RATE 87.8 ML/MIN; Potassium 4.2 mmol/L (3.5-5.1); Total Protein 6.8 g/dL (6.3-8.2)
[2024-03-13] MEDS ORDERED: Marcaine Mpf 0.5% Vial 30 Ml ONE (08:40)
[2024-03-13] MEDS ORDERED: XYLOCAINE 1% HCL 20 ML MDV ONE (08:41)
[2024-03-13] MEDS ORDERED: SUBLIMAZE 100 MCG/2 ML ONE ×2 (09:47→13:19)
[2024-03-13] MEDS ORDERED: DIPRIVAN 200 MG/20 ML IV ONE (09:47)
[2024-03-13] MEDS ORDERED: Xylocaine-Mpf 2% 5 Ml Vial ONE (09:47)
[2024-03-13] MEDS ORDERED: Versed 2 MG/2 ML Injection ONE (09:47)
[2024-03-13] MEDS ORDERED: Zofran 4 MG/2 ML VIAL ONE (09:47)
[2024-03-13] MEDS ORDERED: Decadron 4 MG INJ ONE (09:47)
[2024-03-13] MEDS ORDERED: PHENYLEPHRINE HCL ONE (10:40)
[2024-03-13] MEDS ORDERED: XYLOCAINE 1%/Epi 1:100000 MDV 20 ML ONE (11:03)
[2024-03-13] MEDS ORDERED: MINERAL OIL LIGHT 10 ML FOR SURGERY ONE (11:03)
[2024-03-13] MEDS ORDERED: Thrombin-JMI 5000 UNITS TP ONE (11:04)
--- NOTE | 2024-03-13 12:41 | XRAY ---
Indication: Revision left foot transmetatarsal amputation. Possible synthetic skin graft, Achilles tendon lengthening, and extensor tendon transfer. Intraoperative fluoroscopy provided for 42 seconds. 8 digital spot images submitted for interpretation ultimately demonstrates total amputation of the remaining metatarsal, cuneiforms, navicular, and cuboid bones. Last images demonstrates orthopedic button lateral to talocalcaneal articulation. Correlate with intraoperative findings/report.
--- NOTE | 2024-03-13 13:33 | XRAY ---
42 seconds of fluoroscopy was used in surgery for a revision left foot transmetatarsal amputation. Possible synthetic skin graft, Achilles tendon lengthening, and extensor tendon transfer.
[2024-03-13 14:47] VITALS: TEMP 96.6; O2SAT 97
[2024-03-13 16:15] VITALS: BP 86/47
[2024-03-13 16:49] VITALS: PULSE 85; RESP 16
--- NOTE | 2024-03-15 11:42 | OP ---
SURGERY DATE/TIME: 03/13/2024 [id number] PREOPERATIVE DIAGNOSES: 1) Osteomyelitis. 2) Peripheral vascular disease. 3) Diabetes mellitus. 4) Diabetic foot ulcer. 5) Below-knee amputation to the right. 6) Difficulty with ambulation. POSTOPERATIVE DIAGNOSES: 1) Osteomyelitis. 2) Peripheral vascular disease. 3) Diabetes mellitus. 4) Diabetic foot ulcer. 5) Below-knee amputation to the right. 6) Difficulty with ambulation. PROCEDURE: 1) Incision and drainage of foot, left. 2) Chopart amputation, left foot. 3) Tibialis anterior tendon transfer to talar neck. 4) Intrinsic muscle flap. 5) Delayed primary closure. 6) Synthetic skin substitute application less than 100 sq cm. 7) Split-thickness skin graft from left thigh to left foot. 8) Tendo-Achilles lengthening of left ankle. SURGEON: Shaheen Jacobsen DPM COLLATERAL CLERK: None. ANESTHESIA: General. HEMOSTASIS: Pressure dressing. ESTIMATED BLOOD LOSS: Approximately 20 mL. MATERIALS: 4-0 Monocryl, 2-0 Vicryl, 3-0 nylon, a 7 x 7.5 Restrata graft, 1000 mL of Bactisure, and a 2.9 ToggleLoc with BroadBand Tape for tibialis anterior tendon transfer. INJECTABLES: 10 mL of 1% lidocaine with epinephrine. INDICATIONS: The patient is a very pleasant 68-year-old male, very well known to my service for extensive peripheral vascular disease as well as osteomyelitis of the left lower extremity. The patient is a good candidate for limb salvage given that he does have a below-knee amputation to the right lower extremity. We are saving as much of the extremity as possible for pivoting and continuing to stay fairly independent in his lifestyle is beneficial for him. The patient agrees with this sentiment. The patient presented initially with severe peripheral vascular disease and some indication of osteomyelitis. We did proceed with a transmetatarsal amputation which was left open, and he was sent for assessment with Dr. Sammy You who was able to provide him 2 blood vessel runoff to the posterior tibial and the perforating peroneal. From that standpoint, there was some level of success with his initial , however, he did demarcate pretty significantly over the dorsalis pedis where he does have some significant peripheral vascular disease. Time was given to allow for him to demarcate these areas. He has demarcated at the anterior aspect to approximately the distal third of the ankle, and decision was made and options were discussed in regard to a below-knee amputation versus a Chopart amputation. The patient as stated before has a below-knee amputation to the right lower extremity, so the patient is adamant about attempting to salvage as much as possible at this time. The patient understands all risks, complications, and benefits of surgical intervention at this time including, but not limited to, infection, hematoma, seroma, possibility of delayed wound healing, non-wound healing, possible need for further surgical intervention at a later date. No guarantees were provided as to the outcome of surgical intervention. It is at this time we decided to proceed. DESCRIPTION OF PROCEDURE AND FINDINGS: The patient was brought into the operating room and placed on the operating room table in the supine position. At this time, general anesthesia was administered until the patient was adequately sedated. The left lower extremity was prepped and draped in the typical sterile fashion and lowered onto the surgical field. At this time, attention was directed to the demarcation along the anterior aspect of the transmetatarsal amputation site and up the anterior aspect of the ankle along the line of the dorsalis pedis . With that, excision of all demarcation was carried out, performing incision and drainage of these areas, debriding a significant amount of the tissue down to the level of bone. There is a significant amount of soft tissue loss, and the decision was made at this time to proceed with a Chopart amputation in order to get better coverage of the muscle flap as well as the graft. Chopart amputation was carried out utilizing a 10-blade and towel clamp in order to disarticulate these bones from their footprint. Once this was performed, 1000 mL of Bactisure and copious amounts of sterile saline were utilized to flush the surgical site. The muscle flap was assessed. The edges were then trimmed to check for healthy bleeding, which was apparent. Approximately 2 cm from our initial transfer site, this was retracted out of the way for later. Tibialis anterior tendon was identified and utilizing a 2.9 ToggleLoc as well as a BroadBand Tape, a loop suture was carried through the tibialis anterior tendon and drill holes were made to accommodate the 2.9 ToggleLoc to pull the tendon into the neck of the talus for better functionality of the limb and making this something possibly compatible with a prosthesis. From that standpoint, the tendon transfer was performed and checked under fluoroscopic imaging. From that standpoint, 2-0 Vicryl was then utilized to reflect the intrinsic muscle flap onto the face of the talus and the calcaneus, closing down any space between 1 suture down the skin flap on the plantar aspect of the foot was assessed. The lateral aspect had already demarcated. Areas to the central aspect of the plantar flap demarcated as well. Incision was made to check for healthy bleeding, removing approximately 6 cm of the plantar flap in order to get healthy bleeding at the edge. At this time, decision was made given the measurements of the wound to proceed with a 7 x 7.5 Restrata synthetic graft which was sutured to the wound base utilizing 4-0 Monocryl. Following this, a split-thickness skin graft was harvested from the left thigh after having provided an injection consistent of 10 mL of lidocaine with epinephrine proximal to the harvest site. Mineral oil was then applied over the harvest site and a dermatome blade was utilized to remove split-thickness skin graft which was then run through the mesher at a 1:1.5 ratio and placed on the synthetic skin substitute. This was sutured down utilizing simple interrupted nylon 4-0. From that standpoint, when coverage was performed, decision was made to proceed with the tendo-Achilles lengthening which was performed at 3, 5, and 8 cm from a medial lateral orientation respectively at the Achilles tendon from its insertion. This was carried out utilizing an 11-blade with the foot in a dorsiflexed position. There was some significant give once the third incision was made into the Achilles tendon. From that standpoint, 3-0 nylon was then utilized to coapt the skin edges in a simple interrupted-type fashion. A bolster dressing was applied to the patient's left lower extremity consisting of Adaptic, 4 x 4, Kerlix, ABD, and a 4-inch and 6-inch Butch with ABDs in between the Kerlix and Butch layer. The patient was then reversed from anesthesia and returned to the postanesthesia care unit with vital signs stable and vascular status intact. The patient handled the anesthesia as well as the procedure without significant complication. Postoperative orders as indicated in the patient's discharge chart.
== END 2024-03-13 16:49 | disposition home or self-care (01) ==
LOC: SDC 07:18
PROVIDERS: ATTEND Podiatrist Foot & Ankle Surgery
DX: M86.9 Osteomyelitis, unspecified (principal); E11.51 Type 2 diabetes mellitus with diabetic peripheral angiopathy without gangrene; E11.621 Type 2 diabetes mellitus with foot ulcer; Z89.511 Acquired absence of right leg below knee; R26.2 Difficulty in walking, not elsewhere classified
CPT/HCPCS: 13160; 15100; 15275; 15738; 27685; 27691; 28005; 28800; 36415; 73630; 76000; 80053; 82947; 85025; A2007; A6260; C1713; J0690; J1100; J1642; J2250; J2371; J2405; J2704; J3010; A9270-GY; Q4158

== ENCOUNTER 2024-03-13 18:57 | Observation (INO) | payer MEDICARE ==
[2024-03-13] MEDS ORDERED: Sodium Chloride 0.9% 1000 ML 1,000 ML ONE (19:13)
[2024-03-13] MEDS: Sodium Chloride 0.9% 1000 ML 1,000 ML IV STA ×2 (19:14→22:49)
[2024-03-13 19:24] LABS: Absolute Neutrophil Ct (ANC) 8.32 x10^3/uL (1.78-5.38); BASOPHIL % 0.3 % (0.2-1.2); Basophil (Absolute #) 0.03 x10^3/uL (0.01-0.08); Eosinophil (Absolute #) 0 x10^3/uL (0.04-0.54); Hematocrit 25.2 % (40.1-51.0); Hemoglobin 7.3 g/dL (13.7-17.5); IMMATURE GRAN # 0.22 x10^3u/L (0.001-0.031); IMMATURE GRAN % 2.3 % (0.001-0.429); Lymphocyte (Absolute #) 0.92 x10^3/uL (1.32-3.57); Lymphocytes % 9.4 % (21.8-53.1); Mean Cell Volume 88.1 fL (79.0-92.2); Mean Corpuscular Hemoglobin 25.5 pg (25.7-32.2); Mean Platelet Volume 9.1 fL (9.4-12.4); Monocyte (Absolute #) 0.28 x10^3/uL (0.30-0.82); Monocytes % 2.9 % (5.3-12.2); Neutrophil % 85.1 % (34.0-67.9); Platelet Count 441 x10^3/uL (163-337); Red Blood Count 2.86 x10^6/uL (4.63-6.08); Red Cell Distribution Width 14.7 % (11.6-14.4); White Blood Count 9.8 x10^3/uL (4.23-9.07)
--- NOTE | 2024-03-13 19:29 | ERPHSYRPT ---
- History of Present Illness Time Seen by Provider: 03/13/24 19:27 Source: patient Exam Limitations: no limitations Patient Subjective Stated Complaint: Weakness Triage Nursing Assessment: ,,, Physician History: 68-year-old male history of SD, peripheral vascular disease, hypertension, type 2 diabetes presents to our ED via EMS for evaluation of low blood pressure. Patient has history of diabetes. They report that patient's left lower extremity was debrided today by our podiatry service. Patient has been bleeding considerably since the procedure. Patient's blood pressure is now low at patient is pale and diaphoretic. Patient denies pain. No chest pain or shortness of breath. No nausea vomiting or diaphoresis. Symptoms are mild to moderate in intensity. Patient otherwise feels well. He voices no other complaints or concerns at this time Portions of this note were created with voice recognition technology. There may be grammatical, spelling, punctuation or sound alike errors Timing/Duration: today Severity: moderate Modifying Factors: Improves With: nothing Associated Symptoms: denies symptoms Allergies/Adverse Reactions: No Known Drug Allergies Allergy (Verified 03/13/24 22:30) Home Medications: Fenofibrate 200 mg PO HS 10/05/22 [History] Gabapentin [Neurontin ] 300 mg PO TID 10/05/22 [History] Insulin Lispro 40 unit SQ TIDAC 10/05/22 [History] Atorvastatin Calcium 80 mg PO HS 12/15/23 [History] Clopidogrel Bisulfate [Clopidogrel] 75 mg PO DAILY 12/15/23 [History] Duloxetine HCl 30 mg PO DAILY 12/15/23 [History] Lisinopril 10 mg [Zestril 10 MG] 20 mg PO DAILY 12/15/23 [History] Tamsulosin HCl 0.4 mg [Flomax 0.4 MG] 0.4 mg PO HS 12/15/23 [History] Tirzepatide [Mounjaro] 10 mg SQ WEEKLY 01/26/24 [History] Nitroglycerin 0.4 mg Tablet [Nitrostat 0.4 MG Tablet] 0.4 mg SL UD PRN 03/08/24 [History] Aspirin EC 81 mg [Ecotrin 81 mg] 81 mg PO DAILY 03/13/24 [History] Cholecalciferol (Vitamin D3) [Vitamin D3] 125 mcg PO DAILY 03/13/24 [History] Ertugliflozin Pidolate [Steglatro] 15 mg PO DAILY 03/13/24 [History] Hydrocodone/Acetaminophen [Hydrocodone-Acetamin 7.5-325] 1 tab PO Q4H PRN PRN [History] Insulin Glargine,Hum.rec.anlog [Lantus] 10 unit SQ HS 03/13/24 [History] Metoprolol Tartrate 25 mg [Lopressor 25MG Tab] 12.5 mg PO BID 03/13/24 [History] Omeprazole 40 mg PO DAILY 03/13/24 [History] Oxycodone HCl/Acetaminophen [Oxycodone-Acetaminophn 7.5-325] 1 tab PO Q6H PRN PRN 03/13/24 [History] Rivaroxaban [Xarelto] 2.5 mg PO BID 03/13/24 [History] Hx Tetanus, Diphtheria Vaccination/Date Given: No (couple years) Hx Influenza Vaccination/Date Given: No Hx Pneumococcal Vaccination/Date Given: No Immunizations Up to Date: Yes Travel Risk - International Travel Have you traveled outside of the country in past 3 weeks: No - Emerging Infectious Disease Are you exhibiting symptoms associated with any current EIDs: No - Review of Systems Constitutional: No Symptoms, No Fever, No Chills Eyes: No Symptoms Ears, Nose, & Throat: No Symptoms Respiratory: No Symptoms, No Cough, No Dyspnea Cardiac: No Symptoms, No Chest Pain, No Edema, No Syncope Abdominal/Gastrointestinal: No Symptoms, No Abdominal Pain, No Nausea, No Vomiting, No Diarrhea Genitourinary Symptoms: No Symptoms, No Dysuria Musculoskeletal: No Symptoms, No Back Pain, No Neck Pain Skin: No Symptoms, No Rash Neurological: No Symptoms, No Dizziness, No Focal Weakness, No Sensory Changes Psychological: No Symptoms Endocrine: No Symptoms Hematologic/Lymphatic: No Symptoms Immunological/Allergic: No Symptoms All Other Systems: Reviewed and Negative - Past Medical History Pertinent Past Medical History: Yes Neurological History: Other ENT History: Other Cardiac History: Coronary Artery Disease, Hypertension, Myocardial Infarction (SD) Respiratory History: No Pertinent History Endocrine Medical History: Diabetes Type II, Other Musculoskeletal History: No Pertinent History GI Medical History: GERD History: Renal Disease Other Medical History: GABAPENTIN, MEDICATION FOR PHANTOM PAINS. CABCX3, STINTS. 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 R BKA. - Past Surgical History Past Surgical History: Yes Neuro Surgical History: No Pertinent History Cardiac: Other Respiratory: No Pertinent History Gastrointestinal: No Pertinent History Genitourinary: No Pertinent History Musculoskeletal: Amputation Male Surgical History: No Pertinent History Other Surgical History: Rt hand tendons. triple bypass. rt leg amputation 2019 - Social History Smoking Status: Former smoker How long have you smoked: 40+ Exposure to second hand smoke: No Drug Use: none Patient Lives Alone: Yes - Social Determinants of Health Will the patient participate in the screening: Yes Do you worry about a steady place to live?: No Do you have any problems with any of the following?: No known problems In the past 12 months,have you had to go without utilities?: No Transportation Issues: No Has anyone in your support network made you feel unsafe?: No Have you or anyone in your house had to go without enough: No - Nursing Vital Signs Nursing Vital Signs: Initial Vital Signs Temperature 98.2 F 03/13/24 19:00 Pulse Rate 99 H 03/13/24 19:00 Respiratory Rate 20 03/13/24 19:00 Blood Pressure 63/45 03/13/24 19:00 O2 Sat by Pulse Oximetry 99 03/13/24 19:00 Pain Scale Pain Intensity 4 - Physical Exam General Appearance: no apparent distress, alert Eye Exam: PERRL/EOMI, eyes nml inspection Ears, Nose, Throat Exam: normal ENT inspection, moist mucous membranes Neck Exam: normal inspection, full range of motion Respiratory Exam: normal breath sounds, lungs clear, airway intact, No respiratory distress Cardiovascular Exam: regular rate/rhythm, normal heart sounds, other (Left postoperative lower extremity/stump shows no active bleeding. Dressing was removed by nursing staff. Granular wound base. No obvious necrotic tissue) Gastrointestinal/Abdomen Exam: soft, normal bowel sounds, No tenderness, No mass Back Exam: normal inspection, normal range of motion, No CVA tenderness, No vertebral tenderness Extremity Exam: normal inspection, normal range of motion, pelvis stable Neurologic Exam: alert, oriented x 3, cooperative, No motor deficits Skin Exam: normal color, warm, dry, No rash Lymphatic Exam: No adenopathy SpO2 Interpretation: normal SpO2: 99 O2 Delivery: Room Air - Course Nursing assessment & vital signs reviewed: Yes EKG Interpreted by Me: RATE ([id number]), Sinus Rhythm, NORMAL AXIS, NORMAL INTERVALS, NORMAL QRS Ordered Tests: Active Orders 24 hr Category Date Time Status Bedrest ROUTINE Activity 03/13/24 21:59 Active Call Admit Doctor for Orders ON ADMISSION Care 03/13/24 21:59 Active Telecommunications Consultant STAT Care 03/13/24 19:05 Completed Code Status Order ROUTINE Care 03/13/24 21:59 Active EKG-ER Only STAT Care 03/13/24 19:05 Completed IV Insertion STAT Care 03/13/24 19:05 Completed Neuro Checks Q4H Care 03/13/24 21:[address] in Observation ROUTINE Care 03/13/24 21:59 Active Pulse Oximetry (ED) STAT Care 03/13/24 19:05 Completed Telemetry q6 Care 03/13/24 21:59 Active Telemetry q6 Care 03/13/24 21:59 Active CBC W DIFF Stat Lab 03/13/24 19:10 Completed CMP Stat Lab 03/13/24 19:10 Completed TROPONIN Q4H Lab 03/13/24 19:10 Completed TROPONIN Q4H Lab 03/13/24 23:15 Ordered TROPONIN Q4H Lab 03/14/24 03:15 Ordered Pulse Oximetry .spot check RT 03/13/24 21:59 Completed Transfer Order Routine Transfer 03/13/24 Completed Medication Summary Generic Name Dose Route Start Last Admin Trade Name Freq PRN Reason Stop Dose Admin Hydrocodone Bitart/Acetaminophen 1 tab 03/13/24 22:19 Hydrocodone /Apap 7.5/325 Mg 1 Each Tablet PO 03/18/24 22:18 Q4H PRN PRN MODERATE TO SEVERE PAIN Aspirin 81 mg 03/14/24 10:00 Aspirin 81 Mg Tablet.Ec PO 04/13/24 09:59 DAILY GUSTAVO Sodium Chloride 1,000 mls @ 999 mls/hr 03/13/24 22:17 03/13/24 22:49 Sodium Chloride 0.9% 1000 Ml IV 03/13/24 23:17 999 mls/hr .Q1H1M STA Administration Insulin Glargine 10 unit 03/14/24 22:00 Insulin Glargine 1 Unit SQ 04/13/24 21:59 HS GUSTAVO Insulin Human Lispro 0 unit 03/13/24 22:17 Insulin Lispro 1 Unit SQ 04/12/24 22:16 UD PRN HYPERGLYCEMIA Insulin Human Lispro 10 unit 03/14/24 07:30 Insulin Lispro 1 Unit SQ 04/13/24 07:29 AC GUSTAVO Nitroglycerin 0.4 mg 03/13/24 22:19 Nitroglycerin 0.4 Mg Tablet Bottle SL 04/12/24 22:18 UD PRN CHEST PAIN Non-Formulary Medication 80 mg 03/14/24 22:00 Atorvastatin Calcium [Atorvastatin Calcium] PO 04/13/24 21:59 HS GUSTAVO Non-Formulary Medication 30 mg 03/14/24 10:00 Duloxetine Hcl [Duloxetine Hcl] PO 04/13/24 09:59 DAILY GUSTAVO Non-Formulary Medication 200 mg 03/14/24 22:00 Fenofibrate [Fenofibrate] PO 04/13/24 21:59 HS GUSTAVO Non-Formulary Medication 40 mg 03/14/24 10:00 Omeprazole [Omeprazole] PO 04/13/24 09:59 DAILY [facility] Non-Formulary Medication 125 mcg 03/14/24 10:00 Cholecalciferol (Vitamin D3) [Vitamin D3] PO 04/13/24 09:59 DAILY GUSTAVO Pantoprazole Sodium 40 mg 03/13/24 23:00 03/13/24 23:12 Pantoprazole 40 Mg Vial IV 04/12/24 22:59 40 mg Q24H GUSTAVO Administration Tamsulosin HCl 0.4 mg 03/14/24 22:00 Tamsulosin Hcl 0.4 Mg Cap PO 04/13/24 21:59 HS [facility] Discontinued Medications Generic Name Dose Route Start Last Admin Trade Name Claritza PRN Reason Stop Dose Admin Hydrocodone Bitart/Acetaminophen 1 tablet 03/13/24 21:09 03/13/24 21:17 Hydrocodone/Acetamin 10-325 Mg Tablet PO 03/13/24 21:10 1 tablet DAILY STA Administration Hydrocodone Bitart/Acetaminophen Confirm 03/13/24 21:16 Hydrocodone/Acetamin 10-325 Mg Tablet Administered 03/13/24 21:17 Dose 1 tablet .ROUTE .STK-MED ONE Sodium Chloride 1,000 mls @ 999 mls/hr 03/13/24 19:05 03/13/24 21:18 Sodium Chloride 0.9% 1000 Ml IV 03/13/24 20:05 Infused .Q1H1M STA Infusion Sodium Chloride Confirm 03/13/24 19:13 Sodium Chloride 0.9% 1000 Ml Administered 03/13/24 19:14 Dose 1,000 mls @ .ROUTE .[facility] ONE Lab/Rad Data: Laboratory Result Diagrams 03/13/24 19:10 03/13/24 19:10 Laboratory Results 03/13/24 03/13/24 03/13/24 Range/Units 19:10 19:10 19:10 WBC (4.23-9.07) x10^3/uL RBC (4.63-6.08) x10^6/uL Hgb (13.7-17.5) g/dL Hct (40.1-51.0) % MCV (79.0-92.2) fL MCH (25.7-32.2) pg MCHC (32.3-36.5) g/dL RDW (11.6-14.4) % Plt Count (163-337) x10^3/uL MPV (9.4-12.4) fL Gran % (34.0-67.9) % Immature Gran % (Auto) (0.001-0.429) % Nucleat RBC Rel Count (0.00-0.2) % Eos # (Auto) (0.04-0.54) x10^3/uL Immature Gran # (Auto) (0.001-0.031) x10^3u/L Absolute Lymphs (auto) (1.32-3.57) x10^3/uL Absolute Monos (auto) (0.30-0.82) x10^3/uL Absolute Nucleated RBC (0.00-0.012) x10^3u/L Lymphocytes % (21.8-53.1) % Monocytes % (5.3-12.2) % Eosinophils % (0.8-7.0) % Basophils % (0.2-1.2) % Absolute Granulocytes (1.78-5.38) x10^3/uL Basophils # (0.01-0.08) x10^3/uL Sodium (135-145) mmol/L Potassium (3.5-5.1) mmol/L Chloride (98-107) mmol/L Carbon Dioxide (22-30) mmol/L Anion Gap (5-15) MEQ/L BUN (9-20) mg/dL Creatinine (0.66-1.25) mg/dL Estimated GFR ML/MIN Glucose (74-106) mg/dL Calcium (8.4-10.2) mg/dL Total Bilirubin (0.2-1.3) mg/dL AST (17-59) U/L ALT (0-50) U/L Alkaline Phosphatase (38-126) U/L Troponin I < 0.012 (0.000-0.033) ng/mL Serum Total Protein (6.3-8.2) g/dL Albumin (3.5-5.0) g/dL ABO Group A Rh Factor POSITIVE Antibody Screen NEGATIVE (NEGATIVE) Crossmatch COMPATIBLE COMPATIBLE (COMPATIBLE) 03/13/24 03/13/24 Range/Units 19:10 19:10 WBC 9.8 H (4.23-9.07) x10^3/uL RBC 2.86 L (4.63-6.08) x10^6/uL Hgb 7.3 L D (13.7-17.5) g/dL Hct 25.2 L (40.1-51.0) % MCV 88.1 D (79.0-92.2) fL MCH 25.5 L (25.7-32.2) pg MCHC 29.0 L (32.3-36.5) g/dL RDW 14.7 H (11.6-14.4) % Plt Count 441 H D (163-337) x10^3/uL MPV 9.1 L (9.4-12.4) fL Gran % 85.1 H (34.0-67.9) % Immature Gran % (Auto) 2.3 H (0.001-0.429) % Nucleat RBC Rel Count 0.0 (0.00-0.2) % Eos # (Auto) 0 L (0.04-0.54) x10^3/uL Immature Gran # (Auto) 0.22 H (0.001-0.031) x10^3u/L Absolute Lymphs (auto) 0.92 L (1.32-3.57) x10^3/uL Absolute Monos (auto) 0.28 L (0.30-0.82) x10^3/uL Absolute Nucleated RBC 0.00 (0.00-0.012) x10^3u/L Lymphocytes % 9.4 L (21.8-53.1) % Monocytes % 2.9 L (5.3-12.2) % Eosinophils % 0.0 L (0.8-7.0) % Basophils % 0.3 (0.2-1.2) % Absolute Granulocytes 8.32 H (1.78-5.38) x10^3/uL Basophils # 0.03 (0.01-0.08) x10^3/uL Sodium 137 (135-145) mmol/L Potassium 5.2 H D (3.5-5.1) mmol/L Chloride 102 (98-107) mmol/L Carbon Dioxide 14 L* (22-30) mmol/L Anion Gap 26.9 H (5-15) MEQ/L BUN 18 (9-20) mg/dL Creatinine 1.60 H (0.66-1.25) mg/dL Estimated GFR 46.4 ML/MIN Glucose 294 H (74-106) mg/dL Calcium 9.2 (8.4-10.2) mg/dL Total Bilirubin 0.40 (0.2-1.3) mg/dL AST 47 (17-59) U/L ALT 46 (0-50) U/L Alkaline Phosphatase 88 (38-126) U/L Troponin I (0.000-0.033) ng/mL Serum Total Protein 5.4 L (6.3-8.2) g/dL Albumin 2.9 L (3.5-5.0) g/dL ABO Group Rh Factor Antibody Screen (NEGATIVE) Crossmatch (COMPATIBLE) - Progress Progress: improved Progress Note: Case discussed with hospitalist Dr. Arroyo who accepts admission at 9:05 PM. Patient is a 68-year-old male presents to our ED for evaluation of low blood pressure. Patient blood significantly from the post operative site. Patient had an approximately 2 g hemoglobin drop in less in 24 hours. Patient in no respiratory distress. Workup reveals a metabolic acidosis. Bicarb of 14. Acute renal injury. All secondary to diminished blood volume. Upon arrival to our ED patient was hypotensive with a systolic in the 80s. Patient blood pressure improved to 107 systolic. Type and screen completed. Blood products ordered. Plan of care discussed with patient. He agreed to admission [facility] for further evaluation and treatment. Portions of this note were created with voice recognition technology. There may be grammatical, spelling, punctuation or sound alike errors Complexity problem addressed is moderate acute complicated. No critical care time. Complex of data reviewed and analyzed is extensive. Test ordered test reviewed results analyzed and correlated clinically with history and physical exam. Management discussed with hospitalist will except admission to observation. Risk of complication and or risk of morbidity/mortality patient ma nagmarcos is high. Patient requires hospitalization for further evaluation and treatment. Blood pressure improved. Vitals otherwise stable. Time spent admit patient approximately 15 minutes. Plan of care established for shared decision making. No social determinants of health present to impede follow-up. Portions of this note were created with voice recognition technology. There may be grammatical, spelling, punctuation or sound alike errors 03/13/24 23:26 Counseled pt/family regarding: lab results, diagnosis - Departure Departure Disposition: Observation Clinical Impression: Hypotension, Symptomatic anemia, Postoperative wound hemorrhage, Metabolic acidosis, Acute renal injury Condition: Stable Critical Care Time: No
[2024-03-13 19:37] LABS: ALBUMIN 2.9 g/dL (3.5-5.0); ANION GAP 26.9 MEQ/L (5-15); BILIRUBIN,TOTAL 0.4 mg/dL (0.2-1.3); Calcium 9.2 mg/dL (8.4-10.2); Creatinine 1 1.6 mg/dL (0.66-1.25); EST GLOMERULAR FILTRATION RATE 46.4 ML/MIN; Potassium 5.2 mmol/L (3.5-5.1); Total Protein 5.4 g/dL (6.3-8.2)
[2024-03-13 20:43] LABS: ABO TYPING A
[2024-03-13 20:44] LABS: Antibody Screen NEGATIVE (NEGATIVE); RH TYPING POSITIVE
[2024-03-13 20:45] LABS: CROSS MATCH (PRBC) COMPATIBLE (COMPATIBLE)
[2024-03-13 20:46] LABS: CROSS MATCH (PRBC) COMPATIBLE (COMPATIBLE)
[2024-03-13] MEDS ORDERED: NORCO 10-325 MG ONE (21:16)
[2024-03-13] MEDS: NORCO 10-325 MG PO STA (21:17)
[2024-03-13] MEDS ORDERED: HUMALOG SQ PRN (22:17)
[2024-03-13] MEDS ORDERED: Nitrostat 0.4 MG Tablet SL PRN (22:19)
--- NOTE | 2024-03-13 22:23 | PCM.HP ---
History of Present Illness - Chief Complaint Chief Complaint: Symptomatic anemia, hypotension Date: 03/13/24 History of Present Illness: 68 years old very pleasant male with medical history significant for coronary artery disease, hypertension, diabetes mellitus type 2, peripheral arterial disease status post right foot amputation, recently underwent left TMT 3 weeks ago, CKD stage III brought to ER from Dr. Mejia office for concern of acute blood loss anemia with subsequent dizziness and hypotension. As per patient he underwent [facility] that resulted in significant blood loss,he felt very dizzy and blood pressure went down significantly. Patient sent to ER for further evaluation. in the ER the initial blood pressure was 63/45, his hemoglobin dropped from 9.6---->7.3, he denied chest pain shortness of breath, did not have any other GI urinary symptoms. After 1 L of Ns, BP improved to systolic more than 80, As far as blood workup concerned all came out unremarkable except creatinine went up to 1.6, bicarb is 14, anion gap 26, blood sugar running more than 400, beta-hydroxybutyrate pending patient is admitted for concern of hypovolemic shock due to acute blood loss anemia. 2 units blood arranged and patient admitted for further care - Review of Systems All Other Systems: Reviewed and Negative (14 systems reviewed and marked ve except mentioned in CR[facility]) Medications & Allergies Home Medications: Home Medication List Fenofibrate 200 mg PO HS 10/05/22 [History Confirmed 03/13/24] Gabapentin [Neurontin ] 300 mg PO TID 10/05/22 [History Confirmed 03/13/24] Insulin Lispro 40 unit SQ TIDAC 10/05/22 [History Confirmed 03/13/24] Atorvastatin Calcium 80 mg PO HS 12/15/23 [History Confirmed 03/13/24] Clopidogrel Bisulfate [Clopidogrel] 75 mg PO DAILY 12/15/23 [History Confirmed 03/13/24] Duloxetine HCl 30 mg PO DAILY 12/15/23 [History Confirmed 03/13/24] Lisinopril 10 mg [Zestril 10 MG] 20 mg PO DAILY 12/15/23 [History Confirmed 03/13/24] Tamsulosin HCl 0.4 mg [Flomax 0.4 MG] 0.4 mg PO HS 12/15/23 [History Confirmed 03/13/24] Tirzepatide [Mounjaro] 10 mg SQ WEEKLY 01/26/24 [History Confirmed 03/13/24] Nitroglycerin 0.4 mg Tablet [Nitrostat 0.4 MG Tablet] 0.4 mg SL UD PRN 03/08/24 [History Confirmed 03/13/24] Aspirin EC 81 mg [Ecotrin 81 mg] 81 mg PO DAILY 03/13/24 [History Confirmed 03/13/24] Cholecalciferol (Vitamin D3) [Vitamin D3] 125 mcg PO DAILY 03/13/24 [History Confirmed 03/13/24] Ertugliflozin Pidolate [Steglatro] 15 mg PO DAILY 03/13/24 [History Confirmed 03/13/24] Hydrocodone/Acetaminophen [Hydrocodone-Acetamin 7.5-325] 1 tab PO Q4H PRN PRN 03/13/24 [History Confirmed 03/13/24] Insulin Glargine,Hum.rec.anlog [Lantus] 10 unit SQ HS 03/13/24 [History Confirmed 03/13/24] Metoprolol Tartrate 25 mg [Lopressor 25MG Tab] 12.5 mg PO BID 03/13/24 [History Confirmed 03/13/24] Omeprazole 40 mg PO DAILY 03/13/24 [History Confirmed 03/13/24] Oxycodone HCl/Acetaminophen [Oxycodone-Acetaminophn 7.5-325] 1 tab PO Q6H PRN PRN 03/13/24 [History Confirmed 03/13/24] Rivaroxaban [Xarelto] 2.5 mg PO BID 03/13/24 [History Confirmed 03/13/24] Allergies/Adverse Reactions: Allergies Allergy/AdvReac Type Severity Reaction Status Date / Time No Known Drug Allergies Allergy Verified 03/13/24 22:30 - Past Medical History Past Medical History: Yes Neurological History: Other ENT History: Other Cardiac History: Coronary Artery Disease, Hypertension, Myocardial Infarction (ND) Respiratory History: No Pertinent History Endocrine Medical History: Diabetes Type II, Other Musculoskelatal History: No Pertinent History GI Medical History: GERD History: Renal Disease Pyscho-Social History: No Pertinent History Male Reproductive Disorders: No Pertinent History Comment: GABAPENTIN, MEDICATION FOR PHANTOM PAINS. CABGX3, STINTS. ND X2. R BKA. - Past Surgical History Past Surgical History: Yes Neuro Surgical History: No Pertinent History Cardiac History: Other Respiratory Surgery: No Pertinent History GI Surgical History: No Pertinent History Genitourinary Surgical Hx: No Pertinent History Musculskeletal Surgical Hx: Amputation Male Surgical History: No Pertinent History Other Surgical History: Rt hand tendons. triple bypass. rt leg amputation 2019. amputation to left foot (toes) Significant Family History: no pertinent family hx - Social History Smoking Status: Former smoker How long have you smoked: 40+ Exposure to second hand smoke: No Alcohol: None Drug Use: none - Social Determinants of Health Will the patient participate in the screening: Yes Do you worry about a steady place to live?: No Do you have any problems with any of the following?: No known problems In the past 12 months,have you had to go without utilities?: No Have you or anyone in your house had to go without enough: No Transportation Issues: No Has anyone in your support network made you feel unsafe?: No Does the patient want assistance with any of the above?: No - Physical Exam Vital Signs: Vital Signs - 24 hr Temp Pulse Resp BP BP Pulse Ox 03/13/24 21:30 97 H 16 81/43 100 03/13/24 21:00 103 H 20 89/57 03/13/24 20:53 99 03/13/24 20:51 103 H 14 76/54 100 03/13/24 20:50 102 H 17 96 03/13/24 20:40 101 H 7 L 03/13/24 20:30 102 H 16 99 03/13/24 20:02 98.2 F 100 H 16 63/39 96 03/13/24 20:01 99 H 22 63/39 89 L 03/13/24 19:43 97 03/13/24 19:42 97 H 20 84/43 96 03/13/24 19:30 99 H 21 84/43 100 03/13/24 19:00 98.2 F 99 H 20 63/45 99 Additional Findings: 03/13/24 22:22 HEENT Old aged, average built in no distress NECK Supple,no thyromegaly, CVS S1+S2 + 0, no murmers RESP Bilateral equal air entry without Crepts/Wheezes heard GIT Soft non tender,non distended Skin, No rah, no Bruises LEGS No Edema PSYCH Normal,mood, judgement and insight NEURO AOX3, no focal deficit Results - Labs Lab/Micro Results: Lab Results-Last 24 Hours 03/13/24 03/13/24 03/13/24 Range/Units 19:10 19:10 19:10 WBC 9.8 H (4.23-9.07) x10^3/uL RBC 2.86 L (4.63-6.08) x10^6/uL Hgb 7.3 L D (13.7-17.5) g/dL Hct 25.2 L (40.1-51.0) % MCV 88.1 D (79.0-92.2) fL MCH 25.5 L (25.7-32.2) pg MCHC 29.0 L (32.3-36.5) g/dL RDW 14.7 H (11.6-14.4) % Plt Count 441 H D (163-337) x10^3/uL MPV 9.1 L (9.4-12.4) fL Gran % 85.1 H (34.0-67.9) % Immature Gran % (Auto) 2.3 H (0.001-0.429) % Nucleat RBC Rel Count 0.0 (0.00-0.2) % Eos # (Auto) 0 L (0.04-0.54) x10^3/uL Immature Gran # (Auto) 0.22 H (0.001-0.031) x10^3u/L Absolute Lymphs (auto) 0.92 L (1.32-3.57) x10^3/uL Absolute Monos (auto) 0.28 L (0.30-0.82) x10^3/uL Absolute Nucleated RBC 0.00 (0.00-0.012) x10^3u/L Lymphocytes % 9.4 L (21.8-53.1) % Monocytes % 2.9 L (5.3-12.2) % Eosinophils % 0.0 L (0.8-7.0) % Basophils % 0.3 (0.2-1.2) % Absolute Granulocytes 8.32 H (1.78-5.38) x10^3/uL Basophils # 0.03 (0.01-0.08) x10^3/uL Sodium 137 (135-145) mmol/L Potassium 5.2 H D (3.5-5.1) mmol/L Chloride 102 (98-107) mmol/L Carbon Dioxide 14 L* (22-30) mmol/L Anion Gap 26.9 H (5-15) MEQ/L BUN 18 (9-20) mg/dL Creatinine 1.60 H (0.66-1.25) mg/dL Estimated GFR 46.4 ML/MIN Glucose 294 H (74-106) mg/dL Calcium 9.2 (8.4-10.2) mg/dL Total Bilirubin 0.40 (0.2-1.3) mg/dL AST 47 (17-59) U/L ALT 46 (0-50) U/L Alkaline Phosphatase 88 (38-126) U/L Troponin I < 0.012 (0.000-0.033) ng/mL Serum Total Protein 5.4 L (6.3-8.2) g/dL Albumin 2.9 L (3.5-5.0) g/dL ABO Group Rh Factor Antibody Screen (NEGATIVE) Crossmatch (COMPATIBLE) 03/13/24 03/13/24 Range/Units 19:10 19:10 WBC (4.23-9.07) x10^3/uL RBC (4.63-6.08) x10^6/uL Hgb (13.7-17.5) g/dL Hct (40.1-51.0) % MCV (79.0-92.2) fL MCH (25.7-32.2) pg MCHC (32.3-36.5) g/dL RDW (11.6-14.4) % Plt Count (163-337) x10^3/uL MPV (9.4-12.4) fL Gran % (34.0-67.9) % Immature Gran % (Auto) (0.001-0.429) % Nucleat RBC Rel Count (0.00-0.2) % Eos # (Auto) (0.04-0.54) x10^3/uL Immature Gran # (Auto) (0.001-0.031) x10^3u/L Absolute Lymphs (auto) (1.32-3.57) x10^3/uL Absolute Monos (auto) (0.30-0.82) x10^3/uL Absolute Nucleated RBC (0.00-0.012) x10^3u/L Lymphocytes % (21.8-53.1) % Monocytes % (5.3-12.2) % Eosinophils % (0.8-7.0) % Basophils % (0.2-1.2) % Absolute Granulocytes (1.78-5.38) x10^3/uL Basophils # (0.01-0.08) x10^3/uL Sodium (135-145) mmol/L Potassium (3.5-5.1) mmol/L Chloride (98-107) mmol/L Carbon Dioxide (22-30) mmol/L Anion Gap (5-15) MEQ/L BUN (9-20) mg/dL Creatinine (0.66-1.25) mg/dL Estimated GFR ML/MIN Glucose (74-106) mg/dL Calcium (8.4-10.2) mg/dL Total Bilirubin (0.2-1.3) mg/dL AST (17-59) U/L ALT (0-50) U/L Alkaline Phosphatase (38-126) U/L Troponin I (0.000-0.033) ng/mL Serum Total Protein (6.3-8.2) g/dL Albumin (3.5-5.0) g/dL ABO Group A Rh Factor POSITIVE Antibody Screen NEGATIVE (NEGATIVE) Crossmatch COMPATIBLE COMPATIBLE (COMPATIBLE) Assessment/Plan (1) Acute renal injury Current Visit: Yes Status: Acute Code(s): N17.9 - ACUTE KIDNEY FAILURE, UNSPECIFIED (2) Hypotension Current Visit: Yes Status: Acute Code(s): I95.9 - HYPOTENSION, UNSPECIFIED (3) Metabolic acidosis Current Visit: Yes Status: Acute Code(s): E87.20 - ACIDOSIS, UNSPECIFIED (4) Symptomatic anemia Current Visit: Yes Status: Acute Code(s): D64.9 - ANEMIA, UNSPECIFIED (5) CAD (coronary artery disease) Current Visit: No Status: Acute Code(s): I25.10 - ATHSCL HEART DISEASE OF [place] CORONARY ARTERY W/O ANG PCTRS (6) Peripheral vascular disease due to secondary diabetes mellitus Current Visit: No Status: Acute Code(s): E13.51 - OTH DIABETES W DIABETIC PERIPHERAL ANGIOPATHY W/O GANGRENE (7) Type 2 diabetes mellitus Current Visit: No Status: Acute Telemedicine Encounter - Telemedicine Encounter Telemedicine Encounter: The entirety of this encounter was performed via Telemedicine.This visit was performed using real-time audio and video connection between my location and thepatients locationwith the assistance of a surrogateat the patients location. Written or verbal consent was obtained from the patient/guardian to perform this visit usingRidejoy technology. Any patient questions regarding the telemedicine interaction were answered. Acute hypovolemic shock BP went down to 63/45 due to significant blood loss It got improved to systolic 80 with 1 L of normal saline I will give another 1 L bolus Plan to give 2 units blood Target to keep MAP more than 65 Low threshold to be started on pressors in case of failure of fluid boluses and PRBC transfusion Acute blood loss anemia Patient underwent debridement of wound at podiatry office today Hemoglobin dropped from 9.6----->7.3 will give 2 units blood Keep watching hemoglobin closely Acute on chronic kidney injury Baseline creatinine 1.3 Creatinine went up to 1.6 Continue IV fluids Keep avoiding nephrotoxins Pt F/u with Dr Jeffrey as ou pt Hyperglycemia With concern of DKA Bicarb 14, anion gap 26 Lactate running less than 2, will check beta-hydroxybutyrate I will give another 1 L bolus, 10 units insulin, will recheck BMP if anion gap still high will start IV insulin per DKA protocol Coronary artery disease Without any chest pain or shortness of breath Resume all home meds excluding Plavix/beta-blockers Peripheral arterial disease Status post right foot amputation Left foot TMT 3 weeks ago on Xarelto, Plavix and aspirin, Keep holding all of them Diabetes mellitus type 2 Last HbA1c 7.1 Patient is on 10 units Lantus, 40 units lispro 3 times daily with meal I will continue lispro 10 units with meals, medium dose sliding scale, resume home Lantus DVT prophylaxis SCD only GI prophylaxis pantoprazole CODE STATUS full Discharge planning pending clinical stability. Time spent in the care of this sick pt was > 40 min including FTF through televisit, chart review/coordination of care with pt, staff and network systems consultant I have reviewed patient lab vitals and imaging in detail all question and concerns were addressed
[2024-03-13] MEDS: PROTONIX 40 MG IV IV SCH (23:12)
[2024-03-14 01:16] LABS: ANION GAP 16.9 MEQ/L (5-15); Calcium 8.7 mg/dL (8.4-10.2); Creatinine 1 1.55 mg/dL (0.66-1.25); EST GLOMERULAR FILTRATION RATE 48.2 ML/MIN; Potassium 5.1 mmol/L (3.5-5.1)
[2024-03-14 04:59] LABS: Hematocrit 26.6 % (40.1-51.0); Hemoglobin 8.2 g/dL (13.7-17.5); Mean Cell Volume 87.2 fL (79.0-92.2); Mean Corpuscular Hemoglobin 26.9 pg (25.7-32.2); Mean Corpuscular Hgb Concent. 30.8 g/dL (32.3-36.5); Mean Platelet Volume 9.2 fL (9.4-12.4); Platelet Count 313 x10^3/uL (163-337); Red Blood Count 3.05 x10^6/uL (4.63-6.08); Red Cell Distribution Width 14.7 % (11.6-14.4); White Blood Count 12.5 x10^3/uL (4.23-9.07)
[2024-03-14 05:19] LABS: ANION GAP 13.1 MEQ/L (5-15); Calcium 9.1 mg/dL (8.4-10.2); Creatinine 1 1.33 mg/dL (0.66-1.25); EST GLOMERULAR FILTRATION RATE 57.9 ML/MIN; Potassium 5.1 mmol/L (3.5-5.1)
[2024-03-14] MEDS: Lactated Ringers 1,000 ML IV SCH (05:48)
[2024-03-14] MEDS: NORCO 7.5/325 MG TAB PO PRN (05:56)
[2024-03-14 07:40] LABS: Hemoglobin 8.5 g/dL (13.7-17.5)
[2024-03-14] MEDS: HUMALOG SQ SCH (08:22)
--- NOTE | 2024-03-14 08:50 | XRAY ---
Indication: Difficulty flushing PICC line. Comparison: January 25, 2024 Portable chest does not demonstrate PICC line either removed or withdrawn. Remaining heart and lungs normal again with incidental calcified granulomas and CABG surgery. Bony thorax intact. No new/acute cardiopulmonary abnormalities.
[2024-03-14] MEDS: Cymbalta 30 MG Capsule PO SCH (09:25)
[2024-03-14] MEDS: VITAMIN D PO SCH (09:25)
[2024-03-14] MEDS: ECOTRIN 81 MG PO SCH (09:25)
[2024-03-14] MEDS ORDERED: NON-FORMULARY ITEM (Cholecalciferol (Vitamin D3) [Vitamin D3] 125 MCG Capsule) PO SCH (10:00)
[2024-03-14] MEDS ORDERED: NON-FORMULARY ITEM (Duloxetine Hcl [Duloxetine Hcl] 60 MG Capsule.Dr) PO SCH (10:00)
[2024-03-14] MEDS ORDERED: NON-FORMULARY ITEM (Omeprazole [Omeprazole] 40 MG Capsule.Dr) PO SCH (10:00)
--- NOTE | 2024-03-14 10:59 | PCM.DS ---
Discharge Summary Date of Admission: 03/13/24 21:55 Date of Discharge: 03/14/24 Admitting Physician: BRITTANI EVANS MD Primary Care Provider: BRIAN STONE Allergies Allergies No Known Drug Allergies Allergy (Verified 03/13/24 22:30) Hospital Summary - Hospital Course Hospital Course: 68 years old very pleasant male with medical history significant for coronary artery disease, hypertension, diabetes mellitus type 2, peripheral arterial disease status post right foot amputation, recently underwent left TMT 3 weeks ago, CKD stage III. He was brought to ER from Dr. Mejia office on 03/13 for concern of acute blood loss anemia with subsequent dizziness and hypotension. As per patient he underwent [facility] that resulted in s ignificant blood loss,he felt very dizzy and blood pressure went down significantly. Patient sent to ER for further evaluation. in the ER the initial blood pressure was 63/45, his hemoglobin dropped from 9.6---->7.3, he denied chest pain shortness of breath, did not have any other GI urinary symptoms. After 1 L of Ns, BP improved to systolic more than 80, As far as blood workup concerned all came out unremarkable except creatinine went up to 1.6, bicarb is 14, anion gap 26, blood sugar running more than 400, beta-hydroxybutyrate pending patient is admitted for concern of hypovolemic shock due to acute blood loss anemia. 2 units blood arranged and patient admitted for further care. Today HGB 8.2 after 2 units of PRBC. Glucose 144 this AM. PICC line pulled out overnight and will need replaced for OP IV meds. After this pt november d/c. - Vitals & Intake/Output Vital Signs: Vital Signs Temperature 98.0 F 03/14/24 07:24 Pulse Rate 99 H 03/14/24 07:24 Respiratory Rate 16 03/14/24 07:24 Blood Pressure 120/64 03/14/24 07:24 O2 Sat by Pulse Oximetry 96 03/14/24 07:24 Intake & Output: Intake & Output 03/11/24 03/12/24 03/13/24 03/14/24 11:59 11:59 11:59 11:59 Intake Total 1840 Output Total 600 Balance 1240 Weight 100.2 kg - Lab Result Diagrams: 03/14/24 07:25 03/14/24 04:45 Lab Results-Last 24 Hrs: Lab Results-Last 24 Hours 03/13/24 03/13/24 03/13/24 Range/Units 19:10 19:10 19:10 WBC 9.8 H (4.23-9.07) x10^3/uL RBC 2.86 L (4.63-6.08) x10^6/uL Hgb 7.3 L D (13.7-17.5) g/dL Hct 25.2 L (40.1-51.0) % MCV 88.1 D (79.0-92.2) fL MCH 25.5 L (25.7-32.2) pg MCHC 29.0 L (32.3-36.5) g/dL RDW 14.7 H (11.6-14.4) % Plt Count 441 H D (163-337) x10^3/uL MPV 9.1 L (9.4-12.4) fL Gran % 85.1 H (34.0-67.9) % Immature Gran % (Auto) 2.3 H (0.001-0.429) % Nucleat RBC Rel Count 0.0 (0.00-0.2) % Eos # (Auto) 0 L (0.04-0.54) x10^3/uL Immature Gran # (Auto) 0.22 H (0.001-0.031) x10^3u/L Absolute Lymphs (auto) 0.92 L (1.32-3.57) x10^3/uL Absolute Monos (auto) 0.28 L (0.30-0.82) x10^3/uL Absolute Nucleated RBC 0.00 (0.00-0.012) x10^3u/L Lymphocytes % 9.4 L (21.8-53.1) % Monocytes % 2.9 L (5.3-12.2) % Eosinophils % 0.0 L (0.8-7.0) % Basophils % 0.3 (0.2-1.2) % Absolute Granulocytes 8.32 H (1.78-5.38) x10^3/uL Basophils # 0.03 (0.01-0.08) x10^3/uL Sodium 137 (135-145) mmol/L Potassium 5.2 H D (3.5-5.1) mmol/L Chloride 102 (98-107) mmol/L Carbon Dioxide 14 L* (22-30) mmol/L Anion Gap 26.9 H (5-15) MEQ/L BUN 18 (9-20) mg/dL Creatinine 1.60 H (0.66-1.25) mg/dL Estimated GFR 46.4 ML/MIN Glucose 294 H (74-106) mg/dL POC Glucometer (74 to 106) mg/dL Calcium 9.2 (8.4-10.2) mg/dL Total Bilirubin 0.40 (0.2-1.3) mg/dL AST 47 (17-59) U/L ALT 46 (0-50) U/L Alkaline Phosphatase 88 (38-126) U/L Troponin I < 0.012 (0.000-0.033) ng/mL Serum Total Protein 5.4 L (6.3-8.2) g/dL Albumin 2.9 L (3.5-5.0) g/dL ABO Group Rh Factor Antibody Screen (NEGATIVE) Crossmatch (COMPATIBLE) 03/13/24 03/13/24 03/13/24 Range/Units 19:10 19:10 23:30 WBC (4.23-9.07) x10^3/uL RBC (4.63-6.08) x10^6/uL Hgb (13.7-17.5) g/dL Hct (40.1-51.0) % MCV (79.0-92.2) fL MCH (25.7-32.2) pg MCHC (32.3-36.5) g/dL RDW (11.6-14.4) % Plt Count (163-337) x10^3/uL MPV (9.4-12.4) fL Gran % (34.0-67.9) % Immature Gran % (Auto) (0.001-0.429) % Nucleat RBC Rel Count (0.00-0.2) % Eos # (Auto) (0.04-0.54) x10^3/uL Immature Gran # (Auto) (0.001-0.031) x10^3u/L Absolute Lymphs (auto) (1.32-3.57) x10^3/uL Absolute Monos (auto) (0.30-0.82) x10^3/uL Absolute Nucleated RBC (0.00-0.012) x10^3u/L Lymphocytes % (21.8-53.1) % Monocytes % (5.3-12.2) % Eosinophils % (0.8-7.0) % Basophils % (0.2-1.2) % Absolute Granulocytes (1.78-5.38) x10^3/uL Basophils # (0.01-0.08) x10^3/uL Sodium (135-145) mmol/L Potassium (3.5-5.1) mmol/L Chloride (98-107) mmol/L Carbon Dioxide (22-30) mmol/L Anion Gap (5-15) MEQ/L BUN (9-20) mg/dL Creatinine (0.66-1.25) mg/dL Estimated GFR ML/MIN Glucose (74-106) mg/dL POC Glucometer (74 to 106) mg/dL Calcium (8.4-10.2) mg/dL Total Bilirubin (0.2-1.3) mg/dL AST (17-59) U/L ALT (0-50) U/L Alkaline Phosphatase (38-126) U/L Troponin I < 0.012 (0.000-0.033) ng/mL Serum Total Protein (6.3-8.2) g/dL Albumin (3.5-5.0) g/dL ABO Group A Rh Factor POSITIVE Antibody Screen NEGATIVE (NEGATIVE) Crossmatch COMPATIBLE COMPATIBLE (COMPATIBLE) 03/14/24 03/14/24 03/14/24 Range/Units 00:36 04:45 04:45 WBC 12.5 H (4.23-9.07) x10^3/uL RBC 3.05 L (4.63-6.08) x10^6/uL Hgb 8.2 L (13.7-17.5) g/dL Hct 26.6 L (40.1-51.0) % MCV 87.2 (79.0-92.2) fL MCH 26.9 (25.7-32.2) pg MCHC 30.8 L (32.3-36.5) g/dL RDW 14.7 H (11.6-14.4) % Plt Count 313 (163-337) x10^3/uL MPV 9.2 L (9.4-12.4) fL Gran % (34.0-67.9) % Immature Gran % (Auto) (0.001-0.429) % Nucleat RBC Rel Count (0.00-0.2) % Eos # (Auto) (0.04-0.54) x10^3/uL Immature Gran # (Auto) (0.001-0.031) x10^3u/L Absolute Lymphs (auto) (1.32-3.57) x10^3/uL Absolute Monos (auto) (0.30-0.82) x10^3/uL Absolute Nucleated RBC (0.00-0.012) x10^3u/L Lymphocytes % (21.8-53.1) % Monocytes % (5.3-12.2) % Eosinophils % (0.8-7.0) % Basophils % (0.2-1.2) % Absolute Granulocytes (1.78-5.38) x10^3/uL Basophils # (0.01-0.08) x10^3/uL Sodium 133 L (135-145) mmol/L Potassium 5.1 (3.5-5.1) mmol/L Chloride 103 (98-107) mmol/L Carbon Dioxide 19 L (22-30) mmol/L Anion Gap 16.9 H (5-15) MEQ/L BUN 22 H (9-20) mg/dL Creatinine 1.55 H (0.66-1.25) mg/dL Estimated GFR 48.2 ML/MIN Glucose 241 H (74-106) mg/dL POC Glucometer (74 to 106) mg/dL Calcium 8.7 (8.4-10.2) mg/dL Total Bilirubin (0.2-1.3) mg/dL AST (17-59) U/L ALT (0-50) U/L Alkaline Phosphatase (38-126) U/L Troponin I 0.026 (0.000-0.033) ng/mL Serum Total Protein (6.3-8.2) g/dL Albumin (3.5-5.0) g/dL ABO Group Rh Factor Antibody Screen (NEGATIVE) Crossmatch (COMPATIBLE) 03/14/24 03/14/24 03/14/24 Range/Units 04:45 07:09 07:25 WBC (4.23-9.07) x10^3/uL RBC (4.63-6.08) x10^6/uL Hgb 8.5 L (13.7-17.5) g/dL Hct 26.0 L (40.1-51.0) % MCV (79.0-92.2) fL MCH (25.7-32.2) pg MCHC (32.3-36.5) g/dL RDW (11.6-14.4) % Plt Count (163-337) x10^3/uL MPV (9.4-12.4) fL Gran % (34.0-67.9) % Immature Gran % (Auto) (0.001-0.429) % Nucleat RBC Rel Count (0.00-0.2) % Eos # (Auto) (0.04-0.54) x10^3/uL Immature Gran # (Auto) (0.001-0.031) x10^3u/L Absolute Lymphs (auto) (1.32-3.57) x10^3/uL Absolute Monos (auto) (0.30-0.82) x10^3/uL Absolute Nucleated RBC (0.00-0.012) x10^3u/L Lymphocytes % (21.8-53.1) % Monocytes % (5.3-12.2) % Eosinophils % (0.8-7.0) % Basophils % (0.2-1.2) % Absolute Granulocytes (1.78-5.38) x10^3/uL Basophils # (0.01-0.08) x10^3/uL Sodium 135 (135-145) mmol/L Potassium 5.1 (3.5-5.1) mmol/L Chloride 104 (98-107) mmol/L Carbon Dioxide 23 (22-30) mmol/L Anion Gap 13.1 (5-15) MEQ/L BUN 25 H (9-20) mg/dL Creatinine 1.33 H (0.66-1.25) mg/dL Estimated GFR 57.9 ML/MIN Glucose 158 H (74-106) mg/dL POC Glucometer 144 H (74 to 106) mg/dL Calcium 9.1 (8.4-10.2) mg/dL Total Bilirubin (0.2-1.3) mg/dL AST (17-59) U/L ALT (0-50) U/L Alkaline Phosphatase (38-126) U/L Troponin I (0.000-0.033) ng/mL Serum Total Protein (6.3-8.2) g/dL Albumin (3.5-5.0) g/dL ABO Group Rh Factor Antibody Screen (NEGATIVE) Crossmatch (COMPATIBLE) Micro Results-Entire Visit: Accuchecks Date 03/14/24 - Radiology Exams Ordered Rad Exams-Entire Visit: Radiology Procedures Category Date Time Status CHEST 1 VIEW (PORTABLE) Routine Exams 03/14/24 07:39 Completed - Procedures and Test Procedures and Tests throughout Hospitalization: Therapy Orders & Screens 03/13/24 22:24 OT Screen per Nursing Assess ONCE Comment: Protocol Order Physician Instructions: Greater than 3 points order OT Admission Screening Reason For Exam: Triggered on Admission Diagnosis: Symptomatic anemia, hypotension Open Wound/Cellutlitis/Pressure Ulcers: Yes Acute Fx/ORIF/Change in wt bearing status: No Severe MUSCULOSKELETAL pain: No ADL Dysfunction: No Acute CVA w/Hemiparesis/Hemiplegia: No Decreased Functional Mobility/Strength: No Sprain/Strain: No Acute Post-op Mobility Dysfunction: No Total Points: 5 PT Screen per Nursing Assess ONCE Comment: Protocol Order Physician Instructions: Greater than 3 points order PT Admission Screenin Reason For Exam: Triggered on Admission Diagnosis: Symptomatic anemia, hypotension Open Wound/Cellutlitis/Pressure Ulcers: Yes Acute Fx/ORIF/Change in wt bearing status: No Severe MUSCULOSKELETAL pain: No ADL Dysfunction: No Acute CVA w/Hemiparesis/Hemiplegia: No Decreased Functional Mobility/Strength: No Sprain/Strain: No Acute Post-op Mobility Dysfunction: No Total Points: 5 Discharge Exam General Appearance: no apparent distress, alert Neurologic Exam: alert, oriented x 3, cooperative, normal mood/affect, nml cerebellar function, sensation nml, No motor deficits Eye Exam: PERRL, EOMI, eyes nml inspection Ears, Nose, Throat Exam: normal ENT inspection, pharynx normal, moist mucous membranes Neck Exam: normal inspection, non-tender, supple, full range of motion Respiratory Exam: normal breath sounds, lungs clear, No respiratory distress Cardiovascular Exam: regular rate/rhythm, normal heart sounds Gastrointestinal/Abdomen Exam: soft, No tenderness, No mass Male Genitalia Exam: deferred Rectal Exam: deferred Back Exam: normal inspection, normal range of motion, No CVA tenderness, No vertebral tenderness Extremity Exam: normal inspection, normal range of motion, other (LLE wrapped) Skin Exam: normal color, warm, dry Wound Assessment: Skin/Wound Assessment Wound/Incision Assessment Start: 03/13/24 22:2 4 Text: Status: Active Freq: Q6H Protocol: Document 03/14/24 08:00 ALMA (Rec: 03/14/24 08:22 ALMA [id number]) Wound/Incision Assessment Left Upper Thigh Wound Assessment Shift Assessment Wound Type SKIN GRAFT Wound Stage Non Pressure Wound Dressing Status Dry & Intact Drainage Amount Minimal Comment SMALL SHADOWING NOTED Right inner buttock Wound Assessment Shift Assessment Wound Type Skin Tear General Appearance Open to air Surrounding Tissue [place] Comment WILL APPLY BARRIER CREAM Left Foot Wound Assessment Shift Assessment Wound Type Incision Wound Stage Non Pressure Wound Dressing Status Dry & Intact Drainage Amount None Comment DRESSING IS CLEAN, DRY AND INTACT Final Diagnosis/Problem List - Final Discharge Diagnosis/Problem (1) Postoperative wound hemorrhage Current Visit: Yes Status: Acute Assessment & Plan: - Post surgical procedure with podiatry - 2 units PRBC gave last night - Hgb stable 8.2 today Code(s): HDB0259 - (2) Symptomatic anemia Current Visit: Yes Status: Resolved Assessment & Plan: - resolved sxs after 2 units PRBC Code(s): D64.9 - ANEMIA, UNSPECIFIED (3) Acute renal injury Current Visit: Yes Status: Acute Assessment & Plan: - improved creat 1.33- BL 0.94- f/u OP Code(s): N17.9 - ACUTE KIDNEY FAILURE, UNSPECIFIED (4) Metabolic acidosis Current Visit: Yes Status: Acute Assessment & Plan: - resolved Code(s): E87.20 - ACIDOSIS, UNSPECIFIED (5) Hypotension Current Visit: Yes Status: Resolved Assessment & Plan: - resolved Code(s): I95.9 - HYPOTENSION, UNSPECIFIED (6) PIC line (peripherally inserted central catheter) removal Current Visit: Yes Status: Acute Assessment & Plan: - PICC line pulled out by pt last night accidentally - Replace PICC line today- as needed for OP antibiotics for LLE wound - Pt was receiving OP IV antibiotics DAIRY BACTERIOLOGIST Code(s): Z45.2 - ENCOUNTER FOR ADJUSTMENT AND MANAGEMENT OF VAD (7) Type II diabetes mellitus Current Visit: Yes Status: Chronic Assessment & Plan: - zulma ac/hs - Humalog s/s - Discharge Discharge Date: 03/14/24 ([facility]) Disposition: XFER OTHER Condition: Stable Prescriptions: Continue Insulin Lispro 40 unit SQ TIDAC Gabapentin [Neurontin ] 300 mg PO TID Fenofibrate 200 mg PO HS Tamsulosin HCl 0.4 mg [Flomax 0.4 MG] 0.4 mg PO HS Atorvastatin Calcium 80 mg PO HS Lisinopril 10 mg [Zestril 10 MG] 20 mg PO DAILY Clopidogrel Bisulfate [Clopidogrel] 75 mg PO DAILY Duloxetine HCl 30 mg PO DAILY Tirzepatide [Mounjaro] 10 mg SQ WEEKLY Nitroglycerin 0.4 mg Tablet [Nitrostat 0.4 MG Tablet] 0.4 mg SL UD PRN PRN Reason: Chest Pain Rivaroxaban [Xarelto] 2.5 mg PO BID Cholecalciferol (Vitamin D3) [Vitamin D3] 125 mcg PO DAILY Aspirin EC 81 mg [Ecotrin 81 mg] 81 mg PO DAILY Omeprazole 40 mg PO DAILY Ertugliflozin Pidolate [Steglatro] 15 mg PO DAILY Oxycodone HCl/Acetaminophen [Oxycodone-Acetaminophn 7.5-325] 1 tab PO Q6H PRN PRN PRN Reason: Pain Metoprolol Tartrate 25 mg [Lopressor 25MG Tab] 12.5 mg PO BID Hydrocodone/Acetaminophen [Hydrocodone-Acetamin 7.5-325] 1 tab PO Q4H PRN PRN PRN Reason: Moderate To Severe Pain Insulin Glargine,Hum.rec.anlog [Lantus] 10 unit SQ HS Follow up with: BRIAN STONE MD [Primary Care Provider] -
[2024-03-14] MEDS ORDERED: MAXIPIME 1 GM IV SCH (11:23)
[2024-03-14 11:41] LABS: INR 1.08 (0.8-3.0); PROTIME 11.7 SECONDS (9.4-12.5); PTT 27.1 SECONDS (25.1-36.5)
[2024-03-14] MEDS ORDERED: Maxipime 2 GM** 2 G in Sodium Chloride 0.9% 100 ML IV SCH (12:00)
[2024-03-14] MEDS: Maxipime 2 GM** 2 G in Dextrose 5%/Water IV Soln. 100ML PLUS BAG 100 ML IV SCH (12:06)
--- NOTE | 2024-03-14 14:24 | XRAY ---
Indication: Ultrasound guidance for PICC line placement. Initial sonographic imaging of the left upper extremity was performed for localization of patent veins. A patent basilic vein identified above the elbow. Ultrasound guidance was then used for PICC line insertion. Full PICC line insertion is reported separately.
--- NOTE | 2024-03-14 14:26 | XRAY ---
Indication: Long-term IV access and therapy for left foot osteomyelitis. Informed consent obtained. Patient was placed on the fluoroscopic table in a supine position. Initial sonographic imaging of the right upper extremity was performed for localization of patent veins. The right upper extremity was then prepped and draped in sterile fashion. Tourniquet applied. 1% lidocaine plain used for local anesthesia. Using ultrasound guidance and a micropuncture needle, a basilic vein above the elbow was successfully percutaneously cannulized. A floppy tip 0.018 guidewire inserted. Tourniquet released. Needle was exchanged for a 5 [place]in dilator peel away sheath catheter. Ultimately a 5 [place] double-lumen PICC line was inserted over a longer 0.018 guidewire. Catheter and guidewire further advanced and positioned in the distal SVC using fluoroscopic guidance. Guidewire removed. Both ports flushed with heparinized saline. Catheter was secured. Postoperative instructions and orders given. Patient discharged in good condition. Impression: Technically successful right upper extremity PICC line placement using ultrasound and fluoroscopic guidance. No immediate complications. Approximately 2 cc blood loss. Approximately 0.2 minute of fluoroscopy used. Catheter length is 43 cm.
[2024-03-14] MEDS: Zestril 20 MG PO SCH (15:06)
[2024-03-14] MEDS: Toprol-Xl 25MG Tablets PO SCH (15:06)
[2024-03-14] MEDS: NEURONTIN PO SCH (15:06)
[2024-03-14 15:33] VITALS: BP 139/66; PULSE 114; RESP 18; TEMP 98.1; O2SAT 99
[2024-03-14] MEDS ORDERED: PROTONIX 40 MG IV IV SCH (22:00)
[2024-03-14] MEDS ORDERED: NON-FORMULARY ITEM (Atorvastatin Calcium [Atorvastatin Calcium] 80 MG Tablet) PO SCH (22:00)
[2024-03-14] MEDS ORDERED: NON-FORMULARY ITEM (Fenofibrate [Fenofibrate] 160 MG Tablet) PO SCH (22:00)
[2024-03-14] MEDS ORDERED: Tricor 145 MG PO SCH (22:00)
[2024-03-14] MEDS ORDERED: ZOCOR 20MG PO SCH (22:00)
[2024-03-14] MEDS ORDERED: Lantus Insulin SQ SCH (22:00)
[2024-03-14] MEDS ORDERED: Flomax 0.4 MG PO SCH (22:00)
== END 2024-03-14 17:00 ==
LOC: ED 18:57 → MED SURG 21:55
PROVIDERS: ADMIT Internal Medicine; ATTEND Internal Medicine
DX: L76.22 Postprocedural hemorrhage of skin and subcutaneous tissue following other procedure (principal); D64.9 Anemia, unspecified; N17.9 Acute kidney failure, unspecified; E87.20 Acidosis, unspecified; E11.22 Type 2 diabetes mellitus with diabetic chronic kidney disease; I12.9 Hypertensive chronic kidney disease with stage 1 through stage 4 chronic kidney disease, or unspecified chronic kidney disease; N18.30 Chronic kidney disease, stage 3 unspecified; I95.9 Hypotension, unspecified; I25.10 Atherosclerotic heart disease of native coronary artery without angina pectoris; I25.2 Old myocardial infarction; Z45.2 Encounter for adjustment and management of vascular access device; Z79.899 Other long term (current) drug therapy; Z79.01 Long term (current) use of anticoagulants; Z95.0 Presence of cardiac pacemaker
CPT/HCPCS: 36000; 36415; 36430; 36573; 71045; 76937; 77001; 80048; 80053; 82010; 82947; 84484; 85014; 85018; 85025; 85027; 85610; 85730; 86850; 86900; 86901; 86922; 93005; 93041; 94760; 96360; 99285; P9016; Q3014; C1769; G0378; J0692; J1817; A9270-GY

== ENCOUNTER 2024-04-05 10:37 | Day surgery (SDC) | payer MEDICARE, SELFPAY ==
[~2024-04-05 10:37] MED LIST: MINERAL OIL LIGHT 10 ML FOR SURGERY ONE; Marcaine Mpf 0.5% Vial 30 Ml ONE; Thrombin-JMI 5000 UNITS TP ONE; XYLOCAINE 1% HCL 20 ML MDV ONE; XYLOCAINE 1%/Epi 1:100000 MDV 20 ML ONE
[2024-04-05] MEDS ORDERED: Versed 2 MG/2 ML Injection ONE ×2 (10:53→11:50)
[2024-04-05] MEDS ORDERED: DIPRIVAN 200 MG/20 ML IV ONE ×2 (10:55→12:45)
[2024-04-05] MEDS ORDERED: Sodium Chloride 0.9% 1000 ML 1,000 ML ONE (11:11)
[2024-04-05] MEDS ORDERED: CEFAZOLIN 2 GM/100 ML NaCl 2 GM/100 ML IVPB IV ONE (11:11)
[2024-04-05 11:19] LABS: Absolute Neutrophil Ct (ANC) 5.96 x10^3/uL (1.78-5.38); BASOPHIL % 0.8 % (0.2-1.2); Basophil (Absolute #) 0.07 x10^3/uL (0.01-0.08); Eosinophil % 1.2 % (0.8-7.0); Hematocrit 28.7 % (40.1-51.0); Hemoglobin 8.7 g/dL (13.7-17.5); IMMATURE GRAN # 0.05 x10^3u/L (0.001-0.031); IMMATURE GRAN % 0.6 % (0.001-0.429); Lymphocyte (Absolute #) 1.78 x10^3/uL (1.32-3.57); Mean Cell Volume 82.2 fL (79.0-92.2); Mean Corpuscular Hemoglobin 24.9 pg (25.7-32.2); Mean Corpuscular Hgb Concent. 30.3 g/dL (32.3-36.5); Mean Platelet Volume 8.4 fL (9.4-12.4); Monocyte (Absolute #) 0.52 x10^3/uL (0.30-0.82); Monocytes % 6.1 % (5.3-12.2); Neutrophil % 70.3 % (34.0-67.9); Platelet Count 373 x10^3/uL (163-337); Red Blood Count 3.49 x10^6/uL (4.63-6.08); Red Cell Distribution Width 15.8 % (11.6-14.4); White Blood Count 8.5 x10^3/uL (4.23-9.07)
[2024-04-05] MEDS: Sodium Chloride 0.9% 1000 ML 1,000 ML IV SCH (11:19)
[2024-04-05] MEDS: CEFAZOLIN 2 GM/100 ML NaCl 2 GM/100 ML IVPB IV SCH (11:20)
[2024-04-05] MEDS ORDERED: Amidate 20 MG/10 ML IV ONE ×2 (11:27→11:28)
[2024-04-05] MEDS ORDERED: Xylocaine-Mpf 2% 5 Ml Vial ONE (11:28)
[2024-04-05] MEDS ORDERED: Zofran 4 MG/2 ML VIAL ONE (11:28)
[2024-04-05] MEDS ORDERED: ROCURONIUM BROMIDE IV ONE (11:28)
[2024-04-05 11:33] LABS: ALBUMIN 3.6 g/dL (3.5-5.0); ANION GAP 11.2 MEQ/L (5-15); BILIRUBIN,TOTAL 0.5 mg/dL (0.2-1.3); Creatinine 1 0.81 mg/dL (0.66-1.25); EST GLOMERULAR FILTRATION RATE 94.9 ML/MIN; Potassium 4.3 mmol/L (3.5-5.1); Total Protein 7.3 g/dL (6.3-8.2)
[2024-04-05] MEDS ORDERED: MORPHINE SULFATE 2 MG INJ ONE ×2 (11:46→16:30)
[2024-04-05] MEDS: MORPHINE SULFATE 2 MG INJ IV ONE (11:49)
[2024-04-05] MEDS ORDERED: SUBLIMAZE 100 MCG/2 ML ONE (12:46)
[2024-04-05 13:15] LABS: ABO TYPING A; Antibody Screen NEGATIVE (NEGATIVE); RH TYPING POSITIVE
[2024-04-05] MEDS ORDERED: PHENYLEPHRINE HCL ONE (13:49)
[2024-04-05] MEDS ORDERED: BRIDION 200MG/2ML IV ONE (15:44)
[2024-04-05 16:12] LABS: Hematocrit 26.8 % (40.1-51.0); Hemoglobin 7.9 g/dL (13.7-17.5)
[2024-04-05 16:53] VITALS: RESP 18; TEMP 97; O2SAT 98
[2024-04-05 16:59] VITALS: BP 124/60; PULSE 91
--- NOTE | 2024-04-08 18:28 | OP ---
SURGERY DATE/TIME: 04/05/2024 4303-2053 PREOPERATIVE DIAGNOSES: 1) Osteomyelitis. 2) Severe peripheral vascular disease. 3) Diabetes mellitus. 4) Diabetic peripheral neuropathy. 5) Diabetic foot ulcer. POSTOPERATIVE DIAGNOSES: 1) Osteomyelitis. 2) Severe peripheral vascular disease. 3) Diabetes mellitus. 4) Diabetic peripheral neuropathy. 5) Diabetic foot ulcer. PROCEDURES: 1) Incision and drainage with bone debridement to level of ankle. 2) Revision of intrinsic muscle flap. 3) Synthetic skin substitute, less than 100 sq. cm. 4) Split-thickness skin graft, left thigh to left foot. 5) Application of negative wound VAC pressure therapy. SURGEON: Shaheen Jacobsen DPM CLINICAL NEUROPSYCHOLOGIST: 1) SOLEDAD Siddiqui 2) Tahmina Jasso, student surgical assistant director of residence life/certified surgical garment assembly supervisor. STUDENT SURGICAL DIRECTOR OF ENROLLMENT RESPONSIBILITIES: Application of negative pressure wound VAC therapy and harvest of split-thickness skin graft. ANESTHESIA: General. HEMOSTASIS: Pressure dressing. ESTIMATED BLOOD LOSS: Approximately 5 mL. MATERIALS: An Acera Surgical Restrata mesh 10.0 x 12.5 cm, 3-0 nylon, 4-0 Monocryl, 2-0 Vicryl, and a Medela wound VAC. INJECTABLES: None. INDICATIONS FOR PROCEDURE: Patient is a very pleasant 69-year-old male, very well known to my service for severe peripheral vascular disease and unfortunately failing limb salvage attempts at this time. Patient did have some further demarcation at the level of the dorsalis pedis angiosome and required further debridement. 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 Unfortunately, this has resulted in a loss of the intrinsic muscle flaps where there is now exposed talus. On followup in the office earlier this week, the patient did have some indications of further infection, at least at the level of soft tissue and wished to proceed with continued limb salvage efforts. Patient has been made aware of the reality and percentage of success at this time. Given his healthy bleeding at the edge of the wound and his adequate plantar flap coverage as well as his posterior tibial and perforating peroneal blood supply, I do feel that there is a potential chance for salvage. However, patient has been made aware that the next step will likely be a below-knee amputation if there is no success with our treatment. Patient understands this and wishes to proceed. Patient has been made aware of all risks, complications, and benefits of surgical intervention at this time including but not limited to infection, hematoma, seroma, possibility of delayed wound healing, non-wound healing, and possible need for further surgical intervention. Patient has been made aware. No guarantees are provided as to the outcome of surgical intervention at this time. However, aggressive measures have been made in order to salvage at this time. It is at this time we decided to proceed. Patient has been counseled on adequate protein intake. The measurements prior to wound synthetic graft placement were measured to be 10.5 x 11.5. I do believe that this is a medical necessity for the patient to succeed in wound healing at this time. DESCRIPTION OF PROCEDURE AND FINDINGS: The patient was brought into the operating room, placed on the operating room table in the supine position at this time. General anesthesia was administered until the patient was adequately sedated. The left lower extremity was prepped and draped from the hip down in the typical sterile fashion. Following this, attention was directed to the foot where the demarcation was identified. This was excised sharply, perpendicular to the skin edges, debriding until healthy bleeding edge was identified. From that standpoint, all demarcated tissue circumferentially was removed from the wound site revealing healthy bleeding edges of the wound. Following this, the muscle flap was revised and debrided of any devitalized tissue and desiccating tissue at the surface. Once again, healthy bleeding surface was appreciated. The talus was exposed at this time and, as a result, decision was made to go ahead and decorticate the bone to a healthy bleeding subchondral plate in order for better blood flow than the exposed cartilage on the talar head for increased blood flow to this area. From that standpoint, fish scaling and fenestration took place utilizing an osteotome and mallet and debridement utilizing a curette. Once this was accomplished, 1 L of Bactisure was utilized to flush the surgical site and then 3000 mL of sterile saline was utilized to flush the remaining site. 2-0 Vicryl was then utilized to secure the intrinsic muscle flap to the portion of the adipofascial tissue on the dorsalis pedis which was secured with relatively strong strength. Following this, an Acera 10.5 x 12.5 graft was then secured to the wound base within the footprint of the wound and was sutured down with simple interrupted Monocryl along the subcutaneous plane. Following this, harvest of a split-thickness skin graft was performed utilizing a 3-inch blade with the dermatome set to 16 thousandths of an inch. Once this was performed, it was run through a 1:1.5 dermatome mesher and placed over the synthetic skin substitute. Once this was performed, a running interlocking stitch was utilized to secure the periphery of the split-thickness skin graft on the wound base. Adaptic was then placed over the split-thickness skin graft, and a negative pressure wound VAC therapy system was applied to the forefoot, gaining excellent apposition of the graft to the surgical site with 125 mmHg of pressure with no appreciated leaks. Following this, a multilayer compression dressing was applied to the patient's left lower extremity. Patient was then reversed from anesthesia and returned to the postoperative anesthesia care unit with vital signs stable and vascular status intact. Patient handled the anesthesia as well as the procedure without significant complication. Postoperative orders as indicated in the patient's discharge chart.
== END 2024-04-05 17:55 | disposition home or self-care (01) ==
LOC: SDC 10:37
PROVIDERS: ATTEND Podiatrist Foot & Ankle Surgery
DX: M86.9 Osteomyelitis, unspecified (principal); E11.51 Type 2 diabetes mellitus with diabetic peripheral angiopathy without gangrene; E11.42 Type 2 diabetes mellitus with diabetic polyneuropathy; E11.621 Type 2 diabetes mellitus with foot ulcer
CPT/HCPCS: 15100; 15275; 15738; 28005; 36415; 80053; 85014; 85018; 85025; 86850; 86900; 86901; 93005; 97608; A2007; A6260; J0690; J1642; J2250; J2270; J2371; J2405; J2704; J3010; A9270-GY; Q4158